=== PATIENT | female | born 1960 | race Caucasian/White ===

== ENCOUNTER 2020-03-25 08:28 | Outpatient (CLI) | payer BC, SELFPAY ==
--- NOTE | ~2020-03-25 | MM_ITS ---
EXAMINATION: MM screening nancy BI w dominique HISTORY: Screening mammogram TECHNIQUE: Craniocaudal and mediolateral oblique 3-D tomosynthesis images were obtained and synthetic 2-D images were generated. CAD analysis was submitted and interpreted. COMPARISON: 03/12/2019, 09/07/2017, 05/23/2015 bilateral digital screening mammogram examinations BREAST PARENCHYMAL COMPOSITION: There are scattered areas of fibroglandular density. FINDINGS: There is a biopsy marker or suture on the left; history of prior benign left breast biopsy. Scattered bilateral benign calcifications are noted. There is no evidence of suspicious mass, calcifi cation, or architectural distortion to suggest malignancy in either breast. There has been no suspici ous interval change. IMPRESSION: 1. No mammographic evidence of malignancy. 2. Recommend routine screening mammography in one year. BI-RADS Category 2: Benign finding(s). Reviewed, dictated and finalized at location A.
== END 2020-03-25 08:29 | disposition home or self-care (01) ==
PROVIDERS: PCP Family Medicine; Visit Provider Student in an Organized Health Care Education/Training Program
DX: Z12.31 Encounter for screening mammogram for malignant neoplasm of breast (principal)
CPT/HCPCS: 77063; 77067

== ENCOUNTER 2020-06-13 10:30 | Outpatient (NON) | payer BC, SELFPAY ==
[2020-06-13 23:29] LABS: SARS-CoV-2 RNA PCR Positive
== END 2020-06-13 10:31 ==
PROVIDERS: PCP Family Medicine; Visit Provider Nurse Practitioner Family
DX: U07.1 COVID-19 (principal)
CPT/HCPCS: C9803; U0003

== ENCOUNTER → 2020-10-24 07:29 | Outpatient (CLI) | payer BC, SELFPAY ==
--- NOTE | ~2020-10-24 | XR_ITS ---
XR chest 2V DATE: 10/24/2020 07:40 INDICATION: Cough. History of Covid in June 2020 TECHNIQUE: 2 views COMPARISON: 02/11/2016 2 view chest FINDINGS: Normal heart size. No hilar or mediastinal enlargement. No pulmonary infiltrate or consolid ation, pleural effusion or pulmonary vascular congestion or pneumothorax. Surgical clips overlie the upper abdomen on the right, likely due to cholecystectomy. IMPRESSION: No active cardiopulmonary disease Reviewed, dictated and finalized at location B.
== END ==
PROVIDERS: PCP Family Medicine; Visit Provider Family Medicine
DX: R05 Cough (principal); R06.00 Dyspnea, unspecified; R53.83 Other fatigue
CPT/HCPCS: 71046

== ENCOUNTER 2020-11-04 10:30 | Outpatient (RCR) | payer BC, SELFPAY ==
--- NOTE | 2020-10-09 08:58 | PTOPEVAL ---
Thank you for referring Tere Carr to [facility].? The patient is scheduled to be seen for therapy? 2 x/week for 5 weeks. Please review, sign, date and return this plan of care HORACIO. I agree with and certify that the following plan of care is medically necessary. Referring Physician Date Attending Provider: Segundo Bradley MD Physical Therapy Evaluation Diagnosis calcific tendonitis left shoulder Onset 3-4 months ago Additional Evaluation Detail She received treatment for the right shoulder 3-4 yrs ago. She received an injection on . Subjective Information She has been having issues Query Text:As Reported By Patient/ with her left shoulder for 3-4 Family months. She has the same problem on the right shoulder. 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 She has trouble sleeping on her sides. She also c/o numbness and tingling into left UE. 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 She does yoga 1x/wk, but has increased pain. Diagnostic Tests X-Rays For This Problem Yes: Multiple calcific deposits in the subacromial space Pain Assessment Pain Scale Used Numeric (1 - 10) Self Report Pain Assessment Left Shoulder(s) Reported Pain Level 3 Pain Description Numbness,Radiating,Tingling, With Movement Pain Frequency Chronic,Continuous Lowest Pain Intensity 2 Greatest Pain Intensity 7 Pain Aggravating Factors ADL's,Exercise/Activity, Lifting,Prolonged Position Cervical and Lumbar ROM Cervical ROM Cervical Lateral Flexion Right (0-50) 20 Cervical Lateral Flexion Left (0-50) 20 Cervical Rotation Right (0-90) 40 Cervical Rotation Left (0-90) 40 Cervical ROM Comments pain with motion Upper Extremity Range of Motion Scapular/ Shoulder Range of Motion Right Shoulder Flexion - Active 160 Shoulder Extension - Active 60 Shoulder Abduction - Active 120 Shoulder Medial Rotation - Active 65 Shoulder Medial Rotation - Active T10 Query Text:Reach Behind the Back Shoulder Lateral Rotation - Active 60 Shoulder Lateral Rotation - Active C6 Query Text:Reach Behind the Head
--- NOTE | 2020-10-13 08:09 | PCPTNOTE ---
Patient called & cancelled scheduled appointment this date no reason provided.
--- NOTE | 2020-10-30 08:26 | PCPTNOTE ---
Patient called & cancelled scheduled appointment this date due to not feeling well.
--- NOTE | 2020-11-04 15:05 | PTOPEVAL ---
Thank you for referring Tere Carr to [facility].? Tere has received 7 therapy visits to address her shoulder limitations. As a result of skilled therapy services she demonstrates improved shoulder motion, improved shoulder and scapular strength, improved UE pain and function. She has achieved most of her therapy goals a this time. Will DC skilled therapy service with recommendations for Tere to continue with her home program. Please review, sign, date and return this discharge noted HORACIO. I agree with and certify that the following plan of care is medically necessary. Referring Physician Date Attending Provider: Segundo Bradley MD Physical Therapy Discharge Note Diagnosis calcific tendonitis left shoulder Onset 3-4 months ago Additional Evaluation Detail She received treatment for the right shoulder 3-4 yrs ago. She received an injection on . Subjective Information She is able to move the Query Text:As Reported By Patient/ shoulder better without the Family intensity pain. she is able to carrying objects, reaching activities in all directions and daily activities. She is able to tolerate yoga class better. 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 She continues to have trouble sleeping on her sides. She denies any c/o numbness and tingling into left UE. Pain Assessment Self Report Pain Assessment Left Shoulder(s) Reported Pain Level 3 Pain Description Soreness,Tender on Palpation Pain Frequency Chronic Lowest Pain Intensity 2 Greatest Pain Intensity 6 Pain Aggravating Factors Other Pain Aggravating Factors Other Pain Aggravating Factors rolling onto shoulder or weight bearing Pain Score Pain Score 3: Self Report Interventions Used Interventions Used By Clinicians Education Cervical and Lumbar ROM Cervical ROM Cervical Lateral Flexion Right (0-50) 30 Cervical Lateral Flexion Left (0-50) 30 Cervical Rotation Right (0-90) 60 Cervical Rotation Left (0-90) 52 Upper Extremity Range of Motion Scapular/ Shoulder Range of Motion Left Shoulder Flexion - Active 170 Shoulder Extension - Active 52 Shoulder Abduction - Active 175 Shoulder Medial Rotation - Active 85 Shoulder Medial Rotation - Active T9 Query Text:Reach Behind the Back Shoulder Lateral Rotation - Active 85 Shoulder Lateral Rotation - Active T2
== END 2020-11-05 11:42 | disposition home or self-care (01) ==
LOC: ANHPT 10:30
PROVIDERS: PCP Family Medicine; Visit Provider Orthopaedic Surgery
DX: M75.32 Calcific tendinitis of left shoulder (principal)
CPT/HCPCS: 97035; 97110; 97140; 97162

== ENCOUNTER 2020-11-06 12:31 | Outpatient (CLI) | payer BC, SELFPAY ==
--- NOTE | 2020-11-06 | ECHO_ITS ---
Patient Info Name: Tere Carr Age: 60 years : 1960 Gender: Female Ht: 62 in Wt: 208 lbs BSA: 2.08 m2 HR: 78 bpm BP: 109 / 88 mmHg Heart Rhythm: Sinus Rhythm Technical Quality: Good Exam Date: 11/06/2020 1:07 PM Exam Location: [facility] Patient Status: Outpatient Admit Date: 11/06/2020 Staff Ordering Physician: Jacob, Rhea Cabrera MD Sliver Lap Machine Tender: MC Attending Provider: Jacob, Rhea Cabrera MD Referring Physician: Jacob CLEMONS; Exam Type: CA echo doppler color flow Study Info Indications - COUGH FUNG FATIGUE Complete two-dimensional, color flow and Doppler transthoracic echocardiogram is performed. Summary 1. Complete two-dimensional, color flow and Doppler transthoracic echocardiogram is performed. 2. Left ventricular chamber dimension is normal. 3. Left ventricular systolic function is normal, estimated at 55-60%. 4. There is no increased left ventricular wall thickness. 5. The left ventricular diastolic function is grade I diastolic dysfunction. 6. There is mild mitral valve regurgitation. Left Ventricle Left ventricular chamber dimension is normal. Left ventricular systolic function is normal, estimated at 55-60%. There is no increased left ventricular wall thickness. The left ventricular diastolic function is grade I diastolic dysfunction. Right Ventricle Right ventricular chamber dimension is normal. Right ventricular systolic function is normal. Left Atria Left atrial chamber dimension is normal. Right Atria Right atrial chamber dimension is normal. Atrial Septum Intact interatrial septum visualized by color flow imaging. Aortic Valve The aortic valve is trileaflet. There is mild aortic valve sclerosis. There is no aortic valve stenosis. There is trace aortic valve regurgitation. Pulmonic Valve The pulmonic valve is normal. There is no pulmonic valve stenosis. There is trace pulmonic regurgitation. Mitral Valve The mitral valve has normal leaflets. There is no mitral valve stenosis. There is mild mitral valve regurgitation. Tricuspid Valve The tricuspid valve leaflets are normal. There is no significant tricuspid valve stenosis. There is trace tricuspid valve regurgitation. Pericardium/Pleural The pericardium appears normal. There is no pericardial effusion. Inferior Vena Cava Normal inferior vena cava with >50% collapse upon inspiration consistent with normal right atrial pressure, 5 mmHg. Aorta The aortic root size at the sinus of Valsalva is normal. The prox ascending aorta size is normal. Left Ventricular Outflow Tract Name Value Normal LVOT 2D LVOT Diameter 2.2 cm LVOT Doppler LVOT Peak Gradient 4 mmHg LVOT Mean Gradient 2 mmHg LVOT VTI 20 cm LVOT VTI/AV VTI Ratio 0.9 LVOT Stroke Volume 77 ml LVOT CO 16.6 l/min LVOT CI 8.0 l/min/m2 Pulmonic Valve
== END 2020-11-06 12:32 | disposition home or self-care (01) ==
LOC: ANHCARD 12:33
PROVIDERS: PCP Family Medicine; Visit Provider Family Medicine
DX: R05 Cough (principal); R53.83 Other fatigue
CPT/HCPCS: 93306

== ENCOUNTER 2021-05-01 08:00 | Outpatient (CLI) | payer BC, SELFPAY ==
--- NOTE | ~2021-05-01 | MM_ITS ---
EXAMINATION: MM screening nancy BI w dominique HISTORY: Screening mammogram TECHNIQUE: Craniocaudal and mediolateral oblique 3-D tomosynthesis images were obtained and synthetic 2-D images were generated. CAD analysis was submitted and interpreted. COMPARISON: No prior mammogram is available for comparison at this institution. BREAST PARENCHYMAL COMPOSITION: There are scattered areas of fibroglandular density.. FINDINGS: Status post anterior upper outer quadrant left breast biopsy; history of prior benign left breast biopsy. Scattered bilateral benign calcifications. There is no evidence of suspicious mass, ca lcification, or architectural distortion to suggest malignancy in either breast. There has been no dudley spicious interval change. IMPRESSION: 1. No mammographic evidence of malignancy. 2. Recommend routine screening mammography in one year. BI-RADS Category 2: Benign finding(s). Reviewed, dictated and finalized at location A. RUNNER
== END 2021-05-01 08:01 | disposition home or self-care (01) ==
LOC: ANHIMG 08:01
PROVIDERS: PCP Family Medicine; Visit Provider Student in an Organized Health Care Education/Training Program
DX: Z12.31 Encounter for screening mammogram for malignant neoplasm of breast (principal)
CPT/HCPCS: 77063; 77067

== ENCOUNTER 2021-05-05 00:51 | Day surgery (SDC) | payer BC, SELFPAY ==
[2021-04-16 14:45] VITALS: BMI 37.2
[2021-05-05 10:24] VITALS: BP 146/93; PULSE 86; RESP 18; TEMP 36.2; O2SAT 98
[2021-05-05] MEDS: LACTATED RINGERS 1,000 ML 150 ML IV CONT (10:25)
--- NOTE | 2021-05-05 10:49 | WPDANESEPPF ---
Anes - Initial Pre Proc Eval Procedure: Operation Date: 05/05/21 11:15 Proposed Procedures p Colonoscopy - Marcos Schaffer MD Date/Time: 05/05/21 10:49 Surgeon: Marcos Schaffer MD Pre Op Diagnosis: change in bowel habits Patient Data Age: 61 Gender: F Height: 1.57 m Weight: 92.1 kg Last Vital Signs Temp 97.1 F L 05/05/21 10:24 Pulse 86 05/05/21 10:24 Resp 18 05/05/21 10:24 BP 146/93 H 05/05/21 10:24 Pulse Ox 98 05/05/21 10:24 Allergies Allergy/AdvReac Type Severity Reaction Status Date / Time No Known Allergies Allergy Verified 05/05/21 10:23 Home Medications Medication Instructions Recorded Confirmed Type fluticasone propionate 50 1 spray INTRANASAL DAILY 03/21/20 05/05/21 History mcg/actuation nasal spray,suspension lisinopril 10 mg tablet 10 mg PO DAILY 03/21/20 05/05/21 History timolol maleate 0.5 % once daily 1 drp OPHTHALMIC (EYE) DAILY 03/21/20 05/05/21 History eye drops paroxetine HCl 50 mg PO DAILY 04/16/21 05/05/21 History Patient hx anesthesia problems: none Family hx anesthesia problems: none Results Review: All pre-operative results and documents have been reviewed as part of the pre-operative evaluation. [facility] Past Medical History Medical History Calcific tendinitis of left shoulder Complete miscarriage GERD (gastroesophageal reflux disease) History of COVID-19 06/2020 Hypercholesterolemia Hypertension IBS (irritable bowel syndrome) Open angle primary glaucoma Surgical History Surgical History Cancer malignant melanoma excised right shoulder area Cholecystectomy planned H/O foot surgery H/O: hysterectomy [place] teeth removed Family History Family History Father Liver disease Mother Lung cancer Brain cancer Sibling Heart disease Social History Social History Smoking packs per day: 1 Smoking cigarettes per day: 20.0 Years smoked: 22 Smoking pack-years: 22.00 Smoking status: Former smoker Tobacco type: cigarettes Second hand tobacco smoke exposure: No Smoking end date: 06/06/99 Alcohol intake: current Drinks per week: 1 Alcohol use details: rarely Substance use: current Substance use type: marijuana Other substance usage details: weekends Living arrangements: with family Gender identity (if verbalized by the patient): Female Spiritual care concerns: No Anes - Eval Final PreProcedure Day of Procedure 05/05/21 10:49 Patient weight: obese Heart: regular rate and rhythm Lungs: clear to auscultation Airway: Mallampati scale class II Neurological: alert and oriented Last oral intake: >/= 8 hours ASA classification: III Emergent: no Anesthetic plan: proceed Anesthesia type and monitoring: general GIVS and standard monitoring Results Review: All pre-operative results and documents have been reviewed as part of the pre-operative evaluation. Informed Consent: The patient's anesthetic plan and its attendant risks and benefits were discussed with the patient/family/POA. Questions were solicited and answers provided to the satisfaction of the patient/family/POA.
--- NOTE | 2021-05-05 10:58 | WPDGICN ---
Assessment and Plan Assessment and plan (1) Change in bowel habit: Code(s): R19.4 - Change in bowel habit Status: Acute Assessment and Plan: Patient has had recent change in bowel habits with more regular stools. She feels a rectal fullness. Plan is for colonoscopy to evaluate more thoroughly. Further recommendations will be given after endoscopy. GI Consult Note Consult date/time: 05/05/21 10:58 HPI: Tere Carr is a 61 year old female Presents for colonoscopy. Patient reports that over the last 1 year his felt a fullness in her rectal area. Initially she was unsure where this emanated from. She recently saw gynecology was told that exam was unremarkable. Patient denies any bleeding. She denies any fever. She denies any pain. She has noticed that her stools have become narrowed over the last several months. Her bowel habits she reports as being irregular . She takes no medications for this. Family history is noncontributory. She does report a prior colonoscopy by Dr. Amador that was unremarkable. She does not remember when this was obtained. She presents today for colonoscopy to evaluate this fullness. Review of Systems Review of Systems: All systems reviewed & are unremarkable except as noted in HPI and below PMFSH Past Medical History Medical History Calcific tendinitis of left shoulder Complete miscarriage GERD (gastroesophageal reflux disease) History of COVID-19 06/2020 Hypercholesterolemia Hypertension IBS (irritable bowel syndrome) Open angle primary glaucoma Surgical History Surgical History Cancer malignant melanoma excised right shoulder area Cholecystectomy planned H/O foot surgery H/O: hysterectomy [place] teeth removed Family History Family History Father Liver disease Mother Lung cancer Brain cancer Sibling Heart disease Social History Social History Smoking packs per day: 1 Smoking cigarettes per day: 20.0 Years smoked: 22 Smoking pack-years: 22.00 Smoking status: Former smoker Tobacco type: cigarettes Second hand tobacco smoke exposure: No Smoking end date: 06/06/99 Alcohol intake: current Drinks per week: 1 Alcohol use details: rarely Substance use: current Substance use type: marijuana Other substance usage details: weekends Living arrangements: with family Gender identity (if verbalized by the patient): Female Spiritual care concerns: No Meds Home Medications and Allergies Home Medications Medication Instructions Recorded Confirmed Type fluticasone propionate 50 1 spray INTRANASAL DAILY 03/21/20 05/05/21 History mcg/actuation nasal spray,suspension lisinopril 10 mg tablet 10 mg PO DAILY 03/21/20 05/05/21 History timolol maleate 0.5 % once daily 1 drp OPHTHALMIC (EYE) DAILY 03/21/20 05/05/21 History eye drops paroxetine HCl 50 mg PO DAILY 04/16/21 05/05/21 History Allergies Allergy/AdvReac Type Severity Reaction Status Date / Time No Known Allergies Allergy Verified 05/05/21 10:23 Vital Signs Vital Signs - 24 hr 05/05/21 10:24 Temperature 97.1 F L Pulse Rate 86 Respiratory Rate 18 Blood Pressure 146/93 H Pulse Oximetry 98 Exam Narrative: Physical exam reveals patient to be alert. Vital signs stable. HEENT exam is unremarkable. Patient is anicteric. Lungs are clear to auscultation and to percussion. Heart is without murmur or extra sounds. Abdominal exam bowel sounds are present soft nontender with no organomegaly. Digital external rectal exam is normal.
[2021-05-05 11:19] VITALS: BP 120/75; PULSE 86; RESP 19; O2SAT 95
[2021-05-05 11:29] VITALS: BP 123/79; PULSE 80; RESP 27; O2SAT 99
[2021-05-05 11:39] VITALS: BP 125/77; PULSE 71; RESP 22; O2SAT 99
== END 2021-05-05 11:52 | disposition home or self-care (01) ==
PROVIDERS: PCP Family Medicine; Visit Provider Internal Medicine Gastroenterology
PROC: 0DJD8ZZ Inspection of Lower Intestinal Tract, Via Natural or Artificial Opening Endoscopic (ICD-10-PCS; CPT 45378; principal; 2021-05-05 11:15)
DX: R19.4 Change in bowel habit (principal); K64.8 Other hemorrhoids; K21.9 Gastro-esophageal reflux disease without esophagitis; I10 Essential (primary) hypertension; E78.00 Pure hypercholesterolemia, unspecified; K58.9 Irritable bowel syndrome, unspecified; Z86.16 Personal history of COVID-19; H40.1190 Primary open-angle glaucoma, unspecified eye, stage unspecified; Z87.891 Personal history of nicotine dependence; E66.9 Obesity, unspecified; Z68.37 Body mass index [BMI] 37.0-37.9, adult
CPT/HCPCS: 45378; J2704; J7120

== ENCOUNTER → 2021-05-16 08:34 | Outpatient (CLI) | payer BC, SELFPAY ==
[2021-05-16 20:10] LABS: SARS-CoV-2 RNA PCR Negative
== END ==
PROVIDERS: PCP Family Medicine; Visit Provider Nurse Practitioner Family
DX: R10.9 Unspecified abdominal pain (principal); Z20.822 Contact with and (suspected) exposure to COVID-19
CPT/HCPCS: C9803; U0003; U0005

== ENCOUNTER 2021-12-19 07:33 | Outpatient (CLI) | payer BC, SELFPAY ==
--- NOTE | ~2021-12-19 | MR_ITS ---
EXAMINATION: MR shoulder RT wo con DATE: 12/19/2021 08:11 INDICATION: Right shoulder pain. No trauma. History of melanoma. TECHNIQUE: Magnetic resonance imaging (MRI) of the right shoulder was performed without intravenous c ontrast. Sequences included axial PD-weighted FS FSE, coronal oblique PD-weighted FS FSE and T2-weigh hernandez FS FSE, and sagittal oblique T2-weighted FS FSE and T1-weighted FSE. COMPARISON: X-ray shoulder 02/16/2021. FINDINGS: Coracoacromial arch: Lateral downsloping of the type I acromion, with inferiorly directed AC joint osteophytes and acromia l tip enthesopathy. Subcoracoid narrowing. Rotator cuff: Signal abnormality within the superior cuff, without focal tear. Low signal foci may represent calcif ication. Biceps tendon and glenoid labrum: The long and short heads of the biceps are intact. No labral tear. Fluid: No significant glenohumeral fluid. Small volume subacromial subdeltoid fluid. Bones/cartilage: No suspicious focal or diffuse marrow signal. Glenohumeral narrowing and cartilage thinning. IMPRESSION: 1. Supraspinatus and infraspinatus tendinopathy, with evidence of calcific tendinitis. 2. Osseous outlet compromise and subcoracoid narrowing. 3. Severe AC joint hypertrophy. 4. Mild glenohumeral osteoarthritis. Reviewed, dictated and finalized at location K. IMPRESSION: 1. Supraspinatus and infraspinatus tendinopathy, with evidence of calcific tend initis. 2. Osseous outlet compromise and subcoracoid narrowing. 3. Severe AC joint hypertrophy. 4. Mild glenohumeral osteoarthritis.
== END 2021-12-19 07:34 ==
PROVIDERS: PCP Family Medicine; Visit Provider Orthopaedic Surgery
DX: M25.511 Pain in right shoulder (principal); M75.31 Calcific tendinitis of right shoulder; M19.011 Primary osteoarthritis, right shoulder
CPT/HCPCS: 73221

== ENCOUNTER 2022-01-21 08:25 | Outpatient (CLI) | payer BC, SELFPAY ==
--- NOTE | 2022-01-21 08:30 | ECG_ITS ---
Rate 80 IL 170 QRSd 78 QT 351 QTc 405 --Hope-- P 52 QRS -8 T 29 SINUS RHYTHM MINIMAL VOLTAGE CRITERIA FOR LVH, CONSIDER NORMAL VARIANT [MEETS CRITERIA IN ONE OF: R(aVL), S(V1), R(V5), R(V5/V6)+S(V1)] ABNORMAL ECG NO PREVIOUS ECG AVAILABLE FOR COMPARISON Electronically Signed On 01-21-2022 14:46:00 CDT by Theodore SURESH
== END 2022-01-21 08:26 | disposition home or self-care (01) ==
PROVIDERS: PCP Family Medicine; Visit Provider Orthopaedic Surgery
DX: I10 Essential (primary) hypertension (principal); Z01.818 Encounter for other preprocedural examination
CPT/HCPCS: 93005

== ENCOUNTER 2022-01-25 01:42 | Day surgery (SDC) | payer BC, SELFPAY ==
[2022-01-19 13:48] VITALS: BMI 35.4
--- NOTE | 2022-01-19 13:54 | PC.NURSE ---
Addendum entered by Claudia Kumar RN 01/20/22 11:04: MAY TAKE PAROXETINE MORNING OF SURGERY WITH SMALL SIP OF WATER. Original Note: Report to the Outpatient Waiting Room, entrance under the [facility] pavilion located off [facility], at time __0600 on date _01/25/22_. OR Time: _0730_. - You and your visitor will be asked to self-screen and do not enter if you have any COVID symptoms. - Only one visitor and NO children visitors are allowed at this time. - The patient visitor is requested to leave or wait in car when not with patient due to restrictions. - A mask is required within the hospital. Patients may have clear liquids (water, carbonated beverages, clear teas, apple juice) until 3 hours prior to surgery with a maximum of 20 ounces. - No food from midnight until time of surgery - Infants may have breast milk until 4 hours before surgery, infant formula 6 hours prior to surgery. - Children will be allowed to drink immediately following surgery. If applicable, please bring a bottle or sippy cup to assist with drinking. Juice, water, soda, and popsicles are readily available. For infants on formula, please bring formula the day of surgery. Pacifiers are allowed. Take the following medications with a SIP of water the morning of surgery: ____NONE Medications to discontinue per physician NONE Date to take last dose Please no make-up, nail tajik, hairspray, perfume, deodorant, or body powder the day of surgery. No jewelry (including any body piercings) or valuables the day of surgery, leave them at home. Please take a shower or bath the night before, or the morning of, surgery with an HIBICLENS OR antibacterial soap. Wear comfortable, loose fitting clothing. Children are encouraged to wear pajamas. - Jewelry must be removed prior to entering the operating room. Rings and piercings that are not removed may be cut off. - The hospital will not accept responsibility for valuables. - Please leave all valuables, including medications, at home the day of surgery. If you are going home after surgery, a licensed electric screw driver operator must drive you home. - NO public transportation without another adult. - We recommend that an adult stay with you for 24 hours following discharge. - We also recommend that you do not drive, make important decision, drink alcoholic beverages, or take any drugs that were not prescribed by your health care provider for at least 24 hours after your discharge time. For Pediatric surgeries, we recommend two adults accompany the child home (only one inside the building at this time). Follow any additional instructions given to you from your surgeon. If you or anyone in your household have experienced Covid symptoms in the past week, please notify your surgeon or the nurse liaison at the phone number below for possible testing. Telephone instructions given to __PATIENT__and asked if any additional questions and then verbalized understanding. Patient advised to call surgeon office or pre surgery nurse liaison [phone] if any additional questions.
[2022-01-25] VITALS (11 sets, daily range): BP systolic 117–167; BP diastolic 58–92; PULSE 69–109; RESP 12–20; TEMP 36–36.6; O2SAT 94–100
--- NOTE | 2022-01-25 06:45 | WPDANESEPPF ---
Anes - Initial Pre Proc Eval Procedure: Operation Date: 01/25/22 07:30 Proposed Procedures p Right Rotator Cuff Repair, Distal Clavicle Excision - Segundo Bradley MD Date/Time: 01/25/22 06:45 Surgeon: Segundo Bradley MD Pre Op Diagnosis: right AC arthritis calcification tendonitis Patient Data Age: 61 Gender: F Height: 1.57 m Weight: 88 kg Allergies Allergy/AdvReac Type Severity Reaction Status Date / Time No Known Allergies Allergy Verified 01/25/22 06:52 Home Medications Medication Instructions Recorded Confirmed Type fluticasone propionate 50 1 spray intranasal DAILY 03/21/20 01/25/22 History mcg/actuation nasal spray,suspension lisinopril 10 mg tablet 10 mg PO DAILY 03/21/20 01/25/22 History timolol maleate 0.5 % once daily 1 drp ophthalmic (eye) DAILY 03/21/20 01/25/22 History eye drops paroxetine HCl 10 mg tablet 50 mg PO DAILY 04/16/21 01/25/22 History oxybutynin chloride 5 mg tablet 10 mg PO DAILY 11/12/21 01/25/22 History Patient hx anesthesia problems: none Family hx anesthesia problems: none Results Review: All pre-operative results and documents have been reviewed as part of the pre-operative evaluation. [facility] Past Medical History Medical History (Updated 01/25/22 @ 06:48 by Jose Martinez DO) Arthritis of right acromioclavicular joint Asthma Calcific tendinitis of left shoulder Calcific tendinitis of right shoulder Complete miscarriage GERD (gastroesophageal reflux disease) Glaucoma History of COVID-19 06/2020 Hypercholesterolemia Hypertension IBS (irritable bowel syndrome) Open angle primary glaucoma RAINER (obstructive sleep apnea) PONV (postoperative nausea and vomiting) Surgical History Surgical History Cancer malignant melanoma excised right shoulder area Cholecystectomy planned H/O foot surgery H/O: hysterectomy [place] teeth removed Family History Family History Father Liver disease Mother Lung cancer Brain cancer Sibling Heart disease Social History Social History Smoking packs per day: 1 Smoking cigarettes per day: 20.0 Years smoked: 20 Smoking pack-years: 20.00 Smoking status: Former smoker Tobacco type: cigarettes Second hand tobacco smoke exposure: No Smoking end date: 06/06/99 Alcohol intake: current Drinks per week: 1 Alcohol use details: 2 PER MONTH Substance use: current Substance use type: marijuana Other substance usage details: EDIBLES, USES WEEKLY Living arrangements: with family Gender identity (if verbalized by the patient): Female Spiritual care concerns: No Anes - Eval Final PreProcedure Day of Procedure 01/25/22 06:45 Patient weight: obese Heart: regular rate and rhythm Lungs: clear to auscultation Airway: Mallampati scale class 1 Neurological: alert and oriented Last oral intake: >/= 8 hours ASA classification: III Emergent: no Anesthetic plan: proceed Anesthesia type and monitoring: general ETT and standard monitoring Results Review: All pre-operative results and documents have been reviewed as part of the pre-operative evaluation. Informed Consent: The patient's anesthetic plan and its attendant risks and benefits were discussed with the patient/family/POA. Questions were solicited and answers provided to the satisfaction of the patient/family/POA.
--- NOTE | 2022-01-25 06:48 | WPDANESPNB ---
Anes - Peripheral Nerve Block Date/Time: 01/25/22 06:48 I have discussed with the patient/family/POA the placement of a peripheral nerve block for post-operative pain management, including associated risks, benefits, complications, and side effects. Alternative methods of post-operative analgesia were detailed. Questions were solicited and answers provided to the satisfaction of the patient/family/POA. Time-Out: A pre-procedural Time-Out was completed immediately before starting the procedure and confirmed: Patient Identification, Site, Procedure, Patient Position and the Availability of Requisite Equipment. Clinical Indications: Acute post-operative pain management requested by the operative surgeon. Nerve Block Insertion Note Anes-nerve block: interscalene right Patient position: supine Skin prep: chlorhexidine Needle: 22 gauge, stimulating, insulated echogenic needle. Needle length: 50 mm Technique: ultrasound Injectate: bupivacaine 0.5% with epi 5 mcg/ml (30cc- no epi) Observations: tolerated well Complications: none Procedure start time:: 716 Procedure end time:: 720
[2022-01-25] MEDS: LACTATED RINGERS 1,000 ML 30 ML IV CONT ×2 (07:00→10:50)
--- NOTE | 2022-01-25 07:08 | WPDHPUPDATE1 ---
History and Physical Update Update Date/Time: 01/25/22 07:08 History and Physical has been reviewed, including an updated exam of the patient. There are NO changes in the patient's condition. Risks, benefits, and alternatives have been discussed and questions answered. Patient agrees to proceed with procedure.
[2022-01-25] MEDS: ACETAMINOPHEN 500 MG TABLET 1000 MG PO (07:10)
[2022-01-25] MEDS: KETOROLAC 15 MG/ML VIAL (*BKC) IV PUSH (07:12)
[2022-01-25] MEDS: ceFAZolin 2 GM/D5W 50 ML 2 GM/50 ML BAG IVPB (07:25)
[2022-01-25] MEDS: BUPIVACAINE/EPINEPHRINE 0.25% 50 ML VIAL INFILTRATE (08:02)
--- NOTE | 2022-01-25 08:43 | P.OP_ITS ---
Procedure Note - Detailed Date of Procedure 01/25/22 Pre-op Diagnosis right AC arthritis; calcific tendinitis right rotator cuff Post-op Diagnosis Same Procedure Performed Right shoulder distal clavicle excision with debridement of calcific tendinitis rotator cuff Surgeon Segundo Bradley MD Packing Tractor Machine Operator Valerie Mulligan Anesthesia General and Regional Description of Procedure Patient was identified and proper site identified. In the preop holding area the anesthesia team performed a right upper extremity block. She was then taken to the operating room and transferred to the or table taking care to pad the torso and extremities. After general anesthetic induction and intubation, she was put in a semi beach chair position in the usual manner for a right shoulder procedure. Her head was secured taking care to neither rotate nor extend the head and neck. The right upper extremity was prepped and draped free in usual sterile fashion. The subcutaneous tissue in the area of the incision was injected with 10 cc of 0.25% Marcaine and epinephrine solution. An oblique anterior incision was made extending from the AC joint distally in line with the fibers of the deltoid. Subcutaneous tissue was sharply dissected down to the deltoid fascia. The deltoid was dissected off the anterior portion of the acromion in the distal end of the clavicle. A 2 cm split was made at the junction between the anterior and middle thirds of the deltoid. Using the microsagittal saw the last 8 mm of clavicle removed. The saw was also used to perform the acromioplasty and then the undersurface of the acromion was rasped smooth. There was an abundance of thickened bursa overlying the entire rotator cuff with an erosive area corresponding to where the spurs were. This was sharply debrided allowing for complete inspection of the cuff. Along the mid to posterior portion of the greater tuberosity there was calcific stippling of the rotator cuff insertion which was debrided with a rongeur. Cuff was inspected and noted to be overall in good condition otherwise. The wound was irrigated wi th sterile NaCl solution. The deltoid was repaired back to the acromion with 2. Ethibond suture passed through bone and the remainder of the deltoid repair carried out with 2. Vicryl. Subcutaneous tissue was reapproximated with 2. Strata fix both in the deeper layers and in the subcuticular layer, then tissue adhesive used for the skin. Sterile dressing was applied. There were no known intraoperative complications, and perioperative antibiotics were administered. Estimated Blood Loss 20 Drains No Packing No Pathology None sent Complications No immediate complications Condition Stable Disposition PACU
[2022-01-25] MEDS: ONDANSETRON INJ 4 MG/2 ML VIAL IV PUSH (10:46)
== END 2022-01-25 12:05 | disposition home or self-care (01) ==
PROVIDERS: PCP Family Medicine; Visit Provider Orthopaedic Surgery
PROC: (CPT 23420; principal; 2022-01-25 07:30)
DX: M19.011 Primary osteoarthritis, right shoulder (principal); M75.51 Bursitis of right shoulder; G89.18 Other acute postprocedural pain; K21.9 Gastro-esophageal reflux disease without esophagitis; Z86.16 Personal history of COVID-19; K58.9 Irritable bowel syndrome, unspecified; I10 Essential (primary) hypertension; E78.00 Pure hypercholesterolemia, unspecified; Z87.891 Personal history of nicotine dependence; F12.90 Cannabis use, unspecified, uncomplicated; M75.31 Calcific tendinitis of right shoulder; E66.9 Obesity, unspecified; Z68.34 Body mass index [BMI] 34.0-34.9, adult
CPT/HCPCS: 23120; 64415; A4565; A9270; J0330; J0690; J1100; J1885; J2250; J2405; J2704; J3010; J7120

== ENCOUNTER 2022-02-22 09:00 | Outpatient (RCR) | payer BC, SELFPAY ==
[2022-01-27 10:05] VITALS: BP_SYST 90
--- NOTE | 2022-01-27 10:55 | PTOPEVAL ---
Thank you for referring Tere Carr to [facility].? She is scheduled to be seen for therapy? 2 x/week for 4 weeks. Please review, sign, date and return this plan of care HORACIO. I agree with and certify that the following plan of care is medically necessary. Referring Physician Date Attending Provider: Segundo Bradley MD Past Medical History Source of Past Medical History Recalled from Previous Visit, Confirmed with Patient/Family Neurological History Hx Neurological Disorders No Significant History Cardiovascular History Hx Hypertension Yes: meds Respiratory History Hx Asthma Yes: allergy-induced Hx COVID-19 Yes: 06/26 Hx Sleep Apnea Yes: wears CPAP Gastrointestinal History Hx Cholecystectomy Yes Genitourinary History Hx Urinary Tract Infection Yes Hx Other Genitourinary Disorders Yes: bladder sling surgery 2019, STRESS INCONTINENCE Musculoskeletal History Hx Orthopedic Surgery Yes: R foot surgery Hx Other Musculoskeletal Disorders Yes: B shoulder pain Hematological History Hx Hematological Disorders No Significant History Endocrine History Hx Other Endocrine Disorders Yes: gestational diabetes HEENT History Hx Glaucoma Yes: taking eye drops Hx Sinus Problems Yes: ALLERGIES Integumentary History Hx Skin Disorders No Significant History Psychosocial History Hx Psychiatric Disorders No Significant History Pain History History of Any Previous or Ongoing No Significant History Instance of Pain Other History Hx Cancer Yes: melanoma Evaluation Information Diagnosis s/p R rotator cuff surgery Onset Subjective Information chronic pain over R shoulder; Query Text:As Reported By Patient/ sling intact over R shoulder [facility]; did not have full motion of shoulder prior to surgery Prior Level of Function Activity Level (Last 3 Months) Occupation not working outside of home Hand Dominance Right Activity of Daily Living Ability Independent Indoor/Home Mobility Independent Community Mobility Independent Stairs Ability Independent Functional Cognition (Planning, Shopping Independent , Taking Medications) Cooking Yes Cleaning Yes Laundry Yes Shopping Yes Driving Yes Comments Additional Prior Level of Function prior to increase in shoulder Comments pain about one month ago, was indep with all home tasks; Pain Assessment Pain Scale
--- NOTE | 2022-02-01 08:06 | PCPTNOTE ---
Patient called & cancelled scheduled appointment this date due to no transportation.
--- NOTE | 2022-02-10 10:40 | PCPTNOTE ---
Patient called & cancelled scheduled appointment this date due to her ride to the clinic cancelling last minute.
--- NOTE | 2022-02-22 09:44 | PTOPDC ---
Assessment and note entered by Kisha Saavedra, PT Evaluation Information Assessment Status Discharge Subjective Information Tere reports: shoulder is doing better--not hurt as much, use arm all the time, doing laundry and home tasks; have not been lifting weight with it though; with sleeping, awaken 2x/night due to pain in shoulder; have not taken any pain meds in the past week; doing exercises OK; feel like ready to be done with therapy; Reported Pain Level Pain Score Self Report pain range 1-3/10 Additional Pain Score Comments use ice PRN; have not taken any pain meds in the past week; kinesiotape strips over shoulder: anterior GH>lat GH joint to scapula strip over upper traps; education to pt on monitor skin and how to apply tape; continues to have some clicking at anterior shoulder, which decreased with holding correct posture with shoulder motions /avoid rounding shoulder; Assessment PT Clinical Summary Tere has received 7 PT sessions. Compared to the initial evaluation: pain has decreased, sleeping tolerance improved; active R shoulder ROM and strength have improved; she is independent with her home exercise program. The goals were achieved. She continues to have some clicking in anterior shoulder, which is decreased with posture correction and pain when lying on her R side with sleeping. Discharge PT services. She is to continue with her HEP, progression with activity as tolerated and ice/rest as needed. Plan of Care PT Services Indicated No
== END 2022-02-22 10:58 | disposition home or self-care (01) ==
LOC: ANHPT 09:00
PROVIDERS: PCP Family Medicine; Visit Provider Orthopaedic Surgery
DX: Z48.89 Encounter for other specified surgical aftercare (principal); Z98.890 Other specified postprocedural states
CPT/HCPCS: 97110; 97161; 97530

== ENCOUNTER 2022-03-24 14:18 | Outpatient (CLI) | payer BC, SELFPAY ==
--- NOTE | ~2022-03-24 | US_ITS ---
EXAMINATION: US soft tissue head and neck DATE: 03/24/2022 14:37 INDICATION: Mass of neck. TECHNIQUE: Multiple ultrasound images of the thyroid were obtained. COMPARISON: None. FINDINGS: The right thyroid lobe measures 4.6 x 1.2 x 1.6 cm. The left thyroid lobe measures 4.6 x 1.5 x 1.4 c m. There is normal echotexture and echogenicity throughout the thyroid gland. No discrete nodules id entified. Normal vascular flow is present. There is no abnormal mass or lymphadenopathy. IMPRESSION: 1. Normal thyroid. Reviewed, dictated and finalized at location A. IMPRESSION: 1. Normal thyroid.
== END 2022-03-24 14:19 ==
LOC: MICIMG 14:20
PROVIDERS: PCP Family Medicine; Visit Provider Family Medicine
DX: R22.1 Localized swelling, mass and lump, neck (principal)
CPT/HCPCS: 76536

== ENCOUNTER 2022-06-09 07:45 | Outpatient (CLI) | payer BC, SELFPAY ==
--- NOTE | ~2022-06-09 | DEXA_ITS ---
Bone Density Report Name: KRISTAL GARCIA Age: 62 Sex: Female Ethnicity: White Date of : 1960 Indication: postmenopausal; screening for osteoporosis; hysterectomy; Referring Provider: LIDIA MORGAN Study: Bone densitometry was performed. Exam Date: June 09, 2022 Accession number: [id number] Bone Density: Region BMD T-score Z-score Classification AP Spine(L1-L4) 1.141 0.9 2.6 Normal Femoral Neck (Left) 0.854 0.0 1.5 Normal Total Hip (Left) 0.954 0.1 1.3 Normal Femoral Neck (Right) 0.797 -0.5 1.0 Normal Total Hip (Right) 0.991 0.4 1.6 Normal Total Hip Mean 0.972 0.3 1.5 Normal World Health Organization criteria for BMD impression classify patients as: Normal (T-score at or above -1.0), Osteopenia (T-score between -1.0 and -2.5), or Osteoporosis (T-score at or below -2.5). 10-year Fracture Risk: FRAX not reported because: All T-scores for Spine Total, Hip Total, Femoral Neck at or above -1.0 Clinical Information Provided by Patient: Has used the following medications: HRT (i.e. estrogen/hormone therapy), Vitamin D Has the following medical conditions: Hysterectomy Patient maximum height was 62.5 Menopause Age: 48 No regular weight bearing exercise Drinks caffeinated beverages Onset of menses at age 12 Number of children 3 Impression: The patient has normal bone mass. Discussion: BONE DENSITY IS ABOVE THE MINIMUM DESIRABLE LEVEL AT ALL SKELETAL SITES TESTED. This patient?s bone mineral density is above the minimum desirable level (T-score -1.0 or better) at all sites measured. The patient should follow a healthful lifestyle (good nutrition with adequate calcium and vitamin D, and appropriate weight-bearing exercise). Follow-Up: Consider repeating this study in 5 years or sooner if there is some new clinical indication. Reported by: [facility] on 06/09/2022 8:15:00 AM. Reviewed, dictated and finalized at location AAmara SURESH
== END 2022-06-09 07:46 | disposition home or self-care (01) ==
LOC: ANHIMG 07:46
PROVIDERS: PCP Family Medicine; Visit Provider Student in an Organized Health Care Education/Training Program
DX: Z78.0 Asymptomatic menopausal state (principal)
CPT/HCPCS: 77080

== ENCOUNTER 2022-06-14 09:38 | Outpatient (CLI) | payer BC, SELFPAY ==
--- NOTE | ~2022-06-14 | MM_ITS ---
EXAMINATION: MM screening nancy BI w dominique HISTORY: Screening mammogram TECHNIQUE: Craniocaudal and mediolateral oblique 3-D tomosynthesis images were obtained and synthetic 2-D images were generated. CAD analysis was submitted and interpreted. COMPARISON: 05/01/2021, 03/25/2020, 03/12/2019 bilateral screening mammogram examinations BREAST PARENCHYMAL COMPOSITION: There are scattered areas of fibroglandular density. FINDINGS: Biopsy marker on the left is again noted; history of prior benign left breast biopsy. Scattered bilateral benign calcifications are again present. There is no evidence of suspicious mass, calcification, or architectural distortion to suggest malignancy in either breast. There has been no suspicious interval change. IMPRESSION: 1. No mammographic evidence of malignancy. 2. Recommend routine screening mammography in one year. BI-RADS Category 2: Benign finding(s). Reviewed, dictated and finalized at location A. TH AND SAFETY ADVISOR
== END 2022-06-14 09:39 | disposition home or self-care (01) ==
LOC: ANHIMG 09:39
PROVIDERS: PCP Family Medicine; Visit Provider Student in an Organized Health Care Education/Training Program
DX: Z12.31 Encounter for screening mammogram for malignant neoplasm of breast (principal)
CPT/HCPCS: 77063; 77067

== ENCOUNTER 2022-11-27 08:12 | Outpatient (CLI) | payer BC, SELFPAY ==
--- NOTE | ~2022-11-27 | MR_ITS ---
MRI of the left shoulder Technique: Axial proton-density fat-sat images, coronal proton density fat-sat and T2 fat-sat images, and sagittal T1-weighted and T2 fat-sat images were acquired. Clinical History: Chronic pain Findings: There is advanced AC joint degenerative change with subacromial spur and bony productive ch jing at the distal clavicle. Coracoclavicular, coracoacromial, and coracohumeral ligaments appear int act. There is low-grade bursal surface partial thickness tearing involving the posterior portion of the dudley praspinatus tendon, with interstitial extension towards the myotendinous junction region.. There is m oderate to advanced supraspinatus and infraspinatus tendinosis. Subscapularis tendon is intact, with severe tendinosis. Tendon of the long head of the biceps is inta ct. No definite labral tear identified. Inferior glenohumeral ligament is intact. No degenerative change of the glenohumeral joint. Minimal j oint effusion present. There is minimal fluid within the subacromial/subdeltoid bursa. No muscle atro phy or edema. Impression: Low-grade bursal surface partial-thickness tear at the posterior portion of the supraspinatus tendon, with interstitial extension towards the myotendinous junction. Moderate to advanced supraspinatus and infraspinatus tendinosis. Severe subscapularis tendinosis. Severe AC joint degenerative change. Reviewed, dictated and finalized at [facility]. Impression: Low-grade bursal surface partial-thickness tear at the posterior portion of the supraspinatus tendon, with interstitial extension towards the myotendinous aj ction. Moderate to advanced supraspinatus and infraspinatus tendinosis. Severe subscap ularis tendinosis. Severe AC joint degenerative change.
== END 2022-11-27 08:13 ==
PROVIDERS: PCP Family Medicine; Visit Provider Orthopaedic Surgery
DX: M19.012 Primary osteoarthritis, left shoulder (principal)
CPT/HCPCS: 73221

== ENCOUNTER 2023-03-15 10:23 | Outpatient (CLI) | payer BC, SELFPAY ==
--- NOTE | 2023-03-15 10:49 | ECG_ITS ---
Measurements Intervals [place] Rate: 65 P: 64 [place]: 174 QRS: -9 QRSD: 84 T: 24 QT: 402 QTc: 420 Interpretive Statements SINUS RHYTHM WITH OCCASIONAL SUPRAVENTRICULAR PREMATURE COMPLEXES MINIMAL VOLTAGE CRITERIA FOR LVH, CONSIDER NORMAL VARIANT [MEETS CRITERIA IN ONE OF: R(aVL), S(V1), R(V5), R(V5/V6)+S(V1)] COMPARED TO ECG 01/21/2022 08:52:23 NO SIGNIFICANT CHANGES Electronically Signed On 03-15-2023 16:27:51 CDT by Lizabeth Rabago M.D.
[2023-03-15 11:19] LABS: Anion Gap 8 mmol/L (8-16); Blood Urea Nitrogen 12 mg/dL (7-17); Calcium 8.9 mg/dL (8.4-10.2); Carbon Dioxide 28 mmol/L (22-30); Chloride 102 mmol/L (98-107); Estimated Glomerular Filt Rate > 60; Glucose 128 mg/dL (65-110); Potassium 3.1 mmol/L (3.4-5.0); Sodium 138 mmol/L (137-145)
== END 2023-03-15 10:24 | disposition home or self-care (01) ==
LOC: ANHSURGERY 10:26
PROVIDERS: Anesthesiology; PCP Family Medicine; Visit Provider Orthopaedic Surgery
DX: I10 Essential (primary) hypertension (principal); Z79.899 Other long term (current) drug therapy; Z01.818 Encounter for other preprocedural examination
CPT/HCPCS: 36415; 80048; 93005

== ENCOUNTER 2023-03-21 03:01 | Day surgery (SDC) | payer BC, SELFPAY ==
[2023-03-08 13:42] VITALS: BMI 36.1
--- NOTE | 2023-03-08 13:43 | PC.NURSE ---
Report to the Outpatient Waiting Room, entrance under the green pavilion located off [facility], at time _0830_ on date _[id number]_. Planned Procedure Time: _1030_. Time changes happen often and if your time is changed the preop area will call you the afternoon before. - You and your visitor will be asked to self-screen and do not enter if you have any COVID symptoms. - A mask is optional within the hospital at this time. Patients may have clear liquids (water, carbonated beverages, clear teas, apple juice) until 3 hours prior to surgery with a maximum of 20 ounces. - No food from midnight until time of surgery Take the following medications with a SIP of water the morning of surgery: ___Escitalopram and Flonase DO NOT STOP ANY OF YOUR OTHER PRESCRIPTION MEDICATIONS PRIOR TO SURGERY ?EXCEPT THE FOLLOWING Medications to discontinue per physician ____None Date to take last dose Please no make-up, nail lao, hairspray, perfume, deodorant, or body powder the day of surgery. No jewelry (including any body piercings) or valuables the day of surgery, leave them at home. Please take a shower or bath the night before, or the morning of, surgery with an antibacterial soap. Wear comfortable, loose fitting clothing. - Jewelry must be removed prior to entering the operating room. Rings and piercings that are not removed may be cut off. - The hospital will not accept responsibility for valuables. - Please leave all valuables, including medications, at home the day of surgery. If you are going home after surgery, a licensed bulk delivery driver must drive you home. - NO public transportation without another adult if you receive anesthesia. - We recommend that an adult stay with you for 24 hours following discharge. - We also recommend that you do not drive, make important decision, drink alcoholic beverages, or take any drugs that were not prescribed by your health care provider for at least 24 hours after your discharge time. Follow any additional instructions given to you from your surgeon. If you or anyone in your household have experienced Covid symptoms in the past week, please notify your surgeon or the nurse liaison at the phone number below for possible testing. Telephone instructions given to __Patient_and asked if any additional questions and then verbalized understanding. Patient advised to call surgeon office or pre surgery nurse liaison [phone] if any additional questions.
[2023-03-21] VITALS (11 sets, daily range): BP systolic 136–163; BP diastolic 52–89; PULSE 75–99; RESP 14–20; TEMP 36.2–36.7; O2SAT 92–99
--- NOTE | 2023-03-21 09:13 | WPDANESEPPF ---
Anes - Initial Pre Proc Eval Procedure: Operation Date: 03/21/23 10:30 Proposed Procedures p Left Rotator Cuff Repair, Distal Clavicle Excision - Segnudo Bradley MD Date/Time: 03/21/23 09:13 Surgeon: Segundo Bradley MD Pre Op Diagnosis: left rotator cuff tear, AC arthritis Patient Data Age: 63 Gender: F Height: 1.59 m Weight: 90.9 kg Allergies Allergy/AdvReac Type Severity Reaction Status Date / Time No Known Allergies Allergy Verified 03/16/23 08:29 Home Medications Medication Instructions Recorded Confirmed Type fluticasone propionate 50 1 spray intranasal DAILY 03/21/20 03/16/23 History mcg/actuation nasal spray,suspension timolol maleate 0.5 % once daily 1 drp ophthalmic (eye) DAILY 03/21/20 03/16/23 History eye drops losartan 100 1 tablet PO DAILY 08/05/22 03/16/23 History mg-hydrochlorothiazide 25 mg tablet escitalopram oxalate 20 mg tablet 20 mg PO DAILY 03/08/23 03/16/23 History Patient hx anesthesia problems: none Family hx anesthesia problems: none Results Review: All pre-operative results and documents have been reviewed as part of the pre-operative evaluation. [facility] Past Medical History Medical History Arthritis of left acromioclavicular joint Asthma Calcific tendinitis of left shoulder Complete miscarriage GERD (gastroesophageal reflux disease) Glaucoma History of COVID-19 06/2020 Hypercholesterolemia Hypertension IBS (irritable bowel syndrome) Left rotator cuff tear Open angle primary glaucoma RAINER (obstructive sleep apnea) Osteoarthritis of hips, bilateral PONV (postoperative nausea and vomiting) Surgical History Surgical History Arthritis of right acromioclavicular joint Distal clavicle excision January 25, 2022 Calcific tendinitis of right shoulder Debridement rotator cuff January 25, 2022 Cancer malignant melanoma excised right shoulder area Cholecystectomy planned H/O foot surgery H/O: hysterectomy [place] teeth removed Family History Family History Father Liver disease Mother Lung cancer Brain cancer Sibling Heart disease Social History Social History Smoking packs per day: 1 Smoking cigarettes per day: 20.0 Years smoked: 20 Smoking pack-years: 20.00 Smoking status: Former smoker Tobacco type: cigarettes Second hand tobacco smoke exposure: No Smoking end date: 03/08/95 Alcohol intake: current Drinks per week: 1 Alcohol use details: 2 PER MONTH Substance use: current Substance use type: marijuana Other substance usage details: daily Lack of Transportation: No Lack of Food: Never True Current Housing: I Have Housing Concerned About Future Housing: No Difficulty Paying Gas/Electric Bills: No Difficulty Paying for Meds: No Currently Unemployed: No Education: Decline to Answer Difficulty w/ Childcare or Family Care: No Living arrangements: with family Gender identity (if verbalized by the patient): Female Spiritual care concerns: No Anes - Eval Final PreProcedure Day of Procedure 03/21/23 09:13 Patient weight: obese Heart: regular rate and rhythm Lungs: clear to auscultation Airway: Mallampati scale class 1 Neurological: alert and oriented Last oral intake: >/= 8 hours ASA classification: III Emergent: no Anesthetic plan: proceed Anesthesia type and monitoring: general ETT and standard monitoring Results Review: All pre-operative results and documents have been reviewed as part of the pre-operative evaluation. Informed Consent: The patient's anesthetic plan and its attendant risks and benefits were discussed with the patient/family/POA. Questions were solicited and answers provided to the satisfaction of the patient/family/POA.
[2023-03-21] MEDS: LACTATED RINGERS 1,000 ML 30 ML IV CONT ×3 (09:15→13:16)
[2023-03-21] MEDS: ACETAMINOPHEN 500 MG TABLET 1000 MG PO (09:15)
[2023-03-21] MEDS: KETOROLAC 15 MG/ML VIAL (*BKC) IV PUSH (09:15)
--- NOTE | 2023-03-21 09:42 | WPDHPUPDATE1 ---
History and Physical Update Update Date/Time: 03/21/23 09:42 History and Physical has been reviewed, including an updated exam of the patient. There are NO changes in the patient's condition. Risks, benefits, and alternatives have been discussed and questions answered. Patient agrees to proceed with procedure.
--- NOTE | 2023-03-21 09:54 | WPDANESPNB ---
Anes - Peripheral Nerve Block Date/Time: 03/21/23 09:54 I have discussed with the patient/family/POA the placement of a peripheral nerve block for post-operative pain management, including associated risks, benefits, complications, and side effects. Alternative methods of post-operative analgesia were detailed. Questions were solicited and answers provided to the satisfaction of the patient/family/POA. Time-Out: A pre-procedural Time-Out was completed immediately before starting the procedure and confirmed: Patient Identification, Site, Procedure, Patient Position and the Availability of Requisite Equipment. Clinical Indications: Acute post-operative pain management requested by the operative surgeon. Nerve Block Insertion Note Anes-nerve block: interscalene left Patient position: supine Skin prep: chlorhexidine Needle: 22 gauge, stimulating, insulated echogenic needle. Needle length: 50 mm Technique: ultrasound Injectate: bupivacaine 0.5% with epi 5 mcg/ml (30cc no epi) and dexamethasone (mg) (8) Observations: tolerated well Complications: none Procedure start time:: 1050 Procedure end time:: 105
[2023-03-21] MEDS: ceFAZolin 2 GM/D5W 50 ML 2 GM/50 ML BAG IVPB (10:37)
[2023-03-21] MEDS: BUPIVACAINE/EPINEPHRINE 0.5% 50 ML VIAL 10 ML INFILTRATE (11:15)
--- NOTE | 2023-03-21 12:00 | P.OP_ITS ---
Procedure Note - Detailed Date of Procedure 03/21/23 Pre-op Diagnosis left rotator cuff tear, AC arthritis Post-op Diagnosis Same Procedure Performed Repair left rotator cuff with distal clavicle excision Surgeon Segundo Bradley MD [employer] Supervisor [facility] Anesthesia General and Regional Description of Procedure Patient was identified and proper site identified. In the preop holding area the anesthesia team performed a leftupper extremity block. She was then taken to the operating room and transferred to the or table taking care to pad the torso and extremities. After general anesthetic induction and intubation, she was put in a semi beach chair position in the usual manner for a left shoulder procedure. Her head was secured taking care to neither rotate nor extend the head and neck. The left upper extremity was prepped and draped free in usual sterile fashion. The subcutaneous tissue in the area of the incision was injected with 10 cc of 0.25% Marcaine and epinephrine solution. An oblique anterior incision was made extending from the AC joint distally in line with the fibers of the deltoid. Subcutaneous tissue was sharply dissected down to the deltoid fascia. The deltoid was dissected off the anterior portion of the acromion in the distal end of the clavicle. A 2 cm split was made at the junction between the anterior and middle thirds of the deltoid. Using the microsagittal saw the last 8 mm of clavicle removed. The saw was also used to perform the acromioplasty and then the undersurface of the acromion was rasped smooth. There was an excessive amount of thickened inflamed bursa which was sharply debrided to allow for visualization of the rotator cuff. There is quite a bit of hyperemia within the cuff. There was some superficial areas of calcification with for joint debrided. There was a small tear the midportion supraspinatus. This was repaired by cleaning up the tendon edge and the tuberosity for the repair and then repaired with an Ethibond suture passed through a bony bridge. This gave a harrington repair which was stable as the shoulder was taken through range of motion. The wound was irrigated with sterile NaCl solution. The deltoid was repaired back to the acromion with 2. Ethibond suture passed through bone and the remainder of the deltoid repair carried out with 2. Vicryl. Subcutaneous tissue was reapproximated with 2. Strata fix and then tissue adhesive used for the skin. Sterile dressing was applied. There were no known intraoperative complications, and perioperative antibiotics were administered. Estimated Blood Loss 30 Drains No Packing No Pathology None sent Complications No immediate complications Condition Stable Disposition PACU [facility] Billing Surgery - Charge Forward: Surgery Billing ([id number]; [id number])
[2023-03-21] MEDS: ONDANSETRON INJ 4 MG/2 ML VIAL IV PUSH (12:24)
[2023-03-21] MEDS: diphenhydrAMINE HCl INJ 50 MG/ML VIAL 25 MG IV PUSH (12:51)
[2023-03-21] MEDS: fentaNYL CITRATE INJ (*CRX) 100 MCG/2 ML VIAL 25 MCG IV PUSH (13:17)
[2023-03-21] MEDS: oxyCODONE HCL (*CRX) 5 MG TAB IR PO (14:02)
== END 2023-03-21 14:41 | disposition home or self-care (01) ==
PROVIDERS: PCP Family Medicine; Visit Provider Orthopaedic Surgery
PROC: (CPT 23420; principal; 2023-03-21 10:30)
DX: M75.102 Unspecified rotator cuff tear or rupture of left shoulder, not specified as traumatic (principal); M75.32 Calcific tendinitis of left shoulder; M19.012 Primary osteoarthritis, left shoulder; G89.18 Other acute postprocedural pain; I10 Essential (primary) hypertension; G47.33 Obstructive sleep apnea (adult) (pediatric); H40.9 Unspecified glaucoma; Z87.891 Personal history of nicotine dependence; F12.90 Cannabis use, unspecified, uncomplicated; E66.9 Obesity, unspecified; Z68.36 Body mass index [BMI] 36.0-36.9, adult
CPT/HCPCS: 23412; 23120; 64415; A4565; A9270; J0330; J0690; J1100; J1170; J1200; J1885; J2250; J2405; J2704; J3010; J7120

== ENCOUNTER 2023-05-04 08:00 | Outpatient (RCR) | payer BC, SELFPAY ==
[2023-03-23 09:00] VITALS: BP_SYST 90
--- NOTE | 2023-03-23 09:51 | OPREHPOC ---
Outpatient Therapy Plan of Care This is a Multidisciplinary Plan of Care that may contain components documented by all disciplines (PT, OT, and ST.) PT Problem 1 PT Problem #1 Knowledge Deficit PT Goal 1 Goal 1* indep with HEP PT Problem 2 PT Problem #2 Pain PT Goal 1 Goal 1* pt report pain of L shoulder, 4/10 at worst 2* self assessment with Quick DASH score of 30% limitation in activity 3* pt report with sleeping, awaken 1x/night due to shoulder pain PT Problem 3 PT Problem #3 Impaired Range of Motion PT Goal 1 Goal active L shoulder ROM in standing, to increase ability to perform home tasks and self care: 1* flexion 140' 2* abduction 140' 3* IR - reach behind back, palm to above waist 4* ER- reach behind head, palm to back of head PT Problem 4 PT Problem #4 Impaired Strength PT Goal 1 Goal increase strength of L shoulder, to improve ability to use L arm for home and self care tasks. pt perform in standing L shoulder motions, 5 reps, with hand weight, through available ROM: 1* flexion with 2# 2* abduction with 2# 3* ER with elbow at side 2# 4* elbow flexion/extension with 4# hand wt
--- NOTE | 2023-03-23 09:51 | PTOPEVAL1 ---
Assessment and note entered by Kisha Saavedra, PT Evaluation Information Assessment Status Evaluation Diagnosis s/p L shoulder arthroscopy with rot cuff repair & distal clavicle excision Onset 03-21-23 Subjective Information since surgery, using ice and sling; nerve block is wearing off, so having more pain and troubles sleeping; ACTIVITY: prior to surgery, indep with all activities; retired; R handed. have had R shoulder surgery few years ago- doing OK with it; Reported Pain Level Pain Score Self Report Additional Pain Score Comments pain range in past few days 3-01/13; L shoulder taking pain meds every 4 hours, per dr instructions; issues with sleeping, awaken 5x/night due to pain- was in the bed; discussed in the recliner with pillow support; Assessment PT Clinical Summary Tere is s/p L shoulder surgery. Prior to surgery she was active and indep. And is R handed. Orders are to start shoulder rehab at phase 1; Quick DASH self rating score of 91% limitation in activity level. With the evaluation: using sling for UE support, dressing intact over shoulder; PROM to L shoulder and active elbow, wrist and hand motions; education to pt on post op protocol. Skilled PT services are indicated for shoulder rehab post op to increase strength and ROM of L shoulder, to increase her activity level to return to indep with all home and self care tasks. Modalities PRN for pain control and education to progress HEP. Plan of Care Interventions Electrical Stimulation,Hot Pack/Cold Pack,Manual Therapy,Patient Education,Therapeutic Activities,Therapeutic Exercise,Ultrasound,Other Other Interventions taping PT Services Indicated Yes Treatment Frequency and 2x/wk for 6 weeks Duration These treatments will address the objective and functional deficits as defined above. The patient will be advanced safely and appropriately in order for the patient to progress towards his/her prior level of function. Additional exercises will be introduced and as well as a comprehensive home exercise program upon discharg
--- NOTE | 2023-05-04 08:57 | PTOPDC ---
Assessment and note entered by Kisha Saavedra, PT Discharge Information Assessment Status Discharge Diagnosis s/p L shoulder arthroscopy with rot cuff repair & distal clavicle excision Onset 03-21-23 Subjective Information shoulder is doing good, doing the exercises at home, want to do yoga again Reported Pain Level Pain Score Self Report Additional Pain Score Comments pain range of 2-6/10; pinching at top of shoulder increase pain: use of arm decrease pain: no meds, not using ice has been rubbing scar; is not able to sleep OK-- no awakening from pain; cannot lie on her L shoulder yet; Assessment PT Clinical Summary Tere has received 13 PT sessions. Compared to the initial evaluation: she has improved in all areas: pain decreased, sleeping without awakening due to shoulder pain, Self assessment Quick DASH from 91 to 11% limitation; increase strength and ROM of L shoulder; L shoulder active ROM in standing: flexion 135', abduction 135'; IR- reach behind back, palm to L SIJ and with stretch, to sacrum. L shoulder functional strength: in standing using 3# hand weight for shoulder exercises. She is indep with HEP and motivated. Reinforced with pt to progress activity as tolerated--she wants to return to yoga. Discussed modify of shoulder positions if needed, when cannot move to end range of motion. Reinforced stretching 2x/day and strengthening 2x/wk. Tere has partially achieved the PT goals. Discharge PT and she is to continue with her HEP. Plan of Care PT Services Indicated No
== END 2023-05-04 11:40 | disposition home or self-care (01) ==
LOC: ANHPT 08:00
PROVIDERS: PCP Family Medicine; Visit Provider Orthopaedic Surgery
DX: Z48.89 Encounter for other specified surgical aftercare (principal); Z98.890 Other specified postprocedural states
CPT/HCPCS: 97014; 97110; 97140; 97161; G0283

== ENCOUNTER 2023-08-04 13:59 | Outpatient (CLI) | payer BC, SELFPAY ==
--- NOTE | ~2023-08-04 | MM_ITS ---
EXAMINATION: MM screening nancy BI w dominique HISTORY: Screening TECHNIQUE: Craniocaudal and mediolateral oblique 3-D tomosynthesis images were obtained and synthetic 2-D images were generated. CAD analysis was submitted and interpreted. COMPARISON: Comparison to multiple prior studies sequentially, with oldest reviewed study dated 05/06. BREAST PARENCHYMAL COMPOSITION: Not dense: There are scattered areas of fibroglandular density. FINDINGS: There are nodular densities scattered throughout the left breast which are slightly more pr ominent than on prior examination. The right breast is stable without evidence for malignancy. IMPRESSION: 1. Developing nodular asymmetries of the left breast. 2. . Additional spot compression and mediolateral views with possible follow-up breast ultrasound rec ommended. BI-RADS Category 0: Incomplete: Needs additional imaging evaluation. Reviewed, dictated and finalized at location A. ARCH SUPPORT SPECIALIST IMPRESSION: 1. Developing nodular asymmetries of the left breast. 2. . Additional spot compression and mediolateral views with possible follow-up breast ultrasound recommended. BI-RADS Category 0: Incomplete: Needs additional imaging evaluation.
== END 2023-08-04 14:00 | disposition home or self-care (01) ==
PROVIDERS: PCP Family Medicine; Visit Provider Registered Nurse
DX: Z12.31 Encounter for screening mammogram for malignant neoplasm of breast (principal); R92.8 Other abnormal and inconclusive findings on diagnostic imaging of breast
CPT/HCPCS: 77063; 77067

== ENCOUNTER 2023-08-26 07:32 | Outpatient (CLI) | payer BC, SELFPAY ==
--- NOTE | ~2023-08-26 | XR_ITS ---
XR knee RT min 4V DATE: 08/26/2023 07:59 INDICATION: Bilateral knee pain TECHNIQUE: [place] and standing AP, PA and lateral views COMPARISON: None FINDINGS: There is prominent periarticular spurring and loss of height at the patellofemoral compartm ent. There is moderate to moderately severe loss of height at the medial compartment and mild peridis anahi spurring at the medial and lateral compartments. No fracture or dislocation or joint effusion, periosteal reaction or bone destruction, radiopaque int ra-articular loose body or chondral calcinosis is evident. IMPRESSION: Tricompartment osteoarthritis, most severe at the patellofemoral compartment Reviewed, dictated and finalized at location B. IMPRESSION: Tricompartment osteoarthritis, most severe at the patellofemoral co mpartment
--- NOTE | ~2023-08-26 | XR_ITS ---
XR knee LT min 4V DATE: 08/26/2023 07:58 INDICATION: Bilateral knee pain TECHNIQUE: [place] and standing AP, PA and lateral views COMPARISON: None FINDINGS: There is lateral subluxation at the patellofemoral joint and severe patellofemoral joint sp anthony narrowing, prominent periarticular spurring as well. There is moderate to moderately severe loss of medial compartment joint space height. There is periar ticular spurring at the medial and lateral compartments. No fracture, dislocation, periosteal reaction or bone destruction, radiopaque intra-articular loose b amanda or chondrocalcinosis or significant joint effusion is evident. IMPRESSION: Tricompartment osteoarthritis, most prominent at the patellofemoral compartment Reviewed, dictated and finalized at location B.
== END 2023-08-26 07:33 ==
PROVIDERS: PCP Orthopaedic Surgery; Visit Provider Family Medicine
DX: M17.0 Bilateral primary osteoarthritis of knee (principal)
CPT/HCPCS: 73564

== ENCOUNTER 2023-09-05 11:47 | Outpatient (CLI) | payer BC, SELFPAY ==
--- NOTE | ~2023-09-05 | MMUS_ITS ---
EXAMINATION: MM diagnostic nancy LT w dominique, US breast LT complete HISTORY: Follow-up left breast asymmetry TECHNIQUE: Additional 3-D tomosynthesis images of the left breast were performed and synthetic 2-D im ages were generated. CAD analysis was submitted and interpreted. High resolution complete left breast ultrasound was performed. COMPARISON: Comparison to multiple prior studies sequentially, with oldest reviewed study dated 09/2017. BREAST PARENCHYMAL COMPOSITION: Not dense: There are scattered areas of fibroglandular density. FINDINGS: MAMMOGRAPHIC FINDINGS: There are no suspicious masses, calcifications or architectural distortion in the left breast to sugg est malignancy. ULTRASOUND: Complete US of all 4 quadrants of the left breast and retroareolar region was reviewed. At 12:00, 3 c m from the nipple, there is a 5 mm septated cyst. At 12:00, 3 cm from the nipple there is an oval hyp oechoic cystic mass measuring 6 mm, likely a cluster of microcysts. At 7:00 there is a 5 mm cyst. At 9:00, 6 cm from the nipple, there is a cluster of microcysts. IMPRESSION: 1. Probable benign findings of the left breast at 12:00, 3 cm from the nipple by ultrasound. 2. Recommend 6 month follow-up Limited left breast ultrasound BI-RADS category 3, probably benign findings. Reviewed, dictated and finalized at location A. IMPRESSION: 1. Probable benign findings of the left breast at 12:00, 3 cm from the nipple b y ultrasound. 2. Recommend 6 month follow-up Limited left breast ultrasound BI-RADS category 3, probably benign findings.
== END 2023-09-05 11:48 | disposition home or self-care (01) ==
LOC: ANHIMG 11:49
PROVIDERS: PCP Family Medicine; Visit Provider Obstetrics & Gynecology
DX: R92.8 Other abnormal and inconclusive findings on diagnostic imaging of breast (principal)
CPT/HCPCS: 76641; 77061; 77065; G0279

== ENCOUNTER 2023-11-04 10:30 | Outpatient (RCR) | payer BC, SELFPAY ==
--- NOTE | 2023-10-05 15:57 | OPREHPOC ---
Outpatient Therapy Plan of Care This is a Multidisciplinary Plan of Care that may contain components documented by all disciplines (PT, OT, and ST.) PT Problem 1 PT Problem #1 Knowledge Deficit PT Goal 1 Goal Pt will demonstrate HEPs indep Target Visit 8 PT Problem 2 PT Problem #2 Pain PT Goal 1 Goal Pt will report L hip and knee pain level to 1/10 at worst to allow patient to perform ADLs and standing tasks without discomfort Target Visit 12 PT Goal 2 Goal Pt will report R knee pain to 0/10 Target Visit 12 PT Problem 3 PT Problem #3 Impaired Strength PT Goal 1 Goal Pt will demonstrate 5/5 BLE strength Target Visit 12 PT Problem 4 PT Problem #4 Impaired Gait PT Goal 1 Goal Pt will demonstrate normalized gait pattern without compensatory movements/limping Target Visit 12
--- NOTE | 2023-10-05 16:00 | PTOPEVAL1 ---
Assessment and note entered by Tere Siegel, PT Evaluation Information Assessment Status Evaluation Diagnosis B knee pain L > R Onset approx 3 months ago Reported Pain Level Pain Score 4,3,3: Self Report Assessment PT Clinical Summary Pt presents to therapy with increased pain, limited joint play to B hip and knee L > R, weakness and gait impairments. Skilled PT necessary to address deficits and allow patient to perform IADLs without pain and discomfort. Plan of Care Interventions Gait Training,Manual Therapy,Neuro Re-education, Therapeutic Activities,Therapeutic Exercise PT Services Indicated Yes Treatment Frequency and 2x/week x 12 visits Duration These treatments will address the objective and functional deficits as defined above. The patient will be advanced safely and appropriately in order for the patient to progress towards his/her prior level of function. Additional exercises will be introduced and as well as a comprehensive home exercise program upon discharge, if needed, ?to ensure carryover of functional gains achieved in the clinic. This treatment plan has been reviewed and agreement upon by the patient.
--- NOTE | 2023-10-05 16:03 | PTOPEVAL1 ---
Assessment and note entered by Tere Siegel, PT Evaluation Information Assessment Status Evaluation Diagnosis B knee pain L > R Onset approx 3 months ago Subjective Information Pt reports feeling intense pain to B knees which started approx 3 months ago, states was unable to get up/down stairs at home; felt pain ambulating. Reports received cortisone shots recently and that has helped with the pain levels. Reports L knee feels worse than the R, has a jackson's cyst on the L. states L hip has chronic pain and she thinks it has aggravated the knee pain. Reported Pain Level Pain Score 4,3,3: Self Report Assessment PT Clinical Summary Pt presents to therapy with increased pain, limited joint play to B hip and knee L > R, weakness and gait impairments. Skilled PT necessary to address deficits and allow patient to perform IADLs without pain and discomfort. Plan of Care Interventions Gait Training,Manual Therapy,Neuro Re-education, Therapeutic Activities,Therapeutic Exercise, Education, E-stim, Modalities prn PT Services Indicated Yes Treatment Frequency and 2x/week x 12 visits Duration These treatments will address the objective and functional deficits as defined above. The patient will be advanced safely and appropriately in order for the patient to progress towards his/her prior level of function. Additional exercises will be introduced and as well as a comprehensive home exercise program upon discharge, if needed, ?to ensure carryover of functional gains achieved in the clinic. This treatment plan has been reviewed and agreement upon by the patient.
--- NOTE | 2023-10-12 10:10 | PCPTNOTE ---
Patient called & cancelled scheduled appointment this date due to being unable to make it.
--- NOTE | 2023-11-01 12:56 | PCPTNOTE ---
Pt no showed due to forgetting appt. Pt was reminded of her next visit day and time this week.
--- NOTE | 2024-01-26 10:01 | PCPTNOTE ---
Mrs. Carr attended a total of 5 treatment sessions. According to documentation during her last visit on 11/04/23 she stated that insurance was limiting her and she would be unable to return to the clinic. Refer to the last daily note for discharge status. She will be discharged from our care at this time. Thank you for the referral of this patient. Zane Mandujano, MPT
== END 2023-12-19 10:54 | disposition home or self-care (01) ==
LOC: ANHPT 10:30
PROVIDERS: PCP Family Medicine; Visit Provider Physician Assistant Surgical
DX: M17.0 Bilateral primary osteoarthritis of knee (principal)
CPT/HCPCS: 97110; 97161; 97530; 99199

== ENCOUNTER 2024-03-06 10:19 | Outpatient (CLI) | payer MEDICARE, OTHER, SELFPAY ==
--- NOTE | ~2024-03-06 | US_ITS ---
US breast LT limited 03/06/2024 11:09 Indication: Follow-up probable benign left breast masses Procedure: High-resolution Limited ultrasound of the left breast Comparison: 09/05/2023 Findings: At 12:00, 3 cm from the nipple, there is a small cluster of microcysts measuring 4-5 mm unc hanged. At 1:00, 2 cm from the nipple, there are 2 adjacent cysts, largest measuring 4 mm. At 7:00 th ere is a complicated septated 6 mm cyst. Unchanged. At 9:00, 6 cm from the nipple, there is an intram ammary lymph node. No suspicious masses to suggest malignancy. Impression: 1: Stable likely benign left breast masses. BI-RADS CATEGORY 3-PROBABLY BENIGN FINDING RECOMMENDATION: 6 month follow-up diagnostic bilateral mammogram and Limited left breast ultrasound r ecommended. Reviewed, dictated and finalized at location B. Impression: 1: Stable likely benign left breast masses. BI-RADS CATEGORY 3-PROBABLY BENIGN FINDING RECOMMENDATION: 6 month follow-up diagnostic bilateral mammogram and Limited le ft breast ultrasound recommended.
== END 2024-03-06 10:20 | disposition home or self-care (01) ==
PROVIDERS: PCP Family Medicine; Visit Provider Obstetrics & Gynecology
DX: R92.8 Other abnormal and inconclusive findings on diagnostic imaging of breast (principal)
CPT/HCPCS: 76642; 77061; 77065; G0279

== ENCOUNTER 2024-03-23 06:59 | Outpatient (CLI) | payer MEDICARE, OTHER, SELFPAY ==
--- NOTE | ~2024-03-23 | XR_ITS ---
Left Knee Technique: AP, lateral, and sunrise views were obtained. Clinical History: Osteoarthritis Findings: No fracture or dislocation is seen. Osseous alignment is anatomic. Moderate to advanced tri compartmental osteoarthritis present. Soft tissues are unremarkable. No joint effusion is seen. Impression: Moderate to advanced tricompartmental osteoarthritis. Reviewed, dictated and finalized at location . Impression: Moderate to advanced tricompartmental osteoarthritis.
--- NOTE | ~2024-03-23 | XR_ITS ---
Right Knee Technique: AP, lateral, and sunrise views were obtained. Clinical History: Osteoarthritis Findings: No fracture or dislocation is seen. Osseous alignment is anatomic. There is moderate to adv anced tricompartmental degenerative change, with extensive osteophyte formation. Probable narrowing o f the patellofemoral compartment. Soft tissues are unremarkable. No joint effusion is seen. Impression: Moderate to advanced tricompartmental degenerative change, as above. Reviewed, dictated and finalized at location M. Impression: Moderate to advanced tricompartmental degenerative change, as above.
== END 2024-03-23 07:00 | disposition home or self-care (01) ==
LOC: MICIMG 07:00
PROVIDERS: PCP Orthopaedic Surgery; Visit Provider Orthopaedic Surgery
DX: M17.0 Bilateral primary osteoarthritis of knee (principal)
CPT/HCPCS: 73564

== ENCOUNTER 2024-04-12 10:59 | Outpatient (CLI) | payer MEDICARE, OTHER, SELFPAY ==
--- NOTE | ~2024-04-12 | XR_ITS ---
AP view of the pelvis and AP and lateral views of the left hip Clinical history: Pain Findings: No acute fracture or dislocation is seen. Osseous alignment is anatomic. There is mild dege nerative change of both hip joints. Soft tissues are unremarkable. Impression: Mild degenerative change of both hip joints. Reviewed, dictated and finalized at location . H MEASURER Impression: Mild degenerative change of both hip joints.
== END 2024-04-12 11:00 | disposition home or self-care (01) ==
LOC: MICIMG 11:01
PROVIDERS: PCP Physician Assistant Surgical; Visit Provider Physician Assistant Surgical
DX: M16.0 Bilateral primary osteoarthritis of hip (principal)
CPT/HCPCS: 73502

== ENCOUNTER 2024-04-17 07:30 | Outpatient (CLI) | payer MEDICARE, OTHER, SELFPAY ==
--- NOTE | ~2024-04-17 | XR_ITS ---
EXAMINATION: XR chest 2V DATE: 04/17/2024 07:50 INDICATION: Acute upper respiratory infection. Cough. Fever. Shortness of breath. TECHNIQUE: Frontal and lateral views of the chest were obtained. COMPARISON: Chest single view 10/24/2020 FINDINGS: There is no pneumonia, pleural effusion, or pneumothorax. The heart size is normal. IMPRESSION: 1. No acute cardiopulmonary disease. Reviewed, dictated and finalized at location A. L ALLOY SCIENTIST
== END 2024-04-17 07:31 | disposition home or self-care (01) ==
PROVIDERS: PCP Nurse Practitioner Family; Visit Provider Nurse Practitioner Family
DX: J06.9 Acute upper respiratory infection, unspecified (principal)
CPT/HCPCS: 71046

== ENCOUNTER 2024-08-03 07:09 | Outpatient (CLI) | payer MEDICARE, OTHER, SELFPAY ==
[2024-08-03 08:09] LABS: Anion Gap 9 mmol/L (4-12); Blood Urea Nitrogen 14 mg/dL (7-17); Calcium 9.2 mg/dL (8.4-10.2); Carbon Dioxide 29 mmol/L (22-30); Chloride 102 mmol/L (98-107); Estimated Glomerular Filt Rate > 60; Glucose 118 mg/dL (65-110); Potassium 3.5 mmol/L (3.4-5.0); Sodium 140 mmol/L (137-145)
== END 2024-08-03 07:10 | disposition home or self-care (01) ==
PROVIDERS: PCP Nurse Practitioner Family; Visit Provider Nurse Anesthetist, Certified Registered
DX: Z01.818 Encounter for other preprocedural examination (principal); I10 Essential (primary) hypertension
CPT/HCPCS: 36415; 80048; 93005

== ENCOUNTER 2024-09-04 10:44 | Outpatient (CLI) | payer MEDICARE, OTHER, SELFPAY ==
--- NOTE | ~2024-09-04 | MMUS_ITS ---
EXAMINATION: MM diagnostic nancy BI w dominique, US breast LT limited HISTORY: Six-month follow-up exam of the left breast TECHNIQUE: 3-D tomosynthesis images of the breasts were performed and synthetic 2-D images were gener ated. CAD analysis was submitted and interpreted. High resolution limited left breast ultrasound was performed. COMPARISON: 08/04/2023, 06/14/2022, 05/01/2021, 03/06/2024 BREAST PARENCHYMAL COMPOSITION:Not Dense. There are scattered areas of fibroglandular density. FINDINGS: MAMMOGRAPHIC FINDINGS: Stable parenchymal pattern of the breast. Stable small low-density circumscribed masses in the left b reast. Stable bilateral benign calcifications. No suspicious adenopathy seen mammographically. ULTRASOUND: At the 12:00 position left breast, 3 cm nipple, there is a stable 5 mm hypoechoic structure, possibly complex cyst or cluster of microcysts. At the 1:00 position left breast, 6 cm from the nipple, there is a stable 6 mm probable cyst. At the 7:00 position left breast, 2 cm from the nipple, there is a s table 6 mm ovoid simple cyst. Dilated ducts also noted to 7:00 position left breast near the nipple, without evidence for intraductal mass. IMPRESSION: No evidence for malignancy. Stable mammographic examination. Stable benign subcentimeter lesions seen in the left breast sonographically. BI-RADS Category 2: Benign finding(s). Reviewed, dictated and finalized at [facility]. IMPRESSION: No evidence for malignancy. Stable mammographic examination. Stable benign subcentimeter lesions seen in the left breast sonographically. BI-RADS Category 2: Benign finding(s).
--- OUTSIDE RECORDS SUMMARY | 2024-09-04 11:59 | XMS_ITS ---
Author Organization [facility] Address [address] [place] [address] Care Team Providers Care Soft Sugar Supervisor Name Role Phone Jacob [employer], Rhea Primary Care Provider Valerie Joe Unavailable [phone] Zahra Brice Unavailable [phone] REASON FOR VISIT Depressed Mood, Depression screening positive Medications Medication SIG (Take, Route, Frequency, Duration) Notes Start Date End Date Status Escitalopram Oxalate 20 MG 1 tablet Oral Once a day for 90 days Active DULoxetine HCl 60 MG 1 capsule Oral Once a day for 90 days Active ALPRAZolam 0.5 MG Oral 10/24/2023 A ctive Losartan Potassium-HCTZ 100-12.5 MG Oral 10/24/2023 Active Escitalopram Oxalate 10 MG Oral 10/24/2023 Not-Taking HYDROcodone-Acetaminophen 5-325 MG Oral 10/24/2023 Not-Taking Ondansetron 4 MG Oral 10/24/2023 Ac tive Latanoprost 0.005 % Ophthalmic 10/24/2023 Active Social History Tobacco Use: Social History Observation Description Date Details (start date - stop date) Former Smoker NA - NA Sex Assigned At : Social History Observation Description Sex Assigned At Female Household Question Answer Notes Marital status: Number of adults in household: 2 Number of children in household: 1 son in home age 24 2 daughters grown Level of education: not finished college Sexual History Question Answer Notes Had sex in the past 12 months (vaginal, oral, or anal)? Yes with Men only Tobacco Control (Standard) Question Answer Notes Tobacco use: Former smoker Additional Findings: Tobacco non-user Current no nsmoker AUDIT-C (Standard) Question Answer Notes Did you have a drink contain ing alcohol in the past year? Yes How often did you have six o r more drinks on one occasion in the past year? Never (0 point) How many drinks did you have on a typical day when you were drinking in the past year? 1 or 2 drinks (0 point) How often did you have a dri nk containing alcohol in the past year? Monthly or less (1 point) Points 2 Interpretation Negative Encounters Encounter Location Date Provider Diagnosis [facility] [address] [facility] [address] [place] [address] 08/02/2024 Zahra Brice Generalized anxiety disorder F41.1 and Major depressive disorder, recurrent, mild F33.0 Assessments Encounter Date Diagnosis (ICD Code) Assessment Notes Treatment Notes Treatment Clinical Notes Section Notes 08/02/2024 Generalized anxiety disorder (ICD-10 - F41.1) 08/02/2024 Major depressive disorder, recurrent, mild (ICD-10 - F33.0) Plan Of Treatment Next Appt Details Follow Up: 2 Weeks, Reason: Progress Notes * KRISTAL GARCIA LISAOB: 1960 (64 yo F)Acc No.[id number]:08/02/2024 Patient: KRISTAL TAM ALIE Provider: Ty BRICE LCSW :1960 A ge:64 Y S ex:Female Date:08/02/2024 Address:[address] [place], [place] [id number] Pcp:Rhea James MD Data: * Time Tracker: * Date Start Time End Time Duration User Type Captured By Mode Notes 08/02/2024 01:07 PM 02:07 PM 00:59:39 Therapist Zahra Brice * Chief Complaints: * 1 . Depressed Mood. 2. Depression screening positive. * HPI: D epression Screening: BJ-7 (2018 Edition) F eeling nervous, anxious, or on edge S everal days N ot being able to stop or control worrying?Several days W orrying too much about different things S everal days T rouble relaxing S everal days B eing so restless that it is hard to sit still S everal days B ecoming easily annoyed or irritable N early every day F eeling afraid as if something awful might happen S ever T otal BJ-7 Score 9 I f you checked any problems, how difficult have they made it for you to do your work, take care of things at home, or get along with other people? S omewhat difficult I nterpretation of Total ( 5 to 9) Mild [place]-Suicide Severity Rating Scale: Suicide Risk (CSRS-screener) i n the past one month Have you wished you were or wished you could go to sleep and not wake up? N o i n the past one month Have you actually had any thoughts of killing yourself? N o D epression screening: PHQ-9 L ittle interest or pleasure in doing things?Several days F eeling down, depressed, or hopeless S T rouble falling or staying asleep, or sleeping too much N ot at all F eeling tired or having little energy S P oor appetite or overeating S F eeling bad about yourself or that you are a failure, or have let yourself or your family down S T rouble concentrating on things, such as reading the newspaper or watching television S M oving or speaking so slowly that other people could have noticed; or the opposite, being so fidgety or restless that you have been moving around a lot more than usual N ot at all T houghts that you would be better off or of hurting yourself in some way N ot at all T otal Score 6 I nterpretation M ild Depression Intervention D epression Screening Findings P ositve F ollow-Up for Depression M ental health treatment assessment, Patient follow-up to return when and if necessary S uicide Risk Assessment Performed 0 08/02/2024 A dditional Evaluation for Depression P sychiatric interview and evaluation N urvashi of the standardized tool used for adult depression screening: P atient Health Questionnaire (PHQ-9) P ast Psychiatric Hospitalizations: Previous psychiatric hospitalizations P revious Psychiatric Hospitalization N o Past History of Suicidal attempt H ave you ever attempted suicide in the past?No P sychotherapy Information: 02 August 2024: Family Medical stressors: is getting ready to undergo treatment for prostate cancer. Medical stressors: Cl. recently dx pre-diabetes. Having sinus surgery next week. IBS-D (possibly stress related)- which limits enjoyment of going places. Will be seeing Ortho to address hip/knee pain. It appears that some of these medical stressors may be causing or at least exacerbating symptoms of depression Family system stressors: Cl.'s daughter recently moved back home- filing for divorce. Ex BERNADETTE turned out to be mean after the one year and moved to [place]. Roro hartman had recently lost her job- lives in [place]. Son (25) lives at home- autism spectrum. Occupational: Retired- used to work at [employer]- retired 25 years. Anxiety: Family history of anxiety Depressed mood: so depressed - just don't care tired Present for awhile. Depression starting around the time and trey griffiths had to move to [place] for 's job. Had made some friends but all but two have moved away. is a home-body - we don't go anywhere so nothing to talk about. Prescribed duloxetine- not working yet. Cl. 's friends live in the [place] area and Cl. would rather move back to [place]- feeling isolated in [place] and not much to do, which has precipitated depression Has not tried therapy yet. Started walking again since the weather has improved which had been helpful in the past. Rosendo healy depressive disorder: Depression started y ears ago, and presented as, feeling sad and blue, loss of interest and pleasure in most activities, Severity: moderate to severe. Associated physical symptoms include a nxiety and restlessness, low energy level. Additional symptoms include n egativistic thinking. G eneralized anxiety disorder: Excessive worrying w hich causes distress, which interferes with daily functioning, which is out of proportion to realistic concerns. Somatic symptoms of a bdominal pain. Concomitant symptoms of d epressed mood. * Medical History: Anotny amador: Cannabis dependence, Chronic pain, Generalized anxiety disorder, Major depressive disorder, Mild recurrent major depression, Sleep apnea, ,, Past Psychiatric History: Anxiety Disorder, abdominal aortic aneurysm: No, atrial fibrillation: No, chronic fatigue syndrome: No, essential tremor: No, hypertension: No, Parkinson's disease: No, restless leg syndrome: No, stroke: No, subdural hematoma: No, type 1 diabetes mellitus: No, type 2 diabetes mellitus: No, vitamin B12 deficiency: No, vitamin D deficiency: No. * Surgical History: R emoval of gallbladder (33184) , Hysterectomy (31681) , rt foot x3 , bilateral shoulder . * Family History: F ather: None. M aternal Aunt: None. M aternal Uncle: None. P aternal Aunt: None.?Mother: Anxiety Disorder. P aternal Grandfather: None. P aternal Grandmother: None. Maternal Grandfather: None. M aternal Grandmother: None. B rother: None, diagnosed with Heart disease. S ister: Anxiety Disorder. S on: Major Depressive Episode. D aughter: Anxiety Disorder. 4 brother(s) , 2 sister(s) . 1 son(s) , 2 daughter(s) - healthy. . 3 brothers - heart conditions mother - cancer lung, smoker dad- ETOH- cirrohosis. * Social History: T obacco Use: T obacco Control (Standard) T obacco use: F ormer smoker A dditional Findings: Tobacco non-user C urrent nonsmoker M igrated Social History: M igrated Social History: Alcohol Intake: Occasional 10/24/2023,Tobacco Years: Former smoker 09/27/2023. S exual History: S exual History H ad sex in the past 12 months (vaginal, oral, or anal)? Y es w ith M en only D rug/Alcohol: D rugs H ave you used drugs other than those for medical reasons in the past 12 months? Y es Caffeine I ntake: 3 -4 cups per day AUDIT-C (Standard) D id you have a drink containing alcohol in the past year? Y es H ow often did you have six or more drinks on one occasion in the past year? N ever (0 point) H ow many drinks did you have on a typical day when you were drinking in the past year? 1 or 2 drinks (0 point) H ow often did you have a drink containing alcohol in the past year? M onthly or less (1 point) P oints 2 I nterpretation N egative H ousehold: H ousehold M arital status: m arried N umber of adults in household: 2 N umber of children in household: 1 son in home age 242 daughters grown N umber of siblings: 5 2 siblings alive L evel of education: n ot finished college A ny household tobacco use? N o A il household pets? Y es dog M iscellaneous: S afety issues A re there any firearms in the house? N o Advance Care Planning A re you your own decision-maker Y es D o you have Power of Residential Program Director for Health or Medical? Y es D o you have a power of workers compensation attorney for health??Yes D o you have power of workers compensation attorney for Medical ??Yes S ocial History: H torojasen Robbins arital Status: M arried N umber of Adults in household: 4 L evel of Education: N ot Finished College * Medications: T aking DULoxetine HCl 60 MG Capsule Delayed Release Particles 1 capsule Oral Once a day , Taking Escitalopram Oxalate 20 MG Tablet 1 tablet Oral Once a day , Taking Losartan Potassium-HCTZ 100-12.5 MG Tablet Oral , Taking ALPRAZolam 0.5 MG Tablet Oral , Taking Latanoprost 0.005 % Solution Ophthalmic , Taking Ondansetron 4 MG Tablet Disintegrating Oral , Not-Taking HYDROcodone-Acetaminophen 5-325 MG Tablet Oral , Not-Taking Escitalopram Oxalate 10 MG Tablet Oral , Medication List reviewed and reconciled with the patient * Vitals: * Examination: P sychiatry: Appearance: w ell-groomed. Affect / mood: a ppropriate. Attention: n ormal in conversation. Attitude: c ooperative. Homicidal ideation: n one. Suicidal ideation: n one. Insight: g ood. Intellectual functioning: a karlos average. Orientation: a wake, alert and oriented x 3. Speech / language: a ppropriate pitch/modulation, clear and coherent, normal rate, volume, and articulation (RVR), proper grammar used. Thought content: a ppropriate. Thought process: i ntact. Assessment: * Assessment: 1. G eneralized anxiety disorder - F41.1 (Primary) 2 . M ajor depressive disorder, recurrent, mild - F33.0 Plan: * Treatment: * Procedure Codes: 9 0791 PSYCHIATRIC DIAGNOSTIC EVALUATION, G8431 CLIN DEPRESSION SCREEN DOC, 1036F TOBACCO NON-USER * Follow Up: 2 Weeks * Billing Information: * Visit Code: * Procedure Codes: 12853 PSYCHIATRIC DIAGNOSTIC EVALUATION. G8431 CLIN DEPRESSION SCREEN DOC. 1036F TOBACCO NON-USER. * GUIDER Sign off status: Completed Signatures: No Ad Hoc Signature Added true * Provider: Ty BRICE LCSW Date: 0 08/02/2024 Generated for Lissette winston/Kaushik/Shweta on: 0 09/04/2024 11:58 AM CDT History and Physical Notes * HPI (History of Present Illness) Category Sub-Category Detail Notes Category Not es Major depressive disorder Associated physical symptoms include anxiety and restlessness, low energy level Additional symptoms include negativistic thinking Depression started years ago, and prese nted as, feeling sad and blue, loss of interest and pleasure in most activities, Severity: moderate to severe Generalized anxiety disorder Somatic symptoms of abdom inal pain Excessive worrying which causes distres s, which interferes with daily functioning, which is out of proportion to realistic concerns Concomitant symptoms of depressed mood Past Psychiatric Hospitalizations Previous psychiatric hospitalizations Previous Psychiatric Hospitalization: No Past History of Suicidal attempt Have yo u ever attempted suicide in the past: No Depression screening PHQ-9 Little inte rest or pleasure in doing things: Several days Feeling down, depressed, or hopeless: Se veral days Trouble falling or staying asleep, or sl eeping too much: Not at all Feeling tired or having little energy: S everal days Poor appetite or overeating: Several day s Feeling bad about yourself o r that you are a failure, or have let yourself or your family down: Several days Trouble concentrating on thi ngs, such as reading the newspaper or watching television: Several days Moving or speaking so slowly that other people could have noticed; or the opposite, being so fidgety or restless that you have been moving around a lot more than usual: Not at all Thoughts that you would be b shaila off or of hurting yourself in some way: Not at all Total Score: 6 Interpretation: Mild Depression Intervention Depression Screening Findings: P ositve Follow-Up for Depression: [facility] treatment assessment, Patient follow-up to return when and if necessary Suicide Risk Assessment Performed: 08/02 Additional Evaluation for Depression: Ps ychiatric interview and evaluation Name of the standardized too l used for adult depression screening:: Patient Health Questionnaire (PHQ-9) Depression Screening BJ-7 (2018 Edition) Feelin g nervous, anxious, or on edge: Several days Not being able to stop or control worryi ng: Several days Worrying too much about different things : Several days Trouble relaxing: Several days Being so restless that it is hard to sit still: Several days Becoming easily annoyed or irritable: Ne angelica every day Feeling afraid as if something awful jamil ht happen: Several days Total BJ-7 Score: 9 If you checked any problems, how difficult have they made it for you to do your work, take care of things at home, or get along with other people?: Somewhat difficult Interpretation of Total: (5 to 9) Mild Psychotherapy Information 02 August 2024: Family Medical stressors: is getting ready to undergo treatment for prostate cancer. Medical stressors: Cl. recently dx pre-diabetes. Having sinus surgery next week. IBS-D (possibly stress related)- which limits enjoyment of going places. Will be seeing Ortho to address hip/knee pain. It appears that some of these medical stressors may be causing or at least exacerbating symptoms of depression Family system stressors: Cesar.'s daughter recently moved back home- filing for divorce. Ex BERNADETTE turned out to be mean after the one year and moved to [place]. Daughter had recently lost her job- lives in [place]. Son (25) lives at home- autism spectrum. Occupational: Retired- used to work at [employer]- retired 25 years. Anxiety: Family history of anxiety Depressed mood: so depressed - just don't care tired Present for awhile. Depression starting around the time Cl. and trey griffiths had to move to [place] for 's job. Had made some friends but all but two have moved away. is a home-body - we don't go anywhere so nothing to talk about. Prescribed duloxetine- not working yet. Cl. 's friends live in the [place] area and Cl. would rather move back to [place]- feeling isolated in [place] and not much to do, which has precipitated depression Has not tried therapy yet. Started walking again since the weather has improved which had been helpful in the past [place]-Suicide Severity Rating Scale Suicide Risk (CSRS-screener) in the past one month Have you wished you were or wished you could go to sleep and not wake up?: No in the past one month Have y ou actually had any thoughts of killing yourself?: No Examination Category Sub-Category Detail Notes Category Not es Psychiatry Appearance: well-groomed Attitude: cooperative Attention: normal in conversati on Orientation: awake, alert and mayo ented x 3 Affect / mood: appropriate Speech / language: appropriate pitch/mo dulation, clear and coherent, normal rate, volume, and articulation (RVR), proper grammar used Insight: good Thought process: intact Thought content: appropriate Suicidal ideation: none Homicidal ideation: none Intellectual functioning: above average
--- OUTSIDE RECORDS SUMMARY | 2024-09-04 11:59 | XMS_ITS | Clinical Summary ---
Author Organization [facility] Address [address] [place] [address] Care Team Providers Care Special Education Inclusion Teacher Name Role Phone Kimberly Stiles Ty [employer] Primary Care Provider + Source Comments [facility],non-owned Affiliates and Associated Physician Practices is amultiple site organization consisting of ambulatory clinics and hospital sitesin [place], [place], [place] and [place]. This disclosure is being madepursuant to the Care Everywhere program and may not contain all information available regarding this patient. Last updated 18.[facility] Allergies Active Allergy Reactions Criticality Noted Date Comments Naproxen Other Low 12/19/2017 CANT TAKE NSAIDS DUE TO IBSD Medications * Be aware that medications may not be up to date on this document. Alwaysverify current medications with the patient. Medication Sig Dispensed Refills Start Date End Date Status escitalopram (Lexapro) 20 MG tablet Take 1 (one) tablet by mouth once daily 10/24/2023 Active DULoxetine (Cymbalta) 60 MG capsule Take 1 (one) capsule by mouth once daily Active latanoprost (Xalatan) 0.005 % ophthalmic solution INSTILL 1 DROP INTO EACH EYE IN THE EVENING Active losartan-hydroCHLOROt hiazide (Hyzaar) 100-25 MG tablet Take 1 (one) tablet by mouth once daily Active Xigduo XR 10-1000 MG tablet Take 1 (one) tablet by mouth daily with food Do not crush or chew. KEV-1 90 tablet 1 05/22/2024 Active Encounters Date Type Department Care Team Description 07/26/2024 Telephone [facility] - Endocrinology [address] [place] [address] Niya Dominguez CPhT Patient Assistance Program 06/26/2024 Telephone [facility] - Endocrinology [address] [facility] [address] [place] [phone] Niya Dominguez CPhT Medication Prior Auth Request from Last 3 Months Social History Tobacco Use Types Packs/Day Years Used Date Smoking Tobacco: Never Assessed Sex and Gender Information Value Date Recorded Sex Assigned at Not on file Gender Identity Not on file Sexual Orientation Not on file Last Filed Vital Signs Vital Sign Reading Time Taken Comments Blood Pressure 126/76 05/04/2024 9:21 AM [employer] Pulse 96 05/04/2024 9:21 AM [employer] Temperature - - Respiratory Rate - - Oxygen Saturation 96% 05/04/2024 9:21 AM [employer] Inhaled Oxygen Concentration - - Weight 83.3 kg (183 lb 11.2 oz) 11:00 AM [employer] Standing Height 158.8 cm (5' 2.5 ) 05/22/2024 11 :00 AM [employer]ENS[employer] Body Mass Index 33.06 05/22/2024 11:00 AM [employer] Plan of Treatment Upcoming Encounters Date Type Department Care Team (Late st Contact Info) Description 11/02/2024 9:30 AM CDT Office Visit [facility] - Endocrinology [address] [place] [phone] Jose Ovalles MD [address] [place] [address] Health Maintenance Due Date Last Done Comments BONE DENSITY TESTING 1960 COLOGUARD (AGES 45-75) - COLON CA SCREENING 1960 COLON MONITORING 1960 COLONOSCOPY - COLON CA SCREENING 1960 CT COLONOGRAPHY - COLON CA SCREENING 1960 Colorectal Cancer Screening 1960 FIT - COLON CA SCREENING 1960 FLEX SIG - COLON CA SCREENING 1960 LIPID TESTING 1960 MAMMOGRAM 1960 MEDICARE AWV 12 MONTHS 1960 HEPATITIS C SCREENING 03/09/1976 DTAP/TDAP/TD VACCINES (1 - Tdap) 1977 PNEUMOCOCCAL VACCINE 50+ (1 of 2 - PCV) 1977 ZOSTER VACCINE (1 of 2) 2008 COVID-19 VACCINE (1 - 2023- season) 2024 INFLUENZA VACCINE (#1) 2024 4, 03/03/2022, 02/12/2021, Additional history exists DEPRESSION SCREENING 06/06/2024 SCREENING FOR DIABETES 05/04/2027 , 05/04/2024, 05/04/2024 Respiratory Syncytial Virus (RSV) Vaccine Pt: or over 60 yrs (1 - 1-dose 75+ series) 2033 HEPATITIS B VACCINE Aged Out No longe r eligible based on patient's age to complete this topic HIB VACCINE Aged Out No longer eligi ble based on patient's age to complete this topic HPV VACCINE Aged Out No longer eligi ble based on patient's age to complete this topic MENINGOCOCCAL (Group B) VACCINE SHARED DECISION-MAKING Aged Out No longer eligible based on patient's age to complete this topic MENINGOCOCCAL GROUPS A/C/Y/W VACCINE Aged Out No longer eligible based on patient's age to complete this topic Procedures Procedure Name Priority Date/Time Associated Diagnosis Comments HEMOGLOBIN A1C - POINT OF CARE (AMB) Routine 05/04/2024 9:48 AM [employer] Type 2 diabetes mellitus without complication, without long-term current use of insulin from Last 3 Months or Most Recently Relevant to Health Maintenance Results * HEMOGLOBIN A1C - POINT OF CARE (AMB) (05/04/2024 9:48 AM [employer]) Hemoglobin A1c POCT 5.9 % Expiration Date 01/25 Lot # [id number] QC Verified Yes Yes Blood BLOOD SPECIMEN / Unknown 05/04/2024 9:48 AM [employer] Jose Ovalles MD LAB - POINT OF CARE ORDERABLES from Last 3 Months or Most Recently Relevant to Health Maintenance Care Teams Special Education Inclusion Teacher Relationship Specialty Start Date End Date Kimberly Stiles, FITNESS AND WELLNESS MANAGER-[employer] [address] [place] [phone] PCP - General Family Medicine 05/04/24
--- OUTSIDE RECORDS SUMMARY | 2024-09-04 11:59 | XMS_ITS | Clinical Summary ---
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 Active citalopram (CELEXA) 20 mg Oral tabletIndicatio ns:Abnormal mammogram Take 20 mg by mouth daily at bedtime. Active ALPRAZolam (XANAX) 0.25 mg Oral tabletIndicatio ns:Abnormal mammogram Take 0.25 mg by mouth nightly as needed. Active Active Problems Patient Care Coordination No te Formatting of this note migh t be different from the original. Primary Care: Zane Soriano MD Referring Provider: Esme White MD [address] [address] [address] [place] [address] Other: Problem Noted Date Diagnosed Date Abnormal mammogram 05/01/2012 HTN (hypertension) Family History Medical History Relation Name Comments Lung Cancer Mother Relation Name Status Comments Mother Social History Tobacco Use Types Packs/Day Years Used Date Smoking Tobacco: Former Smokeless Tobacco: Never Alcohol Use Standard Drinks/Week Comments Yes 0 (1 standard drink = 0.6 oz pur e alcohol) moderate Comments No Sex and Gender Information Value Date Recorded Sex Assigned at Not on file Legal Sex Female 4:40 AM HIGH WIRE [employer]IST Gender Identity Not on file Sexual Orientation Not on file Last Filed Vital Signs Vital Sign Reading Time Taken Comments Blood Pressure 139/82 05/01/2012 1:55 PM H[employer]IST Pulse - - Temperature - - Respiratory Rate - - Oxygen Saturation - - Inhaled Oxygen Concentration - - Weight 83.5 kg (184 lb) 05/01/2012 1:55 PM H[employer] W[employer] ARTIST Height 158.8 cm (5' 2.5 ) 05/01/2012 1:55 PM CS T Body Mass Index 33.12 05/01/2012 1:55 PM H[employer] W[employer] ARTIST Plan of Treatment Health Maintenance Due Date Last Done Comments DTAP/TDAP/TD VACCINES (1 - Tdap) 1977 COLORECTAL SCREENING 2003 Colorectal Cancer Screening 2003 FIT-DNA Q 3 years 2003 FIT/FOBT Q 1 year 2003 Flex Sig/CT Colonography Q 5 years 2003 PNEUMOCOCCAL VACCINE 50+ YEA RS (1 of 1 - PCV) 2008 ZOSTER VACCINE (1 of 2) 2008 BREAST CANCER SCREENING 05/01/2013 05/01/20 12, 04/19/2012, 04/12/2012, Additional history exists OSTEOPOROSIS SCREENING 2023 INFLUENZA VACCINE (#1) 2024 RSV VACCINE (60+ or ) (1 - 1-dose 75+ series) 2033 Procedures Procedure Name Priority Date/Time Associated Diagnosis Comments MAMMO DIAGNOSTIC UNI LEFT W OR WO CAD Routine 05/01/2012 3:58 PM H[employer]IST Abnormal mammogram from Last 3 Months or Most Recently Relevant to Health Maintenance Results * MAMMO DIGITAL DIAG UNI LEFT (05/01/2012 3:58 PM HIGH W[employer] ARTIST) Anatomical Region Laterality Modality Breast Left Mammography 05/01/2012 3:58 PM H[employer] W[employer] ARTIST Impressions 05/02/2012 8:41 AM HIGH WIRE ARTIST IMPRESSION: Technically successful ultrasound-guided core biopsy with tissue marker placement. Narrative 05/02/2012 8:41 AM HIGH WIRE ARTIST LEFT BREAST ULTRASOUND. 05/01/12 HISTORY: Patient has a left breast mass at the 10:00 position of the left breast as well as at the 1:00 position of the left breast. An ultrasound-guided core biopsy of the mass at the 1:00 position has been requested. Technique: Ultrasound of the left breast was performed. This demonstrates a 9 x 4 mm cluster of cysts in the upper-outer quadrant of the left breast. This is at the 1:00 position. An ultrasound-guided core biopsy of this has been suggested at the outside institution. This will be performed today. Scanning over the upper-inner quadrant of the left breast was performed. This demonstrates no suspicious solid masses. In retrospect, it is realized that no images were obtained, but I personally scanned this patient. OVERALL ASSESSMENT: BI-RADS category 4a: suspicious findings, low suspicion. Recommendation: It is recommended patient have an ultrasound-guided core biopsy of the mass at the 1:00 position of the left breast. This was recommended by an outside institution and will be performed today. ULTRASOUND-GUIDED CORE BIOPSY OF THE LEFT BREAST, TISSUE MARKER CLIP PLACEMENT, UNILATERAL DIGITAL MAMMOGRAM DATE: 05/01/12 HISTORY: Mass at the 1:00 position of the left breast. An ultrasound-guided core biopsy has been recommended PROCEDURE AND FINDINGS: The risks and potential benefits of the procedure were discussed with the patient and written informed was obtained. After sterile preparation of the skin, 1% lidocaine was utilized for local anesthesia. A 10 gauge vacuum-assisted core biopsy needle was advanced through the lesion of interest using sonographic guidance. A total of 1 tissue core was obtained throughout the lesion. A tissue marker clip was then placed at the biopsy site under ultrasound guidance. Hemostasis was achieved. A sterile bandage and an ice pack were applied. A two-view left unilateral digital mammogram was obtained post procedure and this demonstrates that the tissue marker clip is in the expected position. The patient tolerated the procedure well and there was no evidence of immediate complication. The patient was given verbal as well as written postprocedure instructions prior to the release from the department. The tissue cores were submitted to surgical pathology in formalin for histological analysis. Procedure Note Chanda Richter - 05/02/2012 LEFT BREAST ULTRASOUND. 05/01/12 HISTORY: Patient has a left breast mass at the 10:00 position of the left breast as well as at the 1:00 position of the left breast. An ultrasound-guided core biopsy of the mass at the 1:00 position has been requested. Technique: Ultrasound of the left breast was performed. This demonstrates a 9 x 4 mm cluster of cysts in the upper-outer quadrant of the left breast. This is at the 1:00 position. An ultrasound-guided core biopsy of this has been suggested at the outside institution. This will be performed today. Scanning over the upper-inner quadrant of the left breast was performed. This demonstrates no suspicious solid masses. In retrospect, it is realized that no images were obtained, but I personally scanned this patient. OVERALL ASSESSMENT: BI-RADS category 4a: suspicious findings, low suspicion. Recommendation: It is recommended patient have an ultrasound-guided core biopsy of the mass at the 1:00 position of the left breast. This was recommended by an outside institution and will be performed today. ULTRASOUND-GUIDED CORE BIOPSY OF THE LEFT BREAST, TISSUE MARKER CLIP PLACEMENT, UNILATERAL DIGITAL MAMMOGRAM DATE: 05/01/12 HISTORY: Mass at the 1:00 position of the left breast. An ultrasound-guided core biopsy has been recommended PROCEDURE AND FINDINGS: The risks and potential benefits of the procedure were discussed with the patient and written informed was obtained. After sterile preparation of the skin, 1% lidocaine was utilized for local anesthesia. A 10 gauge vacuum-assisted core biopsy needle was advanced through the lesion of interest using sonographic guidance. A total of 1 tissue core was obtained throughout the lesion. A tissue marker clip was then placed at the biopsy site under ultrasound guidance. Hemostasis was achieved. A sterile bandage and an ice pack were applied. A two-view left unilateral digital mammogram was obtained post procedure and this demonstrates that the tissue marker clip is in the expected position. The patient tolerated the procedure well and there was no evidence of immediate complication. The patient was given verbal as well as written postprocedure instructions prior to the release from the department. The tissue cores were submitted to surgical pathology in formalin for histological analysis. IMPRESSION IMPRESSION: Technically successful ultrasound-guided core biopsy with tissue marker placement. 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
--- OUTSIDE RECORDS SUMMARY | 2024-09-04 11:59 | XMS_ITS | Patient Health Record ---
Author Organization 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 Name Role Phone Jacob [employer], Rhea Primary Care Provider Valerie Joe Unavailable [phone] HemZahra talley Unavailable [phone] Migration, Provider Unavailable Unavailable Allergies No Known Allergies Results Component Value Reference Range Notes DRUG SCREEN, 14 DRUGS (DETEC TIMED), URINE Reviewed date:10/24/2023 12:00:00 AM Interpretation: Performing Lab: Notes/Report: Amphetamine negative Barbiturates negative Benzodiazipine negative Buprenorphine negative Cocaine negative MDMA/Ectasy negative Methadone negative Methamphetamine negative Morphine negative Oxycodone negative Phenocyclidine negative THC positive UDT Reviewed date:11/28/2023 08:53:38 AM Interpretation: Performing Lab: Notes/Report: THC P 0 - 50 ng/ml Cocaine N Amphetamine N Buprenorphine (BUP) N Secobarbital (Bar) N Oxazepam (BZO) P 4-tylthyuddq-2,5-jtfkzwpn-4, 3-diphenylpyrrolidine (EDDP) N Methamphetamine (MET) N Methylenedioxymethamphetamine (MDMA) N Morphine (MOP 300/AEH0746) N Methadone (MTD) N Phencyclidine (PCP) N Nortriptyline (TCA) N x N Reason For Referral No Information Medications Medication SIG (Take, Route, Frequency, Duration) Notes Start Date End Date Status HYDROcodone-Acetaminophen 5-325 MG Oral 10/24/2023 Not-Taking Ondansetron 4 MG Oral 10/24/2023 Ac tive Latanoprost 0.005 % Ophthalmic 10/24/2023 Active Escitalopram Oxalate 20 MG 1 tablet Oral Once a day for 90 days Active DULoxetine HCl 60 MG 1 capsule Oral Once a day for 90 days Active ALPRAZolam 0.5 MG Oral 10/24/2023 A ctive Losartan Potassium-HCTZ 100-12.5 MG Oral 10/24/2023 Active Escitalopram Oxalate 10 MG Oral 10/24/2023 Not-Taking Immunizations Vaccine Route Administration Date Status Comme nts Influenza, unspecified formulation Unknown 07/07/2023 A dministered Pneumococcal conjugate PCV 13 Unknown 02/24/2022 Admini stered Pneumococcal polysaccharide PPV23 Unknown 07/13/2023 Ad ministered Social History Tobacco Use: Social History Observation [...] less (1 point) Points 2 Interpretation Negative Problems Problem Type SNOMED Code ICD Code Onset Dates Problem Status W/U Status Risk Notes Problem Cannabis dependence (00693690) Cannabis dependence, uncomplicated (F12.20) 4 Active confirmed Problem Mild recurrent major depression (32001067) Major depressive disorder, recurrent, mild (F33.0) 4 Active confirmed Problem Generalized anxiety disorder (88141236) Generalized anxiety disorder (F41.1) 4 Active confirmed Problem Sleep apnea (25143924) Sleep apnea, unspecified (G47.30) 4 Active confirmed Problem [id number] On supervisor long goods jazlyn g therapy (Z79.899) Active confirmed Vital Signs Heart Rate 83 /min 07/26/2024 Respiratory Rate 18 /min 11/28/2023 Height-cm 157.48 cm 07/26/2024 Blood pressure diastolic 85 mm Hg 07/26/2024 Weight-kg 82.55 kg 07/26/2024 Height 62.00 in 07/26/2024 Blood pressure systolic 125 mm Hg 07/26/2024 Weight 182 lbs 07/26/2024 BMI 33.28 kg/m2 07/26/2024 Encounters Encounter Location Date Provider Diagnosis [facility] [id number] [facility] [address] [facility] [address] [place] [address] 10/24/2023 Valerie Theradalberto Major depressive disorder, recurrent, mild F33.0 ; Sleep apnea, unspecified G47.30 ; Cannabis dependence, uncomplicated F12.20 and Generalized anxiety disorder F41.1 [facility] [place] [id number] [address] 11/28/2023 Valerie Theradalberto Major depressive disorder, recurrent, mild F33.0 ; Generalized anxiety disorder F41.1 ; Sleep apnea, unspecified G47.30 ; Cannabis dependence, uncomplicated F12.20 and Other supervisor long goods (current) drug therapy V58.69 [facility] [id number] [facility] [address] [address] 03/16/2024 Valerie Theradalberto Major depressive disorder, recurrent, mild F33.0 ; Generalized anxiety disorder F41.1 ; Sleep apnea, unspecified G47.30 ; Cannabis dependence, uncomplicated F12.20 and On alf drug therapy Z79.899 [facility] [address] [address] 05/15/2024 Valerie Thery Major depressive disorder, recurrent, mild F33.0 ; Generalized anxiety disorder F41.1 ; Sleep apnea, unspecified G47.30 ; Cannabis dependence, uncomplicated F12.20 and On supervisor long goods drug therapy Z79.899 [facility] [address] [address] 07/26/2024 Valerie Thery Major depressive disorder, recurrent, mild F33.0 ; Generalized anxiety disorder F41.1 ; Sleep apnea, unspecified G47.30 ; Cannabis dependence, uncomplicated F12.20 and On alf drug therapy Z79.899 [facility] [address] [place] [address] 08/02/2024 Zahra Hemann Generalized anxiety disorder F41.1 and Major depressive disorder, recurrent, mild F33.0 [facility] [address] [place] [address] 09/28/2023 Provider Migration [facility], [facility] [address] [place] [address] 10/22/2023 Provider Migration [facility], [facility] [address] [place] [address] 10/23/2023 Provider Migration [facility], [facility] [address] [place] [address] 12/30/2023 Valerie Thery Major depressive disorder, recurrent, mild F33.0 [facility] [address] [place] [address] 02/10/2024 Valerie Thery Major depressive disorder, recurrent, mild F33.0 [facility] [address] [place] [address] 02/27/2024 Valerie Thery [facility], [facility] [address] [place] [address] 05/14/2024 Valerie Thery Major depressive disorder, recurrent, mild F33.0 [facility] [address] [place] [address] 07/06/2024 Valerie Thery [facility], [facility] [address] [place] [address] 07/06/2024 Valerie Thery Major depressive disorder, recurrent, mild F33.0 [facility] [address] [place] [address] 12/06/2023 Valerie Thery Major depressive disorder, recurrent, mild F33.0 [facility], [facility] [address] [place] [address] 01/30/2024 Valerie Thery Assessments Encounter Date Diagnosis (ICD Code) Assessment Notes Treatment Notes Treatment Clinical Notes Section Notes 12/06/2023 Major depressive disorder, recurrent, mild (ICD-10 - F33.0) 12/30/2023 Major depressive disorder, recurrent, mild (ICD-10 - F33.0) 02/10/2024 Major depressive disorder, recurrent, mild (ICD-10 - F33.0) 03/16/2024 Major depressive disorder, recurrent, mild (ICD-10 - F33.0) 1. Mild recurrent major depression- Lexapro 20 mg daily discuss and educated on Cymbalta help with depression and anxiety and also help with chronic pain, will increase Cymbalta 60 mg daily in am- will monitor for fatigue http_s://www.ni mh.nih.gov/heal th/topics/menta i-vvqzsx-lfohfj tions http_s://www.na mi.org/About-Me ntal-Illness/Tr eatments/Mental -Health-Medicat ions educated on all medications, benefits, side effects and risk, and educated on depression, anxiety, and mood d/o and educated on compliance of medications, metabolic and movement d/o education appointment is, continue therapy discussion with patient about course of treatment and patient instructions. education on serotonin syndrome SSRI/SNRI side effects discussed including but not limited to, gastric upset, nausea, vomiting, diarrhea and/or constipation, weight changes, sexual side effects including loss of libido, increased suicidal thoughts/behavi ors in children and young adults, and serotonin syndrome Xanax perscribed by PCP 2. Generalized anxiety disorder -Lexapro 20 mg daily Cymbalta 60 mg daily in am Medication Management and Follow-Up - Plan: - Schedule follow-up appointments every 2-3 months to monitor the patient's response to the medication regimen. - Reinforce the importance of avoiding recreational drug use due to potential neurotoxicity and interactions with prescribed medications. Xanax prescribed by PCP 3. Cannabis dependence-no control substance prescribed by JENNIFER Recommend decrease/stop cannabis use as it may be negatively impacting mood, motivation, anxiety, sleep, focus; can also contribute to development of psychosis 4. Sleep apnea-CPAP- sleep provider and PCP PCP seen for CPAP PCP sheduled and labs Discussion Notes 03/16/2024 Generalized anxiety disorder (ICD-10 - F41.1) 1. Mild recurrent major depression- Lexapro 20 mg daily discuss and educated on Cymbalta help with depression and anxiety and also help with chronic pain, will increase Cymbalta 60 mg daily in am- will monitor for fatigue http_s://www.ni .nih.gov/heal th/topics/menta h-hhrqpl-wongzx tions http_s://www.na mi.org/About-Me ntal-Illness/Tr eatments/Mental -Health-Medicat ions educated on all medications, benefits, side effects and risk, and educated on depression, anxiety, and mood d/o and educated on compliance of medications, metabolic and movement d/o education appointment is, continue therapy discussion with patient about course of treatment and patient instructions. education on serotonin syndrome SSRI/SNRI side effects discussed including but not limited to, gastric upset, nausea, vomiting, diarrhea and/or constipation, weight changes, sexual side effects including loss of libido, increased suicidal thoughts/behavi ors in children and young adults, and serotonin syndrome Xanax perscribed by PCP 2. Generalized anxiety disorder -Lexapro 20 mg daily Cymbalta 60 mg daily in am Medication Management and Follow-Up - Plan: - Schedule follow-up appointments every 2-3 months to monitor the patient's response to the medication regimen. - Reinforce the importance of avoiding recreational drug use due to potential neurotoxicity and interactions with prescribed medications. Xanax prescribed by PCP 3. Cannabis dependence-no control substance prescribed by JENNIFER Recommend decrease/stop cannabis use as it may be negatively impacting mood, motivation, anxiety, sleep, focus; can also contribute to development of psychosis 4. Sleep apnea-CPAP- sleep provider and PCP PCP seen for CPAP PCP sheduled and labs Discussion Notes 10/24/2023 Cannabis dependence, uncomplicated (ICD-10 - F12.20) 10/24/2023 Major depressive disorder, recurrent, mild (ICD-10 - F33.0) 10/24/2023 Generalized anxiety disorder (ICD-10 - F41.1) 10/24/2023 Sleep apnea, unspecified (ICD-10 - G47.30) 11/28/2023 Major depressive disorder, recurrent, mild (ICD-10 - F33.0) 1. Mild recurrent major depression- Lexapro 20 mg daily discuss and educated on Cymbalta help with depression and anxiety and also help with chronic pain, Cymbalta 60 mg daily in am- will monitor for fatigue http_s://www.ni mh.nih.gov/heal th/topics/menta i-pmbmid-zjyyrd tions http_s://www.na mi.org/About-Me ntal-Illness/Tr eatments/Mental -Health-Medicat ions educated on all medications, benefits, side effects and risk, and educated on depression, anxiety, and mood d/o and educated on compliance of medications, metabolic and movement d/o education appointment is, continue therapy discussion with patient about course of treatment and patient instructions. education on serotonin syndrome SSRI/SNRI side effects discussed including but not limited to, gastric upset, nausea, vomiting, diarrhea and/or constipation, weight changes, sexual side effects including loss of libido, increased suicidal thoughts/behavi ors in children and young adults, and serotonin syndrome Reviewed records and labs PCP from refer note 09/27/23 F33.0: Major depressive disorder, recurrent, mild Xanax perscribed by PCP duloxetine 60 mg capsule,delayed release - Take 1 capsule(s) every day by oral route in the morning for 30 days. Qty: (30) capsule Refills: 0 Pharmacy: [facility] escitalopram 20 mg tablet - Take 1 tablet(s) every day by oral route in the morning for 90 days. Qty: (90) tablet Refills: 0 Pharmacy: [facility] 2. Generalized anxiety disorder -Lexapro 20 mg daily Cymbalta Medication Management and Follow-Up - Plan: - Schedule follow-up appointments every 2-3 months to monitor the patient's response to the medication regimen. - Reinforce the importance of avoiding recreational drug use due to potential neurotoxicity and interactions with prescribed medications. F41.1: Generalized anxiety disorder Xanax prescribed by PCP 3. Cannabis dependence-no control substance prescribed by JENNIFER Recommend decrease/stop cannabis use as it may be negatively impacting mood, motivation, anxiety, sleep, focus; can also contribute to development of psychosis F12.20: Cannabis dependence, uncomplicated DRUG SCREEN, 14 DRUGS (DETECTIMED), URINE today Positive THC and benzo 4. Sleep apnea-CPAP- sleep provider and PCP G47.30: Sleep apnea, unspecified PCP seen for CPAP PCP labs completed DRUG SCREEN, 14 DRUGS (DETECTIMED), URINEResults: - THC: positive- Result Note: + THC Discussion Notes Reviewed records and labs PCP from refer note 09/27/23 11/28/2023 Generalized anxiety disorder (ICD-10 - F41.1) 1. Mild recurrent major depression- Lexapro 20 mg daily discuss and educated on Cymbalta help with depression and anxiety and also help with chronic pain, Cymbalta 60 mg daily in am- will monitor for fatigue http_s://www.ni .nih.gov/heal th/topics/menta m-jcdfbp-aplclc tions http_s://www.na mi.org/About-Me ntal-Illness/Tr eatments/Mental -Health-Medicat ions educated on all medications, benefits, side effects and risk, and educated on depression, anxiety, and mood d/o and educated on compliance of medications, metabolic and movement d/o education appointment is, continue therapy discussion with patient about course of treatment and patient instructions. education on serotonin syndrome SSRI/SNRI side effects discussed including but not limited to, gastric upset, nausea, vomiting, diarrhea and/or constipation, weight changes, sexual side effects including loss of libido, increased suicidal thoughts/behavi ors in children and young adults, and serotonin syndrome Reviewed records and labs PCP from refer note 09/27/23 F33.0: Major depressive disorder, recurrent, mild Xanax perscribed by PCP duloxetine 60 mg capsule,delayed release - Take 1 capsule(s) every day by oral route in the morning for 30 days. Qty: (30) capsule Refills: 0 Pharmacy: [facility] escitalopram 20 mg tablet - Take 1 tablet(s) every day by oral route in the morning for 90 days. Qty: (90) tablet Refills: 0 Pharmacy: [facility] 2. Generalized anxiety disorder -Lexapro 20 mg daily Cymbalta Medication Management and Follow-Up - Plan: - Schedule follow-up appointments every 2-3 months to monitor the patient's response to the medication regimen. - Reinforce the importance of avoiding recreational drug use due to potential neurotoxicity and interactions with prescribed medications. F41.1: Generalized anxiety disorder Xanax prescribed by PCP 3. Cannabis dependence-no control substance prescribed by JENNIFER Recommend decrease/stop cannabis use as it may be negatively impacting mood, motivation, anxiety, sleep, focus; can also contribute to development of psychosis F12.20: Cannabis dependence, uncomplicated DRUG SCREEN, 14 DRUGS (DETECTIMED), URINE today Positive THC and benzo 4. Sleep apnea-CPAP- sleep provider and PCP G47.30: Sleep apnea, unspecified PCP seen for CPAP PCP labs completed DRUG SCREEN, 14 DRUGS (DETECTIMED), URINEResults: - THC: positive- Result Note: + THC Discussion Notes Reviewed records and labs PCP from refer note 09/27/23 05/15/2024 Major depressive disorder, recurrent, mild (ICD-10 - F33.0) 1. major depression- Lexapro 20 mg daily discuss and educated on Cymbalta help with depression and anxiety and also help with chronic pain, Cymbalta 60 mg daily in am- will monitor for fatigue refer to therapy http_s://www.ni .nih.gov/heal th/topics/menta j-xytwmm-tiofte tions http_s://www.na mi.org/About-Me ntal-Illness/Tr eatments/Mental -Health-Medicat ions educated on all medications, benefits, side effects and risk, and educated on depression, anxiety, and mood d/o and educated on compliance of medications, metabolic and movement d/o education appointment is, continue therapy discussion with patient about course of treatment and patient instructions. education on serotonin syndrome SSRI/SNRI side effects discussed including but not limited to, gastric upset, nausea, vomiting, diarrhea and/or constipation, weight changes, sexual side effects including loss of libido, increased suicidal thoughts/behavi ors in children and young adults, and serotonin syndrome Xanax perscribed by PCP 2. Generalized anxiety disorder -Lexapro 20 mg daily Cymbalta 60 mg daily in am Medication Management and Follow-Up - Plan: - Schedule follow-up appointments every 2-3 months to monitor the patient's response to the medication regimen. - Reinforce the importance of avoiding recreational drug use due to potential neurotoxicity and interactions with prescribed medications. Xanax prescribed by PCP 3. Cannabis dependence-no control substance prescribed by JENNIFER Recommend decrease/stop cannabis use as it may be negatively impacting mood, motivation, anxiety, sleep, focus; can also contribute to development of psychosis 4. Sleep apnea-CPAP- sleep provider and PCP PCP seen for CPAP PCP sheduled and labs Discussion Notes 05/14/2024 Major depressive disorder, recurrent, mild (ICD-10 - F33.0) 07/06/2024 Major depressive disorder, recurrent, mild (ICD-10 - F33.0) 07/26/2024 Major depressive disorder, recurrent, mild (ICD-10 - F33.0) 1. major depression- Lexapro 20 mg daily discuss and educated on Cymbalta help with depression and anxiety and also help with chronic pain, Cymbalta 60 mg daily in am- Therapy scheduled JENNIFER refer to therapy http_s://www.[facility].nih.gov/heal th/topics/menta f-ezarra-rblugv tions http_s://www.na mi.org/About-Me ntal-Illness/Tr eatments/Mental -Health-Medicat ions educated on all medications, benefits, side effects and risk, and educated on depression, anxiety, and mood d/o and educated on compliance of medications, metabolic and movement d/o education appointment is, continue therapy discussion with patient about course of treatment and patient instructions. education on serotonin syndrome SSRI/SNRI side effects discussed including but not limited to, gastric upset, nausea, vomiting, diarrhea and/or constipation, weight changes, sexual side effects including loss of libido, increased suicidal thoughts/behavi ors in children and young adults, and serotonin syndrome Xanax perscribed by PCP 2. Generalized anxiety disorder -Lexapro 20 mg daily Cymbalta 60 mg daily in am Medication Management and Follow-Up - Plan: - Schedule follow-up appointments every 2-3 months to monitor the patient's response to the medication regimen. - Reinforce the importance of avoiding recreational drug use due to potential neurotoxicity and interactions with prescribed medications. NO CONTROL SUBSTANCE PRESCRIBED BY JENNIFER R/T CANNABIS USE Xanax prescribed by PCP 3. Cannabis dependence-no control substance prescribed by JENNIFER Recommend decrease/stop cannabis use as it may be negatively impacting mood, motivation, anxiety, sleep, focus; can also contribute to development of psychosis Recommend decrease/stop cannabis use as it can negatively impact mood, motivation, anxiety, sleep, focus/concentra tion/memory (vigilance, elasticity, processing and attention); can also contribute to development of psychosis. Cannabis/mariju carolee information: http_s://[place].n ih.gov/publicat ions/drugfacts/ cannabis-mariju carolee http_s://www.[employer].Picturelife/c xhqhjrw-clx-ekx order-marijuana -adhd/ 4. Sleep apnea-CPAP- sleep provider and PCP PCP seen for CPAP PCP sheduled and labs Discussion Notes therapy scheduled JENNIFER- 08/02/2024 Generalized anxiety disorder (ICD-10 - F41.1) 08/02/2024 Major depressive disorder, recurrent, mild (ICD-10 - F33.0) 07/26/2024 Generalized anxiety disorder (ICD-10 - F41.1) 1. major depression- Lexapro 20 mg daily discuss and educated on Cymbalta help with depression and anxiety and also help with chronic pain, Cymbalta 60 mg daily in am- Therapy scheduled JENNIFER refer to therapy http_s://www.ni .nih.gov/heal th/topics/menta b-dfohum-ofuofs tions http_s://www.na mi.org/About-Me ntal-Illness/Tr eatments/Mental -Health-Medicat ions educated on all medications, benefits, side effects and risk, and educated on depression, anxiety, and mood d/o and educated on compliance of medications, metabolic and movement d/o education appointment is, continue therapy discussion with patient about course of treatment and patient instructions. education on serotonin syndrome SSRI/SNRI side effects discussed including but not limited to, gastric upset, nausea, vomiting, diarrhea and/or constipation, weight changes, sexual side effects including loss of libido, increased suicidal thoughts/behavi ors in children and young adults, and serotonin syndrome Xanax perscribed by PCP 2. Generalized anxiety disorder -Lexapro 20 mg daily Cymbalta 60 mg daily in am Medication Management and Follow-Up - Plan: - Schedule follow-up appointments every 2-3 months to monitor the patient's response to the medication regimen. - Reinforce the importance of avoiding recreational drug use due to potential neurotoxicity and interactions with prescribed medications. NO CONTROL SUBSTANCE PRESCRIBED BY JENNIFER R/T CANNABIS USE Xanax prescribed by PCP 3. Cannabis dependence-no control substance prescribed by JENNIFER Recommend decrease/stop cannabis use as it may be negatively impacting mood, motivation, anxiety, sleep, focus; can also contribute to development of psychosis Recommend decrease/stop cannabis use as it can negatively impact mood, motivation, anxiety, sleep, focus/concentra tion/memory (vigilance, elasticity, processing and attention); can also contribute to development of psychosis. Cannabis/mariju carolee information: http_s://chap[place].n ih.gov/publicat ions/drugfacts/ cannabis-jarrodju carolee http_s://www.[employer].Picturelife/c wqtiznv-ypq-wwy order-marijuana -adhd/ 4. Sleep apnea-CPAP- sleep provider and PCP PCP seen for CPAP PCP sheduled and labs Discussion Notes therapy scheduled JENNIFER- 05/15/2024 Generalized anxiety disorder (ICD-10 - F41.1) 1. major depression- Lexapro 20 mg daily discuss and educated on Cymbalta help with depression and anxiety and also help with chronic pain, Cymbalta 60 mg daily in am- will monitor for fatigue refer to therapy http_s://www.ni .nih.gov/heal th/topics/menta e-joqtuy-ijudfu tions http_s://www.na mi.org/About-Me ntal-Illness/Tr eatments/Mental -Health-Medicat ions educated on all medications, benefits, side effects and risk, and educated on depression, anxiety, and mood d/o and educated on compliance of medications, metabolic and movement d/o education appointment is, continue therapy discussion with patient about course of treatment and patient instructions. education on serotonin syndrome SSRI/SNRI side effects discussed including but not limited to, gastric upset, nausea, vomiting, diarrhea and/or constipation, weight changes, sexual side effects including loss of libido, increased suicidal thoughts/behavi ors in children and young adults, and serotonin syndrome Xanax perscribed by PCP 2. Generalized anxiety disorder -Lexapro 20 mg daily Cymbalta 60 mg daily in am Medication Management and Follow-Up - Plan: - Schedule follow-up appointments every 2-3 months to monitor the patient's response to the medication regimen. - Reinforce the importance of avoiding recreational drug use due to potential neurotoxicity and interactions with prescribed medications. Xanax prescribed by PCP 3. Cannabis dependence-no control substance prescribed by JENNIFER Recommend decrease/stop cannabis use as it may be negatively impacting mood, motivation, anxiety, sleep, focus; can also contribute to development of psychosis 4. Sleep apnea-CPAP- sleep provider and PCP PCP seen for CPAP PCP sheduled and labs Discussion Notes 11/28/2023 Sleep apnea, unspecified (ICD-10 - G47.30) 1. Mild recurrent major depression- Lexapro 20 mg daily discuss and educated on Cymbalta help with depression and anxiety and also help with chronic pain, Cymbalta 60 mg daily in am- will monitor for fatigue http_s://www.ni .nih.gov/heal th/topics/menta a-nzuhaq-izttui tions http_s://www.na mi.org/About-Me ntal-Illness/Tr eatments/Mental -Health-Medicat ions educated on all medications, benefits, side effects and risk, and educated on depression, anxiety, and mood d/o and educated on compliance of medications, metabolic and movement d/o education appointment is, continue therapy discussion with patient about course of treatment and patient instructions. education on serotonin syndrome SSRI/SNRI side effects discussed including but not limited to, gastric upset, nausea, vomiting, diarrhea and/or constipation, weight changes, sexual side effects including loss of libido, increased suicidal thoughts/behavi ors in children and young adults, and serotonin syndrome Reviewed records and labs PCP from refer note 09/27/23 F33.0: Major depressive disorder, recurrent, mild Xanax perscribed by PCP duloxetine 60 mg capsule,delayed release - Take 1 capsule(s) every day by oral route in the morning for 30 days. Qty: (30) capsule Refills: 0 Pharmacy: [facility] 256 escitalopram 20 mg tablet - Take 1 tablet(s) every day by oral route in the morning for 90 days. Qty: (90) tablet Refills: 0 Pharmacy: [facility] 256 2. Generalized anxiety disorder -Lexapro 20 mg daily Cymbalta Medication Management and Follow-Up - Plan: - Schedule follow-up appointments every 2-3 months to monitor the patient's response to the medication regimen. - Reinforce the importance of avoiding recreational drug use due to potential neurotoxicity and interactions with prescribed medications. F41.1: Generalized anxiety disorder Xanax prescribed by PCP 3. Cannabis dependence-no control substance prescribed by JENNIFER Recommend decrease/stop cannabis use as it may be negatively impacting mood, motivation, anxiety, sleep, focus; can also contribute to development of psychosis F12.20: Cannabis dependence, uncomplicated DRUG SCREEN, 14 DRUGS (DETECTIMED), URINE today Positive THC and benzo 4. Sleep apnea-CPAP- sleep provider and PCP G47.30: Sleep apnea, unspecified PCP seen for CPAP PCP labs completed DRUG SCREEN, 14 DRUGS (DETECTIMED), URINEResults: - THC: positive- Result Note: + THC Discussion Notes Reviewed records and labs PCP from refer note 09/27/23 03/16/2024 Sleep apnea, unspecified (ICD-10 - G47.30) 1. Mild recurrent major depression- Lexapro 20 mg daily discuss and educated on Cymbalta help with depression and anxiety and also help with chronic pain, will increase Cymbalta 60 mg daily in am- will monitor for fatigue http_s://www.ni .nih.gov/heal th/topics/menta f-xcmlxs-qwllol tions http_s://www.na mi.org/About-Me ntal-Illness/Tr eatments/Mental -Health-Medicat ions educated on all medications, benefits, side effects and risk, and educated on depression, anxiety, and mood d/o and educated on compliance of medications, metabolic and movement d/o education appointment is, continue therapy discussion with patient about course of treatment and patient instructions. education on serotonin syndrome SSRI/SNRI side effects discussed including but not limited to, gastric upset, nausea, vomiting, diarrhea and/or constipation, weight changes, sexual side effects including loss of libido, increased suicidal thoughts/behavi ors in children and young adults, and serotonin syndrome Xanax perscribed by PCP 2. Generalized anxiety disorder -Lexapro 20 mg daily Cymbalta 60 mg daily in am Medication Management and Follow-Up - Plan: - Schedule follow-up appointments every 2-3 months to monitor the patient's response to the medication regimen. - Reinforce the importance of avoiding recreational drug use due to potential neurotoxicity and interactions with prescribed medications. Xanax prescribed by PCP 3. Cannabis dependence-no control substance prescribed by JENNIFER Recommend decrease/stop cannabis use as it may be negatively impacting mood, motivation, anxiety, sleep, focus; can also contribute to development of psychosis 4. Sleep apnea-CPAP- sleep provider and PCP PCP seen for CPAP PCP sheduled and labs Discussion Notes 03/16/2024 Cannabis dependence, uncomplicated (ICD-10 - F12.20) 1. Mild recurrent major depression- Lexapro 20 mg daily discuss and educated on Cymbalta help with depression and anxiety and also help with chronic pain, will increase Cymbalta 60 mg daily in am- will monitor for fatigue http_s://www.ni .nih.gov/heal th/topics/menta f-niadhf-gixxlz tions http_s://www.na mi.org/About-Me ntal-Illness/Tr eatments/Mental -Health-Medicat ions educated on all medications, benefits, side effects and risk, and educated on depression, anxiety, and mood d/o and educated on compliance of medications, metabolic and movement d/o education appointment is, continue therapy discussion with patient about course of treatment and patient instructions. education on serotonin syndrome SSRI/SNRI side effects discussed including but not limited to, gastric upset, nausea, vomiting, diarrhea and/or constipation, weight changes, sexual side effects including loss of libido, increased suicidal thoughts/behavi ors in children and young adults, and serotonin syndrome Xanax perscribed by PCP 2. Generalized anxiety disorder -Lexapro 20 mg daily Cymbalta 60 mg daily in am Medication Management and Follow-Up - Plan: - Schedule follow-up appointments every 2-3 months to monitor the patient's response to the medication regimen. - Reinforce the importance of avoiding recreational drug use due to potential neurotoxicity and interactions with prescribed medications. Xanax prescribed by PCP 3. Cannabis dependence-no control substance prescribed by JENNIFER Recommend decrease/stop cannabis use as it may be negatively impacting mood, motivation, anxiety, sleep, focus; can also contribute to development of psychosis 4. Sleep apnea-CPAP- sleep provider and PCP PCP seen for CPAP PCP sheduled and labs Discussion Notes 11/28/2023 Cannabis dependence, uncomplicated (ICD-10 - F12.20) 1. Mild recurrent major depression- Lexapro 20 mg daily discuss and educated on Cymbalta help with depression and anxiety and also help with chronic pain, Cymbalta 60 mg daily in am- will monitor for fatigue http_s://www.[facility].nih.gov/heal th/topics/menta w-ynluat-tytzei tions http_s://www.na mi.org/About-Me ntal-Illness/Tr eatments/Mental -Health-Medicat ions educated on all medications, benefits, side effects and risk, and educated on depression, anxiety, and mood d/o and educated on compliance of medications, metabolic and movement d/o education appointment is, continue therapy discussion with patient about course of treatment and patient instructions. education on serotonin syndrome SSRI/SNRI side effects discussed including but not limited to, gastric upset, nausea, vomiting, diarrhea and/or constipation, weight changes, sexual side effects including loss of libido, increased suicidal thoughts/behavi ors in children and young adults, and serotonin syndrome Reviewed records and labs PCP from refer note 09/27/23 F33.0: Major depressive disorder, recurrent, mild Xanax perscribed by PCP duloxetine 60 mg capsule,delayed release - Take 1 capsule(s) every day by oral route in the morning for 30 days. Qty: (30) capsule Refills: 0 Pharmacy: [facility] 256 escitalopram 20 mg tablet - Take 1 tablet(s) every day by oral route in the morning for 90 days. Qty: (90) tablet Refills: 0 Pharmacy: [facility] 256 2. Generalized anxiety disorder -Lexapro 20 mg daily Cymbalta Medication Management and Follow-Up - Plan: - Schedule follow-up appointments every 2-3 months to monitor the patient's response to the medication regimen. - Reinforce the importance of avoiding recreational drug use due to potential neurotoxicity and interactions with prescribed medications. F41.1: Generalized anxiety disorder Xanax prescribed by PCP 3. Cannabis dependence-no control substance prescribed by JENNIFER Recommend decrease/stop cannabis use as it may be negatively impacting mood, motivation, anxiety, sleep, focus; can also contribute to development of psychosis F12.20: Cannabis dependence, uncomplicated DRUG SCREEN, 14 DRUGS (DETECTIMED), URINE today Positive THC and benzo 4. Sleep apnea-CPAP- sleep provider and PCP G47.30: Sleep apnea, unspecified PCP seen for CPAP PCP labs completed DRUG SCREEN, 14 DRUGS (DETECTIMED), URINEResults: - THC: positive- Result Note: + THC Discussion Notes Reviewed records and labs PCP from refer note 09/27/23 05/15/2024 Sleep apnea, unspecified (ICD-10 - G47.30) 1. major depression- Lexapro 20 mg daily discuss and educated on Cymbalta help with depression and anxiety and also help with chronic pain, Cymbalta 60 mg daily in am- will monitor for fatigue refer to therapy http_s://www.ni mh.nih.gov/heal th/topics/menta y-ijsajk-ngnbdp tions http_s://www.na mi.org/About-Me ntal-Illness/Tr eatments/Mental -Health-Medicat ions educated on all medications, benefits, side effects and risk, and educated on depression, anxiety, and mood d/o and educated on compliance of medications, metabolic and movement d/o education appointment is, continue therapy discussion with patient about course of treatment and patient instructions. education on serotonin syndrome SSRI/SNRI side effects discussed including but not limited to, gastric upset, nausea, vomiting, diarrhea and/or constipation, weight changes, sexual side effects including loss of libido, increased suicidal thoughts/behavi ors in children and young adults, and serotonin syndrome Xanax perscribed by PCP 2. Generalized anxiety disorder -Lexapro 20 mg daily Cymbalta 60 mg daily in am Medication Management and Follow-Up - Plan: - Schedule follow-up appointments every 2-3 months to monitor the patient's response to the medication regimen. - Reinforce the importance of avoiding recreational drug use due to potential neurotoxicity and interactions with prescribed medications. Xanax prescribed by PCP 3. Cannabis dependence-no control substance prescribed by JENNIFER Recommend decrease/stop cannabis use as it may be negatively impacting mood, motivation, anxiety, sleep, focus; can also contribute to development of psychosis 4. Sleep apnea-CPAP- sleep provider and PCP PCP seen for CPAP PCP sheduled and labs Discussion Notes 07/26/2024 Sleep apnea, unspecified (ICD-10 - G47.30) 1. major depression- Lexapro 20 mg daily discuss and educated on Cymbalta help with depression and anxiety and also help with chronic pain, Cymbalta 60 mg daily in am- Therapy scheduled JENNIFER refer to therapy http_s://www.ni .nih.gov/heal th/topics/menta t-wexdsm-qbxjmf tions http_s://www.na mi.org/About-Me ntal-Illness/Tr eatments/Mental -Health-Medicat ions educated on all medications, benefits, side effects and risk, and educated on depression, anxiety, and mood d/o and educated on compliance of medications, metabolic and movement d/o education appointment is, continue therapy discussion with patient about course of treatment and patient instructions. education on serotonin syndrome SSRI/SNRI side effects discussed including but not limited to, gastric upset, nausea, vomiting, diarrhea and/or constipation, weight changes, sexual side effects including loss of libido, increased suicidal thoughts/behavi ors in children and young adults, and serotonin syndrome Xanax perscribed by PCP 2. Generalized anxiety disorder -Lexapro 20 mg daily Cymbalta 60 mg daily in am Medication Management and Follow-Up - Plan: - Schedule follow-up appointments every 2-3 months to monitor the patient's response to the medication regimen. - Reinforce the importance of avoiding recreational drug use due to potential neurotoxicity and interactions with prescribed medications. NO CONTROL SUBSTANCE PRESCRIBED BY JENNIFER R/T CANNABIS USE Xanax prescribed by PCP 3. Cannabis dependence-no control substance prescribed by JENNIFER Recommend decrease/stop cannabis use as it may be negatively impacting mood, motivation, anxiety, sleep, focus; can also contribute to development of psychosis Recommend decrease/stop cannabis use as it can negatively impact mood, motivation, anxiety, sleep, focus/concentra tion/memory (vigilance, elasticity, processing and attention); can also contribute to development of psychosis. Cannabis/mariju carolee information: http_s://[place].gov/publicat ions/drugfacts/ cannabis-mariju carolee http_s://[employer]/c rsebbkp-emn-cpx order-marijuana -adhd/ 4. Sleep apnea-CPAP- sleep provider and PCP PCP seen for CPAP PCP sheduled and labs Discussion Notes therapy scheduled JENNIFER- 07/26/2024 Cannabis dependence, uncomplicated (ICD-10 - F12.20) 1. major depression- Lexapro 20 mg daily discuss and educated on Cymbalta help with depression and anxiety and also help with chronic pain, Cymbalta 60 mg daily in am- Therapy scheduled JENNIFER refer to therapy http_s://www.ni mh.nih.gov/heal th/topics/menta z-ugiymm-veajaq tions http_s://www.na mi.org/About-Me ntal-Illness/Tr eatments/Mental -Health-Medicat ions educated on all medications, benefits, side effects and risk, and educated on depression, anxiety, and mood d/o and educated on compliance of medications, metabolic and movement d/o education appointment is, continue therapy discussion with patient about course of treatment and patient instructions. education on serotonin syndrome SSRI/SNRI side effects discussed including but not limited to, gastric upset, nausea, vomiting, diarrhea and/or constipation, weight changes, sexual side effects including loss of libido, increased suicidal thoughts/behavi ors in children and young adults, and serotonin syndrome Xanax perscribed by PCP 2. Generalized anxiety disorder -Lexapro 20 mg daily Cymbalta 60 mg daily in am Medication Management and Follow-Up - Plan: - Schedule follow-up appointments every 2-3 months to monitor the patient's response to the medication regimen. - Reinforce the importance of avoiding recreational drug use due to potential neurotoxicity and interactions with prescribed medications. NO CONTROL SUBSTANCE PRESCRIBED BY JENNIFER R/T CANNABIS USE Xanax prescribed by PCP 3. Cannabis dependence-no control substance prescribed by JENNIFER Recommend decrease/stop cannabis use as it may be negatively impacting mood, motivation, anxiety, sleep, focus; can also contribute to development of psychosis Recommend decrease/stop cannabis use as it can negatively impact mood, motivation, anxiety, sleep, focus/concentra tion/memory (vigilance, elasticity, processing and attention); can also contribute to development of psychosis. Cannabis/mariju carolee information: http_s://[place].n ih.gov/publicat ions/drugfacts/ cannabis-mariju carolee http_s://www.[employer]/c wvxsjvc-zqt-biu order-marijuana -adhd/ 4. Sleep apnea-CPAP- sleep provider and PCP PCP seen for CPAP PCP sheduled and labs Discussion Notes therapy scheduled JENNIFER- 05/15/2024 Cannabis dependence, uncomplicated (ICD-10 - F12.20) 1. major depression- Lexapro 20 mg daily discuss and educated on Cymbalta help with depression and anxiety and also help with chronic pain, Cymbalta 60 mg daily in am- will monitor for fatigue refer to therapy http_s://www.ni mh.nih.gov/heal th/topics/menta g-dnqcut-zswblw tions http_s://www.na mi.org/About-Me ntal-Illness/Tr eatments/Mental -Health-Medicat ions educated on all medications, benefits, side effects and risk, and educated on depression, anxiety, and mood d/o and educated on compliance of medications, metabolic and movement d/o education appointment is, continue therapy discussion with patient about course of treatment and patient instructions. education on serotonin syndrome SSRI/SNRI side effects discussed including but not limited to, gastric upset, nausea, vomiting, diarrhea and/or constipation, weight changes, sexual side effects including loss of libido, increased suicidal thoughts/behavi ors in children and young adults, and serotonin syndrome Xanax perscribed by PCP 2. Generalized anxiety disorder -Lexapro 20 mg daily Cymbalta 60 mg daily in am Medication Management and Follow-Up - Plan: - Schedule follow-up appointments every 2-3 months to monitor the patient's response to the medication regimen. - Reinforce the importance of avoiding recreational drug use due to potential neurotoxicity and interactions with prescribed medications. Xanax prescribed by PCP 3. Cannabis dependence-no control substance prescribed by JENNIFER Recommend decrease/stop cannabis use as it may be negatively impacting mood, motivation, anxiety, sleep, focus; can also contribute to development of psychosis 4. 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 Mild recurrent major depression- Lexapro 20 mg daily discuss and educated on Cymbalta help with depression and anxiety and also help with chronic pain, will increase Cymbalta 60 mg daily in am- will monitor for fatigue http_s://www.ni mh.nih.gov/heal th/topics/menta m-uhuxhf-qzzjos tions http_s://www.na mi.org/About-Me ntal-Illness/Tr eatments/Mental -Health-Medicat ions educated on all medications, benefits, side effects and risk, and educated on depression, anxiety, and mood d/o and educated on compliance of medications, metabolic and movement d/o education appointment is, continue therapy discussion with patient about course of treatment and patient instructions. education on serotonin syndrome SSRI/SNRI side effects discussed including but not limited to, gastric upset, nausea, vomiting, diarrhea and/or constipation, weight changes, sexual side effects including loss of libido, increased suicidal thoughts/behavi ors in children and young adults, and serotonin syndrome Xanax perscribed by PCP 2. Generalized anxiety disorder -Lexapro 20 mg daily Cymbalta 60 mg daily in am Medication Management and Follow-Up - Plan: - Schedule follow-up appointments every 2-3 months to monitor the patient's response to the medication regimen. - Reinforce the importance of avoiding recreational drug use due to potential neurotoxicity and interactions with prescribed medications. Xanax prescribed by PCP 3. Cannabis dependence-no control substance prescribed by JENNIFER Recommend decrease/stop cannabis use as it may be negatively impacting mood, motivation, anxiety, sleep, focus; can also contribute to development of psychosis 4. Sleep apnea-CPAP- sleep provider and PCP PCP seen for CPAP PCP sheduled and labs Discussion Notes 11/28/2023 Other alf (current) drug therapy (ICD9-CM - V58.69) 1. Mild recurrent major depression- Lexapro 20 mg daily discuss and educated on Cymbalta help with depression and anxiety and also help with chronic pain, Cymbalta 60 mg daily in am- will monitor for fatigue http_s://www.ni mh.nih.gov/heal th/topics/menta g-hdwjcu-uvjerd tions http_s://www.na mi.org/About-Me ntal-Illness/Tr eatments/Mental -Health-Medicat ions educated on all medications, benefits, side effects and risk, and educated on depression, anxiety, and mood d/o and educated on compliance of medications, metabolic and movement d/o education appointment is, continue therapy discussion with patient about course of treatment and patient instructions. education on serotonin syndrome SSRI/SNRI side effects discussed including but not limited to, gastric upset, nausea, vomiting, diarrhea and/or constipation, weight changes, sexual side effects including loss of libido, increased suicidal thoughts/behavi ors in children and young adults, and serotonin syndrome Reviewed records and labs PCP from refer note 09/27/23 F33.0: Major depressive disorder, recurrent, mild Xanax perscribed by PCP duloxetine 60 mg capsule,delayed release - Take 1 capsule(s) every day by oral route in the morning for 30 days. Qty: (30) capsule Refills: 0 Pharmacy: [facility] 256 escitalopram 20 mg tablet - Take 1 tablet(s) every day by oral route in the morning for 90 days. Qty: (90) tablet Refills: 0 Pharmacy: [facility] 256 2. Generalized anxiety disorder -Lexapro 20 mg daily Cymbalta Medication Management and Follow-Up - Plan: - Schedule follow-up appointments every 2-3 months to monitor the patient's response to the medication regimen. - Reinforce the importance of avoiding recreational drug use due to potential neurotoxicity and interactions with prescribed medications. F41.1: Generalized anxiety disorder Xanax prescribed by PCP 3. Cannabis dependence-no control substance prescribed by JENNIFER Recommend decrease/stop cannabis use as it may be negatively impacting mood, motivation, anxiety, sleep, focus; can also contribute to development of psychosis F12.20: Cannabis dependence, uncomplicated DRUG SCREEN, 14 DRUGS (DETECTIMED), URINE today Positive THC and benzo 4. Sleep apnea-CPAP- sleep provider and PCP G47.30: Sleep apnea, unspecified PCP seen for CPAP PCP labs completed DRUG SCREEN, 14 DRUGS (DETECTIMED), URINEResults: - THC: positive- Result Note: + THC Discussion Notes Reviewed records and labs PCP from refer note 09/27/23 05/15/2024 On alf drug therapy (ICD-10 - Z79.899) 1. major depression- Lexapro 20 mg daily discuss and educated on Cymbalta help with depression and anxiety and also help with chronic pain, Cymbalta 60 mg daily in am- will monitor for fatigue refer to therapy http_s://www.ni .nih.gov/heal th/topics/menta h-unbqon-klcnbc tions http_s://www.na mi.org/About-Me ntal-Illness/Tr eatments/Mental -Health-Medicat ions educated on all medications, benefits, side effects and risk, and educated on depression, anxiety, and mood d/o and educated on compliance of medications, metabolic and movement d/o education appointment is, continue therapy discussion with patient about course of treatment and patient instructions. education on serotonin syndrome SSRI/SNRI side effects discussed including but not limited to, gastric upset, nausea, vomiting, diarrhea and/or constipation, weight changes, sexual side effects including loss of libido, increased suicidal thoughts/behavi ors in children and young adults, and serotonin syndrome Xanax perscribed by PCP 2. Generalized anxiety disorder -Lexapro 20 mg daily Cymbalta 60 mg daily in am Medication Management and Follow-Up - Plan: - Schedule follow-up appointments every 2-3 months to monitor the patient's response to the medication regimen. - Reinforce the importance of avoiding recreational drug use due to potential neurotoxicity and interactions with prescribed medications. Xanax prescribed by PCP 3. Cannabis dependence-no control substance prescribed by JENNIFER Recommend decrease/stop cannabis use as it may be negatively impacting mood, motivation, anxiety, sleep, focus; can also contribute to development of psychosis 4. Sleep apnea-CPAP- sleep provider and PCP PCP seen for CPAP PCP sheduled and labs Discussion Notes 07/26/2024 On [employer] drug therapy (ICD-10 - Z79.899) 1. major depression- Lexapro 20 mg daily discuss and educated on Cymbalta help with depression and anxiety and also help with chronic pain, Cymbalta 60 mg daily in am- Therapy scheduled JENNIFER refer to therapy http_s://www[facility].nih.gov/heal th/topics/menta b-fslmxr-xayeep tions http_s://www.na mi.org/About-Me ntal-Illness/Tr eatments/Mental -Health-Medicat ions educated on all medications, benefits, side effects and risk, and educated on depression, anxiety, and mood d/o and educated on compliance of medications, metabolic and movement d/o education appointment is, continue therapy discussion with patient about course of treatment and patient instructions. education on serotonin syndrome SSRI/SNRI side effects discussed including but not limited to, gastric upset, nausea, vomiting, diarrhea and/or constipation, weight changes, sexual side effects including loss of libido, increased suicidal thoughts/behavi ors in children and young adults, and serotonin syndrome Xanax perscribed by PCP 2. Generalized anxiety disorder -Lexapro 20 mg daily Cymbalta 60 mg daily in am Medication Management and Follow-Up - Plan: - Schedule follow-up appointments every 2-3 months to monitor the patient's response to the medication regimen. - Reinforce the importance of avoiding recreational drug use due to potential neurotoxicity and interactions with prescribed medications. NO CONTROL SUBSTANCE PRESCRIBED BY JENNIFER R/T CANNABIS USE Xanax prescribed by PCP 3. Cannabis dependence-no control substance prescribed by JENNIFER Recommend decrease/stop cannabis use as it may be negatively impacting mood, motivation, anxiety, sleep, focus; can also contribute to development of psychosis Recommend decrease/stop cannabis use as it can negatively impact mood, motivation, anxiety, sleep, focus/concentra tion/memory (vigilance, elasticity, processing and attention); can also contribute to development of psychosis. Cannabis/mariju carolee information: http_s://chapin.n ih.gov/publicat ions/drugfacts/ cannabis-mariju carolee http_s://www.[employer].Picturelife/c egvatyd-bgp-hap order-marijuana -adhd/ 4. Sleep apnea-CPAP- sleep provider and PCP PCP seen for CPAP PCP sheduled and labs Discussion Notes therapy scheduled JENNIFER- 11/28/2023 Other 1. Mild recurrent major depression-Lexapro 20 mg dailydiscuss and educated on Cymbalta help with depression and anxiety and also help with chronic pain, Cymbalta 60 mg daily in am- will monitor for fatigue https://www.nim. h.gov/health/topics /knotxy-hfxjqt-vizf cations https://www.estelle.or g/Paiwc-Rfasif-Dcak ess/Treatments/Ment ip-Qrfpnh-Bocbspgfn ns educated on all medications, benefits, side effects and risk, and educated on depression, anxiety, and mood d/o and educated on compliance of medications, metabolic and movement d/o education appointment is, continue therapy discussion with patient about course of treatment and patient instructions. education on serotonin syndrome SSRI/SNRI side effects discussed including but not limited to, gastric upset, nausea, vomiting, diarrhea and/or constipation, weight changes, sexual side effects including loss of libido, increased suicidal thoughts/behaviors in children and young adults, and serotonin syndrome Reviewed records and labs PCP from refer note 09/27/23F33.0: Major depressive disorder, recurrent, mildXanax perscribed by PCP duloxetine 60 mg capsule,delayed release - Take 1 capsule(s) every day by oral route in the morning for 30 days. Qty: (30) capsule Refills: 0 Pharmacy: [facility] 256escitalopram 20 mg tablet - Take 1 tablet(s) every day by oral route in the morning for 90 days. Qty: (90) tablet Refills: 0 Pharmacy: [facility] 256 2. Generalized anxiety disorder-Lexapro 20 mg dailyCymbalta Medication Management and Follow-Up - Plan: - Schedule follow-up appointments every 2-3 months to monitor the patient's response to the medication regimen. - Reinforce the importance of avoiding recreational drug use due to potential neurotoxicity and interactions with prescribed medications. F41.1: Generalized anxiety disorderXanax prescribed by PCP 3. Cannabis dependence-no control substance prescribed by JENNIFER Recommend decrease/stop cannabis use as it may be negatively impacting mood, motivation, anxiety, sleep, focus; can also contribute to development of psychosis F12.20: Cannabis dependence, uncomplicatedDRUG SCREEN, 14 DRUGS (DETECTIMED), URINE today Positive THC and benzo 4. Sleep apnea-CPAP- sleep provider and PCPG47.30: Sleep apnea, unspecifiedPCP seen for CPAPPCP labs completed DRUG SCREEN, 14 DRUGS (DETECTIMED), URINEResults: - THC: positive- Result Note: + THCDiscussion NotesReviewed records and labs PCP from refer note 09/27/23 1. Mild recurrent major depression- Lexapro 20 mg daily discuss and educated on Cymbalta help with depression and anxiety and also help with chronic pain, Cymbalta 60 mg daily in am- will monitor for fatigue http_s://www.ni .nih.gov/heal th/topics/menta a-qmygyu-rcctgr tions http_s://www.na mi.org/About-Me ntal-Illness/Tr eatments/Mental -Health-Medicat ions educated on all medications, benefits, side effects and risk, and educated on depression, anxiety, and mood d/o and educated on compliance of medications, metabolic and movement d/o education appointment is, continue therapy discussion with patient about course of treatment and patient instructions. education on serotonin syndrome SSRI/SNRI side effects discussed including but not limited to, gastric upset, nausea, vomiting, diarrhea and/or constipation, weight changes, sexual side effects including loss of libido, increased suicidal thoughts/behavi ors in children and young adults, and serotonin syndrome Reviewed records and labs PCP from refer note 09/27/23 F33.0: Major depressive disorder, recurrent, mild Xanax perscribed by PCP duloxetine 60 mg capsule,delayed release - Take 1 capsule(s) every day by oral route in the morning for 30 days. Qty: (30) capsule Refills: 0 Pharmacy: [facility] 256 escitalopram 20 mg tablet - Take 1 tablet(s) every day by oral route in the morning for 90 days. Qty: (90) tablet Refills: 0 Pharmacy: [facility] 256 2. Generalized anxiety disorder -Lexapro 20 mg daily Cymbalta Medication Management and Follow-Up - Plan: - Schedule follow-up appointments every 2-3 months to monitor the patient's response to the medication regimen. - Reinforce the importance of avoiding recreational drug use due to potential neurotoxicity and interactions with prescribed medications. F41.1: Generalized anxiety disorder Xanax prescribed by PCP 3. Cannabis dependence-no control substance prescribed by JENNIFER Recommend decrease/stop cannabis use as it may be negatively impacting mood, motivation, anxiety, sleep, focus; can also contribute to development of psychosis F12.20: Cannabis dependence, uncomplicated DRUG SCREEN, 14 DRUGS (DETECTIMED), URINE today Positive THC and benzo 4. Sleep apnea-CPAP- sleep provider and PCP G47.30: Sleep apnea, unspecified PCP seen for CPAP PCP labs completed DRUG SCREEN, 14 DRUGS (DETECTIMED), URINEResults: - THC: positive- Result Note: + THC Discussion Notes Reviewed records and labs PCP from refer note 09/27/23 Plan Of Treatment No Information Insurance Providers Payer Name Payer Address Payer Phone Subscriber Number Group Number Insured Name Patient Relationship to Insured Coverage Start Date Coverage End Date Medicare-I l Medicare [address] [place] [address] [id number] RADHA KRISTAL MOREIRA Self - patient is the insured [employer] [address] [place] [address] [id number] KRISTAL GARCIAE Self - patient is the insured Medical (General) History Medical History History ICD Code Problems: Cannabis dependence Chronic pain Generalized anxiety disorder Major depressive disorder Mild recurrent major depression Sleep apnea , Past Psychiatric History: Anxiety Disord er abdominal aortic aneurysm: No atrial fibrillation: No chronic fatigue syndrome: No essential tremor: No hypertension: No Parkinson's disease: No restless leg syndrome: No stroke: No subdural hematoma: No type 1 diabetes mellitus: No type 2 diabetes mellitus: No vitamin B12 deficiency: No vitamin D deficiency: No Surgical History Surgery Date(Month/Year) Removal of gallbladder (57500) Hysterectomy (43315) rt foot x3 bilateral shoulder
--- OUTSIDE RECORDS SUMMARY | 2024-09-04 11:59 | XMS_ITS | Clinical Summary ---
Author Organization [facility] [address] [place] [address] Care Team Providers Care Coke Inspector Name Role Phone Rhea James MD Primary Care Provider + Allergies Active Allergy Reactions Criticality Noted Date Comments Naproxen Other (See comments) Low 12/19/2017 CANT TAKE NSAIDS DUE TO IBSD Medications pantoprazole DR (PROTONIX) 40 mg EC tablet take 1 tablet by oral route every day 0 0 6 Active lisinopril (PRINIVIL,ZESTR IL) 10 mg tablet take 1 tablet by oral route every day 0 0 3 Active escitalopram (LEXAPRO) 20 mg tablet take 1 tablet (20MG) by ORAL route every day 0 0 Active Additional Information Patient taking differently: 10 mg oral Daily, Reported on 12/19/2017 timolol (TIMOPTIC) 0.5 % ophthalmic solution 7 Active amitriptyline (ELAVIL) 25 mg tablet Take 25 mg by mouth nightly. 8 Active fluticasone (FLONASE) 50 mcg/actuation nasal spray Administer 2 sprays into each nostril daily. 8 Active Active Problems Problem Noted Date Diagnosed Date Major depressive disorder 12/19/2017 Essential hypertension 12/19/2017 Disorder of joint 03/21/2015 Overview (09/10/2016): Arthritis, midfoot Localized osteoarthrosis 02/28/2015 Overview (09/10/2016): Localized osteoarthrosis Surgical History Surgery Date Site/Laterality Comments CHOLECYSTECTOMY Cholecystectomy OTHER SURGICAL HISTORY Melanoma s/p excision on face 08 CHOLECYSTECTOMY gallbladder removal HYSTERECTOMY 2010 Hysterectomy OTHER SURGICAL HISTORY Fusion of midfoot bones FL FLUORO GUIDED INJECTION H IP LEFT 01/02/2018 Left FLUORO GUIDED ASPIRATION OR INJECTION LARGE JOINT LEFT 05/26/2018 Left Medical History Medical History Date Comments Hx Other Medical Melanoma remova l face 1996 cancer Malignant neoplasm of skin Cance r, skin Disorder of gallbladder Gallblad david disease Arthritis Arthritis Hx Other Medical plate in right foot 2012; Comments: JNS 12/24/2014 - Family History Medical History Relation Name Comments Diabetes Father Diabetes mellit us; Lung cancer Mother Cancer, lung; Cancer Other 1 Family history of Cancer; Stroke Other 2 Family history of Stroke; Relation Name Status Comments Father Alive Mother Alive Other 1 Other 2 Social History Tobacco Use Types Packs/Day Years Used Date Smoking Tobacco: Former Smokeless Tobacco: Never Alcohol Use Standard Drinks/Week Comments Yes 0 (1 standard drink = 0.6 oz pur e alcohol) social Comments Unknown Sex and Gender Information Value Date Recorded Sex Assigned at Not on file 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 Gender Identity Not on file Sexual Orientation Not on file 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 Not on file Not on file Obstetrics History Last Filed Vital Signs Vital Sign Reading Time Taken Comments Blood Pressure 134/82 12/19/2017 8:04 AM CDT Pulse 71 12/19/2017 8:04 AM CDT Temperature 36.7 C (98.1 F) 12/19/2017 8:04 AM CDT Respiratory Rate - - Oxygen Saturation - - Inhaled Oxygen Concentration - - Weight 91.1 kg (200 lb 12.8 oz) 12/22/2017 9:19 AM CDT Height 158.8 cm (5' 2.5 ) 12/22/2017 9:19 AM CDT Body Mass Index 36.14 12/22/2017 9:19 AM CDT Plan of Treatment Not on file Insurance BLUE ACCESS OOS ANTHEM ACCESS Care Teams Coke Inspector Relationship Specialty Start Date End Date Rhea James MD PCP - General 09/03/16
--- OUTSIDE RECORDS SUMMARY | 2024-09-04 11:59 | XMS_ITS ---
Author Organization [facility] [employer] [facility] Address [address] [facility] [address] [place] [address] Care Team Providers Care Trash Truck Driver Name Role Phone Rhea James MD Primary Care Provider Valerie Jeo [phone] Medications Medication SIG (Take, Route, Fr equency, Duration) Notes Start Date End Date Status DULoxetine HCl 60 MG 1 capsule Oral Once a day for 30 days Active Social History Sex Assigned At : Social History Observation Description Sex Assigned At Female Encounters Encounter Location Date Provider Diagnosis [facility] [employer] [facility] [address] [facility] [address] [facility] [address] [place] [address] 07/06/2024 Valerie Rodrigez Major depressive disorder, recurrent, mild F33.0 Assessments Encounter Date Diagnosis (ICD Code) Assessment Notes Treatment Notes Treatment Clinical Notes Section Notes 07/06/2024 Major depressive disorder, recurrent, mild (ICD-10 - F33.0) Plan Of Treatment Medication Medication Name Sig Start Date Stop Date Notes DULoxetine HCl 60 MG 1 capsule Oral Once a day for 30 days Progress Notes * KRISTAL GARCIAONDOB: 1960 (64 yo F)Acc No.[id number]:07/06/2024 Patient: KRISTAL TAM STRANGE :1960 A ge:64 Y S ex:Female Address:[address] [place] [address], [id number] * Refills Refill DULoxetine HCl Capsule Delayed Release Particles, 60 MG, Oral, 30 Capsule, 1 capsule, Once a day, 30 days, Refills=0 * true * Date: Generated for Lissette winston/Kaushik/Shweta on: 0 09/04/2024 11:59 AM CDT
--- OUTSIDE RECORDS SUMMARY | 2024-09-04 11:59 | XMS_ITS | Referral Summary ---
Author Organization [facility] Phys[facility] Office Building [address] [place] [id number] Care Team Providers Care Ocean Freight Forwarder Name Role Phone Rhea James MD Primary [...] Localized osteoarthrosis 02/28/2015 Overview (09/10/2016): Localized osteoarthrosis Social History Tobacco Use Types Packs/Day Years Used Date Smoking Tobacco: Former Smokeless Tobacco: Never Alcohol Use Standard Drinks/Week Comments Yes 0 (1 standard drink = 0.6 oz pur e alcohol) social Comments Unknown Sex and Gender Information Value Date Recorded Sex Assigned at Not on file Legal Sex Female 11:18 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
--- OUTSIDE RECORDS SUMMARY | 2024-09-04 12:00 | XMS_ITS ---
Author Organization [facility] [employer] Address [address] [place] [address] Care Team Providers Care Underwriting Director Name Role Phone [employer], Rhea Primary Care Provider Valerie Joe Unavailable [phone] Allergies No Known Allergies REASON FOR VISIT follow-up Medications Medication SIG (Take, Route, Frequency, Duration) Notes Start Date End Date Status DULoxetine HCl 60 MG 1 capsule Oral Once a day for 90 days Active Escitalopram Oxalate 10 MG Oral 10/24/2023 Not-Taking HYDROcodone-Acetaminophen 5-325 MG Oral 10/24/2023 Not-Taking Ondansetron 4 MG Oral 10/24/2023 Ac tive Latanoprost 0.005 % Ophthalmic 10/24/2023 Active ALPRAZolam 0.5 MG Oral 10/24/2023 A ctive Losartan Potassium-HCTZ 100-12.5 MG Oral 10/24/2023 Active Escitalopram Oxalate 20 MG 1 tablet Oral Once a day for 90 days Active Social History Sex Assigned At : Social History Observation Description Sex Assigned At Female Vital Signs Blood pressure systolic 125 mm Hg 07/26/19 25 Blood pressure diastolic 85 mm Hg 025 Heart Rate 83 /min 07/26/2024 Height 62.00 in 07/26/2024 Weight 182 lbs 07/26/2024 BMI 33.28 kg/m2 07/26/2024 Height-cm 157.48 cm 07/26/2024 Weight-kg 82.55 kg 07/26/2024 Encounters Encounter Location Date Provider Diagnosis [facility] [email or web address] [facility] [address] [place] [address] 07/26/2024 Valerie Rodrigez Major depressive disorder, recurrent, mild F33.0 ; Generalized anxiety disorder F41.1 ; Sleep apnea, unspecified G47.30 ; Cannabis dependence, uncomplicated F12.20 and On snf drug therapy Z79.899 Assessments Encounter Date Diagnosis (ICD Code) Assessment Notes Treatment Notes Treatment Clinical Notes Section Notes 07/26/2024 Major depressive disorder, recurrent, mild (ICD-10 - F33.0) 1. major depression- Lexapro 20 mg daily discuss and educated on Cymbalta help with depression and anxiety and also help with chronic pain, Cymbalta 60 mg daily in am- Therapy scheduled JENNIFER refer to therapy http_s://www.[facility].nih.gov/health /topics/mental-h ealth-medication s http_s://www.nam i.org/About-Ment al-Illness/Treat ments/Mental-Hea lth-Medications educated on all medications, benefits, side effects [...] effects including loss of libido, increased suicidal thoughts/behavio rs in children and young adults, and serotonin [...] can negatively impact mood, motivation, anxiety, sleep, focus/concentrat ion/memory (vigilance, elasticity, processing and attention); can also contribute to development of psychosis. Cannabis/marijua na information: http_s://chapin.ni h.gov/publicatio ns/drugfacts/can nabis-marijuana http_s://www.[employer]/can xjzyn-ugl-ixvaku ng-amefnygqh-hbf d/ 4. Sleep apnea-CPAP- sleep provider and PCP PCP seen for CPAP PCP sheduled and labs Discussion Notes therapy scheduled JENNIFER- 07/26/2024 Generalized anxiety disorder (ICD-10 - F41.1) 1. major depression- Lexapro 20 mg daily discuss and educated on Cymbalta help with depression and anxiety and also help with chronic pain, Cymbalta 60 mg daily in am- Therapy scheduled JENNIFER refer to therapy http_s://www.nim h.nih.gov/health /topics/mental-h ealth-medication s http_s://www.nam i.org/About-Ment al-Illness/Treat ments/Mental-Hea lth-Medications educated on all medications, benefits, side effects [...] effects including loss of libido, increased suicidal thoughts/behavio rs in children and young adults, and serotonin [...] can negatively impact mood, motivation, anxiety, sleep, focus/concentrat ion/memory (vigilance, elasticity, processing and attention); can also contribute to development of psychosis. Cannabis/marijua na information: http_s://chapin.ni h.gov/publicatio ns/drugfacts/can nabis-marijuana http_s://www.[employer]/can hltkb-fvd-dvpnhr an-glnrckhgo-gii d/ 4. Sleep apnea-CPAP- sleep provider and PCP PCP seen for CPAP PCP sheduled and labs Discussion Notes therapy scheduled JENNIFER- 07/26/2024 Sleep apnea, unspecified (ICD-10 - G47.30) 1. major depression- Lexapro 20 mg daily discuss and educated on Cymbalta help with depression and anxiety and also help with chronic pain, Cymbalta 60 mg daily in am- Therapy scheduled JENNIFER refer to therapy http_s://www.[facility] h.nih.gov/health /topics/mental-h ealth-medication s http_s://www.nam i.org/About-Ment al-Illness/Treat ments/Mental-Hea lth-Medications educated on all medications, benefits, side effects [...] effects including loss of libido, increased suicidal thoughts/behavio rs in children and young adults, and serotonin [...] can negatively impact mood, motivation, anxiety, sleep, focus/concentrat ion/memory (vigilance, elasticity, processing and attention); can also contribute to development of psychosis. Cannabis/marijua na information: http_s://chapin.ni h.gov/publicatio ns/drugfacts/can nabis-marijuana http_s://www.[employer]/can fzppy-cyn-vhldoo ag-hjqljapyd-xnw d/ 4. Sleep apnea-CPAP- sleep provider and PCP PCP seen for CPAP PCP sheduled and labs Discussion Notes therapy scheduled JENNIFER- 07/26/2024 Cannabis dependence, uncomplicated (ICD-10 - F12.20) 1. major depression- Lexapro 20 mg daily discuss and educated on Cymbalta help with depression and anxiety and also help with chronic pain, Cymbalta 60 mg daily in am- Therapy scheduled JENNIFER refer to therapy http_s://www.nim h.nih.gov/health /topics/mental-h ealth-medication s http_s://www.nam i.org/About-Ment al-Illness/Treat ments/Mental-Hea lth-Medications educated on all medications, benefits, side effects [...] effects including loss of libido, increased suicidal thoughts/behavio rs in children and young adults, and serotonin [...] can negatively impact mood, motivation, anxiety, sleep, focus/concentrat ion/memory (vigilance, elasticity, processing and attention); can also contribute to development of psychosis. Cannabis/marijua na information: http_s://chapin.ni h.gov/publicatio ns/drugfacts/can nabis-marijuana http_s://www.[employer]/can xzbkh-zrz-gvaqfw te-lzaslxznk-xfq d/ 4. Sleep apnea-CPAP- sleep provider and PCP PCP seen for CPAP PCP sheduled and labs Discussion Notes therapy scheduled JENNIFER- 07/26/2024 On snf drug therapy (ICD-10 - Z79.899) 1. major depression- Lexapro 20 mg daily discuss and educated on Cymbalta help with depression and anxiety and also help with chronic pain, Cymbalta 60 mg daily in am- Therapy scheduled JENNIFER refer to therapy http_s://www.[facility] h.nih.gov/health /topics/mental-h ealth-medication s http_s://www.nam i.org/About-Ment al-Illness/Treat ments/Mental-Hea lth-Medications educated on all medications, benefits, side effects [...] effects including loss of libido, increased suicidal thoughts/behavio rs in children and young adults, and serotonin [...] can negatively impact mood, motivation, anxiety, sleep, focus/concentrat ion/memory (vigilance, elasticity, processing and attention); can also contribute to development of psychosis. Cannabis/marijua na information: http_s://chapin.ni h.gov/publicatio ns/drugfacts/can nabis-marijuana http_s://www.[employer]/can htifx-soa-iqxcdq xg-tcypmucjo-ibi d/ 4. Sleep apnea-CPAP- sleep provider and PCP PCP seen for CPAP PCP sheduled and labs Discussion Notes therapy scheduled JENNIFER- Plan Of Treatment Medication Medication Name Sig Start Date Stop Date Notes DULoxetine HCl 60 MG 1 capsule Oral Once a day for 90 days Escitalopram Oxalate 20 MG 1 tablet Oral Once a day for 90 days Next Appt Details Follow Up: 3 Months, Reason: medication follow up Progress Notes * KRISTAL GARCIA MCMBERNAOB: 1960 (64 yo F)Acc No.[id number]:07/26/2024 Patient: KRISTAL TAM MCMAHON Provider: CHEMA IVEY :1960 A ge:64 Y S ex:Female Date:07/26/2024 Address:[address] [place] [address], [id number] Pcp:Rhea James MD Subjective: * Chief Complaints: * 1 . Follow-up. * HPI: D epression screening: PHQ-9 L ittle interest or pleasure in doing things S everal days, F eeling down, depressed, or hopeless S everal days, T rouble falling or staying asleep, or sleeping too much N ot at all, F eeling tired or having little energy S everal days, P oor appetite or overeating S everal days, F eeling bad about yourself or that you are a failure, or have let yourself or your family down N early every day, T rouble concentrating on things, such as reading the newspaper or watching television N ot at all, M oving or speaking so slowly that other people could have noticed; or the opposite, being so fidgety or restless that you have been moving around a lot more than usual N ot at all, T houghts that you would be better off or of hurting yourself in some way N ot at all, T otal Score 7 , I nterpretation M ild Depression. I ntervention D epression Screening Findings P ositve, F ollow-Up for Depression M ental health treatment assessment, Patient follow-up to return when and if necessary, S uicide Risk Assessment Performed , Additional Evaluation for Depression P sychiatric interview and evaluation, N urvashi of the standardized tool used for adult depression screening: P atohiohealth Health Questionnaire (PHQ-9).? This is a 64 year old white female here to follow up depression, anxiety, sleep issues, since last visit, I been doing ok, I still have agitation and anger over little things like not able to check in today and I finally got appt for therapy with Zahra 09/28, getting ready to have treatment next week, and daughter getting a divorce just got 03/29 and she is moving in with us, they was together 9 years before , and they was living in [place] and she was visiting us and got a text from him he wanted a divorce, her dog is what stress me out, with bathroom in house. I am so tired and sleep been ok I smoke cannabis to fall asleep I know it is not good I am bored and be home with his cancer for 3 months, problems with memory, DM PCP prescribed me rx and not using it related to cost I need to let PCP know, I am not taking any rx for DM, I have had labs and I am doing better eating, A1C 6. something I saw ENT and 5.9 A1c, I do not have to test sugar, I feel sad, down, hopeless and helpless I am just unhappy over everything and with being home and he follows me around house and I feel like I have no purpose, I do not like to be around people I am inververt and I like to walk and help mental health and not able to weather I need knee surgery also, I have a lot issues from past to deal with also, medication helps, no s/e, it is just everything going wrong at once, son at home and not work, and he stress me out, no psychosis, no delusions, no deon, no paranoia, no SI/HI, denies SI/HI no plans or intent no thoughts harm to self or others, no past attempts, FH brother- commit- gun shot age [age] years old, no psychiatric hospital, no weapons in home no self cutting or self harm, ETOH- occasional smoking- former labs- PCP and Endo drugs- cannabis Son Autism dxn with prostrate cancer also recently and going to have 50 sessions of radiation medical DM - seeing a planimeter operator, See ENT, Headaches and sinus, knee pain CPAP Deon Reported bypatient.Notes:denies Psychosis Reported bypatient.Notes:denies Psychotherapy Intervention Reported bypatient.Notes: Marriage therapy 23 years ago when moved from [place] to [facility] business is in [place] Suicide AssessmentReported bypatient.Spectrum:#0 of suicidal attempts; family history of suicide (1 brother commit); previous hospitalization for psychiatric condition Notes:denies SI/HI no plans or intent no thoughts harm to self or others, no past attempts, FH brother- commit- gun shot age [age] years old, no psychiatric hospital, no weapons in home no self cutting or self harm,. D epression Screening: BJ-7 (2018 Edition) F eeling nervous, anxious, or on edge?Nearly every day, N ot being able to stop or control worrying N early every day, W orrying too much about different things N early every day, T rouble relaxing N early every day, B eing so restless that it is hard to sit still N early every day, B ecoming easily annoyed or irritable N early every day, F eeling afraid as if something awful might happen N early every day, T otal BJ-7 Score 2 1, I nterpretation of Total ( 15 and over) Severe. * ROS: P dawood reports frequent diarrhea (IBS) but reports no abdominal pain, no nausea, no vomiting, no constipation, less appetite, weight loss and no GERD. She reports no difficulty urinating;sling placed - hx bladder issues. S he reports arthralgias/joint pain, back pain, hips and knees and neck pain but reports no muscle aches, no muscle weakness, no swelling in the extremities, and no difficulty walking;OA and DDD. She reported depression, sleep disturbances (CPAP), and anxiety but reports feeling safe in a relationship, no alcohol abuse, no hallucinations, no suicidal thoughts, no mood swings, no memory loss, and no agitation. She reports no fever, no significant weight gain, and reported weight loss. She reports wears glasses S he reports no chest pain, reported shortness of breath with anxiety no palpitations, no known heart murmur, and no ankle swelling. She reports no cough S he reports no loss of consciousness, no weakness, no numbness, no seizures, no dizziness, no migraines, no headaches, no tremor, no gait dysfunction, and no paralysis. S he reports no fatigue. P erformance Met: N ormal blood pressure reading documented, follow-up not required ( G8783). * Medical History: P roblems: Cannabis dependence, Chronic pain, Generalized anxiety disorder, Major depressive disorder, Mild recurrent major depression, Sleep apnea, ,. * Social History: M igrated Social History: M igrated Social History: Alcohol Intake: Occasional 10/24/2023,Tobacco Years: Former smoker 09/27/2023. * Medications: T aking Escitalopram Oxalate 20 MG Tablet 1 tablet Oral Once a day , Taking Losartan Potassium-HCTZ 100-12.5 MG Tablet Oral , Taking ALPRAZolam 0.5 MG Tablet Oral , Taking Latanoprost 0.005 % Solution Ophthalmic , Taking Ondansetron 4 MG Tablet Disintegrating Oral , Taking DULoxetine HCl 60 MG Capsule Delayed Release Particles 1 capsule Oral Once a day , Not-Taking HYDROcodone-Acetaminophen 5-325 MG Tablet Oral , Not-Taking Escitalopram Oxalate 10 MG Tablet Oral , Medication List reviewed and reconciled with the patient * Allergies: N .K.D.A. Objective: * Vitals: B P:125/85mm Hg, HR:83/min, Wt:182lbs, Wt-k.55 kg, Ht: 62.00 in, Ht-cm: 157.48 cm, BMI:33.28Index, Body Surface Area: 1.9. * Examination: P sychiatry: Appearance: w ell-groomed, well-nourished, appears stated age. Abnormal body movements: n one. Affect / mood: a ppropriate, full range. Aggression: l ow. Anger control: g ood. Attention: g ood. Attitude: c ooperative. Gait s teady. Homicidal ideation: n one. Suicidal ideation: n one. Memory status: n o impairment. Degree of awareness of surroundings: w ithin normal limits.? Delusions: n o. Hallucinations: n o. Impulse control: g ood. Insight: g ood. Intellectual functioning: a verage. Comprehension - Intellectual function: a verage. Judgement: g ood. Orientation: a wake, alert and oriented x 3. Perceptual disorders: n o perceptual disorder noted. Psychomotor activity: w ithin normal range. Sexual impulse control: g ood. Speech / language: a ppropriate pitch/modulation, clear and coherent, normal rate, volume, and articulation (RVR), proper grammar used. Thought content: a ppropriate. Thought process: i ntact. Assessment: * Assessment: 1. M ajor depressive disorder, recurrent, mild - F33.0 (Primary) 2 . G eneralized anxiety disorder - F41.1 3 . S leep apnea, unspecified - G47.30 ? 4 . C annabis dependence, uncomplicated - F12.20 5 . O n snf drug therapy - Z79.899 1. major depression- Lexapro 20 mg daily discuss and educated on Cymbalta help with depression and anxiety and also help with chronic pain, Cymbalta 60 mg daily in am- Therapy scheduled JENNIFER refer to therapy http_s://www.nimh.nih.gov/health/topics/txgsmp-vjztzs-eftxpyhxyvf http_s://www.[facility].org/Hoiyw-Fnclva-Fvjcgok/Treatments/Wtuuge-Brvnic-Vyseimlnpzg educated on all medications, benefits, side effects [...] can negatively impact mood, motivation, anxiety, sleep, focus/concentration/memory (vigilance, elasticity, processing and attention); can also contribute to development of psychosis. Cannabis/marijuana information: http_s://chapin.nih.gov/publications/drugfacts/cannabis-marijuana http_s://www.[employer]/pwfusivt-eba-tpnszagc-marijuana-adhd/ 4. Sleep apnea-CPAP- sleep provider and PCP PCP seen for CPAP PCP sheduled and labs Discussion Notes therapy scheduled JENNIFER- Plan: * Treatment: * Procedure Codes: G 8783 NORMAL BP READING DOC F/U NOT RQR, 71065 BEHAV ASSMT W/SCORE & DOCD/STAND INSTRUMENT, G8431 CLIN DEPRESSION SCREEN DOC, 80920 BEHAV ASSMT W/SCORE & DOCD/STAND INSTRUMENT, G8752 MOST RECENT SYSTOLIC BP < 140MM HG, G8754 MOST RECENT DIASTOLIC BP < 90MM HG, G2211 VISIT COMPLEXITY INHERENT TO ONGOING CARE RELATED TO A PATIENT'S SINGLE, SERIOUS CONDITION OR A COMPLEX CONDITION, G8431 CLIN DEPRESSION SCREEN DOC * Preventive Medicine: Counseling: A dvance Care Planning D ate of last Advance Care Plannin 07/26/2024 ____ MIPSLIVING Will and trust POA. * Follow Up: 3 Months (Reason: medication follow up) * Billing Information: * Visit Code: 27005 OFFICE OUTPATIENT VISIT 25 MINUTES DETAILED HISTORY AND EXAM/MODERATE MEDICAL DECISION MAKING. * Procedure Codes: G8783 NORMAL BP READING DOC F/U NOT RQR. 15120 BEHAV ASSMT W/SCORE & DOCD/STAND INSTRUMENT. G8431 CLIN DEPRESSION SCREEN DOC. 66696 BEHAV ASSMT W/SCORE & DOCD/STAND INSTRUMENT. G8752 MOST RECENT SYSTOLIC BP < 140MM HG. G8754 MOST RECENT DIASTOLIC BP < 90MM HG. G2211 VISIT COMPLEXITY INHERENT TO ONGOING CARE RELATED TO A PATIENT'S SINGLE, SERIOUS CONDITION OR A COMPLEX CONDITION. G8431 CLIN DEPRESSION SCREEN DOC. * ING TECHNICIAN Sign off status: Completed true * Provider: CHEMA IVEY Date: 0 07/26/2024 Generated for Lissette winston/Kaushik/Shweta on: 0 09/04/2024 11:59 AM CDT History and Physical Notes * HPI (History of Present Illness) Category Sub-Category Detail Notes Category Not es Depression screening PHQ-9 Little inte rest or pleasure in doing things: Several days This is a 64 year old white female here to follow up depression, anxiety, sleep issues, since last visit, I been doing ok, I still have agitation and anger over little things like not able to check in today and I finally got appt for therapy with Zahra 09/28, getting ready to have treatment next week, and daughter getting a divorce just got 03/29 and she is moving in with us, they was together 9 years before , and they was living in [place] and she was visiting us and got a text from him he wanted a divorce, her dog is what stress me out, with bathroom in house. I am so tired and sleep been ok I smoke cannabis to fall asleep I know it is not good I am bored and be home with his cancer for 3 months, problems with memory, DM PCP prescribed me rx and not using it related to cost I need to let PCP know, I am not taking any rx for DM, I have had labs and I am doing better eating, A1C 6. something I saw ENT and 5.9 A1c, I do not have to test sugar, I feel sad, down, hopeless and helpless I am just unhappy over everything and with being home and he follows me around house and I feel like I have no purpose, I do not like to be around people I am inververt and I like to walk and help mental health and not able to weather I need knee surgery also, I have a lot issues from past to deal with also, medication helps, no s/e, it is just everything going wrong at once, son at home and not work, and he stress me out, no psychosis, no delusions, no deon, no paranoia, no SI/HI, denies SI/HI no plans or intent no thoughts harm to self or others, no past attempts, FH brother- commit- gun shot age [age] years old, no psychiatric hospital, no weapons in home no self cutting or self harm, ETOH- occasional smoking- former labs- PCP and Endo drugs- cannabis Son Autism dxn with prostrate cancer also recently and going to have 50 sessions of radiation medical DM - seeing a planimeter operator, See ENT, Headaches and sinus, knee pain CPAP Deon Reported bypatient.Notes:denies Psychosis Reported bypatient.Notes:denies Psychotherapy Intervention Reported bypatient.Notes: Marriage therapy 23 years ago when moved [place] to [facility] business is in [place] Suicide AssessmentReported bypatient.Spectrum:#0 of suicidal attempts; family history of suicide (1 brother commit); previous hospitalization for psychiatric condition Notes:denies SI/HI no plans or intent no thoughts harm to self or others, no past attempts, FH brother- commit- gun shot age [age] years old, no psychiatric hospital, no weapons in home no self cutting or self harm, Feeling down, depressed, or hopeless: Se veral days Trouble falling or staying asleep, or sl eeping too much: Not at all Feeling tired or having little energy: S everal days Poor appetite or overeating: Several day s Feeling bad about yourself o r that you are a failure, or have let yourself or your family down: Nearly every day Trouble concentrating on thi ngs, such as reading the newspaper or watching television: Not at all Moving or speaking so slowly that other people could have noticed; or the opposite, being so fidgety or restless that you have been moving around a lot more than usual: Not at all Thoughts that you would be b shaila off or of hurting yourself in some way: Not at all Total Score: 7 Interpretation: Mild Depression Intervention Depression Screening Findings: P ositve Follow-Up for Depression: [facility] treatment assessment, Patient follow-up to return when and if necessary Suicide Risk Assessment Performed: Additional Evaluation for De pression: Psychiatric interview and evaluation Name of the standardized too l used for adult depression screening:: Patient Health Questionnaire (PHQ-9) Depression Screening BJ-7 (2018 Edition) Feelin g nervous, anxious, or on edge: Nearly every day Not being able to stop or control worryi ng: Nearly every day Worrying too much about different things : Nearly every day Trouble relaxing: Nearly every day Being so restless that it is hard to sit still: Nearly every day Becoming easily annoyed or irritable: Ne angelica every day Feeling afraid as if something awful jamil ht happen: Nearly every day Total BJ-7 Score: 21 Interpretation of Total: (15 and over) S evere Examination Category Sub-Category Detail Notes Category Not es Psychiatry Appearance: well-groomed, we ll-nourished, appears stated age Attitude: cooperative Psychomotor activity: within normal rang e Abnormal body movements: none Attention: good Degree of awareness of surroundings: wit hin normal limits Orientation: awake, alert and mayo ented x 3 Affect / mood: appropriate, full ra nge Speech / language: appropriate pitch/mo dulation, clear and coherent, normal rate, volume, and articulation (RVR), proper grammar used Insight: good Judgement: good Thought process: intact Thought content: appropriate Perceptual disorders: no perceptual diso rder noted Aggression: low Anger control: good Suicidal ideation: none Homicidal ideation: none Intellectual functioning: average Impulse control: good Sexual impulse control: good Memory status: no impairment Delusions: no Hallucinations: no Comprehension - Intellectual function: a verage Gait steady
--- OUTSIDE RECORDS SUMMARY | 2024-09-04 12:00 | XMS_ITS | Encounter Summary ---
Author Organization [facility] Address 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
--- OUTSIDE RECORDS SUMMARY | 2024-09-04 12:00 | XMS_ITS | Encounter Summary ---
Author Organization [facility] Address 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
--- OUTSIDE RECORDS SUMMARY | 2024-09-04 12:00 | XMS_ITS | Clinical Summary ---
Author Organization [facility] Address [address] [place] [address] Care Team Providers Care Batch Analyst Name Role Phone Rhea James MD Primary Care Provider [phone] Social History Tobacco Use Types Packs/Day Years Used Date Smoking Tobacco: Never Assessed Comments Unknown Sex and Gender Information Value Date Recorded Sex Assigned at Not on file Legal Sex Female 3:49 PM CDT Gender Identity Not on file Sexual Orientation Not on file Plan of Treatment Health Maintenance Due Date Last Done Comments Colorectal Cancer Screening Colonoscopy (10 Years) 1960 Hepatitis C 1976 DTaP, Tdap and Td Vaccines ( 1 - Tdap) 1977 Mammogram Screening 1998 Zoster Vaccines (1 of 2) 2008 Dexa Scan (General) 2023 Pneumococcal Vaccine: 65+ Years (1 of 1 - PCV) 2023 COVID-19 Vaccine (3 - 2023-2 5 season) 2024 09/14/2020, 08/19/2020 RSV Immunization or 60+ Years (1 - 1-dose 75+ series) 2033 Meningococcal B Vaccine Aged Out No l onger eligible based on patient's age to complete this topic Meningococcal Vaccine Aged Out No monique jerzy eligible based on patient's age to complete this topic RSV Immunizations Under 20 Months Aged Out No longer eligible b ased on patient's age to complete this topic Insurance MEDICARE Care Teams Batch Analyst Relationship Specialty Start Date End Date Rhea James MD [address] [place] [address] [place] [address] PCP - General FAMILY PRACTICE 02/12/21
== END 2024-09-04 10:45 | disposition home or self-care (01) ==
PROVIDERS: PCP Nurse Practitioner Family; Visit Provider Obstetrics & Gynecology
DX: R92.8 Other abnormal and inconclusive findings on diagnostic imaging of breast (principal)
CPT/HCPCS: 76642; 77062; 77066; G0279

== ENCOUNTER 2024-09-07 09:27 | Outpatient (CLI) | payer MEDICARE, OTHER, SELFPAY ==
--- OUTSIDE RECORDS SUMMARY | 2024-09-07 09:36 | XMS_ITS | Clinical Summary ---
Author Organization [facility] Address [address] [place] [address] Care Team Providers Care Intelligence Director Name Role Phone Kimberly Stiles Ty [facility] Primary Care Provider + Source Comments [facility],non-owned Affiliates and Associated Physician Practices is amultiple site organization consisting of ambulatory clinics and hospital sitesin [place], [place], [place] and [place]. This disclosure is being madepursuant to the Care Everywhere program and may not contain all information available regarding this patient. Last updated 18.[facility] Allergies Active Allergy Reactions [...] Type Department Care Team Description 07/26/2024 Telephone [facility] - Endocrinology [address] [place] [address] Niya Dominguez CPhT Patient Assistance Program 06/26/2024 Telephone [facility] - Endocrinology [address] [facility] [facility] [address] [place] [id number] Niya Dominguez CPhT Medication Prior Auth Request from Last 3 Months Social History Tobacco Use Types Packs/Day Years Used Date Smoking Tobacco: Never Assessed Sex and Gender Information Value Date Recorded Sex Assigned at Not on file Gender Identity Not on file Sexual Orientation Not on file Last Filed Vital Signs Vital Sign Reading Time Taken Comments Blood Pressure 126/76 05/04/2024 9:21 AM ULTRASONOGRAPHER Pulse 96 05/04/2024 9:21 AM ULTRASONOGRAPHER Temperature - - Respiratory Rate - - Oxygen Saturation 96% 05/04/2024 9:21 AM ULTRASONOGRAPHER Inhaled Oxygen Concentration - - Weight 83.3 kg (183 lb 11.2 oz) 11:00 AM ULTRASONOGRAPHER Standing Height 158.8 cm (5' 2.5 ) 05/22/2024 11 :00 AM ULTRASONOGRAPHER Body Mass Index 33.06 05/22/2024 11:00 AM ULTRASONOGRAPHER Plan of Treatment Upcoming Encounters Date Type Department Care Team (Late st Contact Info) Description 11/02/2024 9:30 AM CDT Office Visit [facility] - Endocrinology [address] [place] [address] Jose Ovalles MD [address] [place] [address] Health Maintenance Due Date Last [...] COVID-19 VACCINE (1 - 2023- season) 2024 DEPRESSION SCREENING 06/06/2024 INFLUENZA VACCINE (Season Ended) 2025 07/07/2023, 03/03/2022, 02/12/2021, Additional history exists SCREENING FOR DIABETES 05/04/2027 , 05/04/2024, 05/04/2024 [...] OF CARE (AMB) Routine 05/04/2024 9:48 AM ULTRASONOGRAPHER Type 2 diabetes mellitus without complication, without long-term current use of insulin from Last 3 Months or Most Recently Relevant to Health Maintenance Results * HEMOGLOBIN A1C - POINT OF CARE (AMB) (05/04/2024 9:48 AM ULTRASONOGRAPHER) Hemoglobin A1c POCT 5.9 % Expiration Date 01/25 Lot # [id number] QC Verified Yes Yes Blood BLOOD SPECIMEN / Unknown 05/04/2024 9:48 AM ULTRASONOGRAPHER Jose Ovalles MD LAB - POINT OF CARE ORDERABLES from Last 3 Months or Most Recently Relevant to Health Maintenance Care Teams Intelligence Director Relationship Specialty Start Date End Date Kimberly Stiles, MEDICAL STAFF MANAGER-PROFESSOR OF [employer] [address] [place] [id number] PCP - General Family Medicine 05/04/24
--- OUTSIDE RECORDS SUMMARY | 2024-09-07 09:37 | XMS_ITS | Referral Summary ---
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
--- OUTSIDE RECORDS SUMMARY | 2024-09-07 09:37 | XMS_ITS | Clinical Summary ---
Author Organization [facility] Address [address] [place] [address] Care Team Providers Care Headwaiter/Headwaitress Name Role Phone Rhea James MD Primary Care Provider [phone] Social History Tobacco Use Types Packs/Day Years [...] 1998 Zoster Vaccines (1 of 2) 2008 Annual Medicare Wellness Visit 2023 Dexa Scan (General) 2023 Pneumococcal Vaccine: 65+ [...] complete this topic Insurance MEDICARE Care Teams Headwaiter/Headwaitress Relationship Specialty Start Date End Date Rhea James MD [address] [place] [address] [place] [address] PCP - General FAMILY PRACTICE 02/12/21
--- OUTSIDE RECORDS SUMMARY | 2024-09-07 09:37 | XMS_ITS | Encounter Summary ---
Author Organization [facility] Address [address] [place] [address] Care Team Providers Care Proposition Player Name Role Phone Zane Soriano MD Primary Care Provider [phone] Encounter Details Date Type Department Care Team [...] on file Legal Sex Female 4:40 AM SIGNALMAN Gender Identity Not on file Sexual Orientation Not on file documented as of this encounter Plan of Treatment Not on file documented as of this encounter Visit Diagnoses Diagnosis Elderly multigravida with antepartum condition or complication- Primary documented in this encounter Care Teams Proposition Player Relationship Specialty Start Date End Date Zane Soriano MD PCP - General Internal Medicine 05/01/12 documented as of this encounter
--- OUTSIDE RECORDS SUMMARY | 2024-09-07 09:37 | XMS_ITS | Clinical Summary ---
Author Organization [facility] [address] [place] [address] Care Team Providers Care Customer Relations Representative Name Role Phone Rhea James MD Primary [...] on file Legal Sex Female 11:18 AM DATABASE ARCHITECT Gender Identity Not on file Sexual Orientation [...] BLUE ACCESS OOS ANTHEM ACCESS Care Teams Customer Relations Representative Relationship Specialty Start Date End Date Rhea James MD PCP - General 09/03/16
--- OUTSIDE RECORDS SUMMARY | 2024-09-07 09:37 | XMS_ITS | Encounter Summary ---
Author Organization [facility] Address 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
--- OUTSIDE RECORDS SUMMARY | 2024-09-07 09:37 | XMS_ITS | Clinical Summary ---
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 Gender Identity Not on file Sexual Orientation Not on file Last Filed Vital Signs Vital Sign Reading Time Taken Comments Blood Pressure 139/82 05/01/2012 1:55 PM AUTOMOTIVE SERVICE WRITER Pulse - - Temperature - - Respiratory Rate - - Oxygen Saturation - - Inhaled Oxygen Concentration - - Weight 83.5 kg (184 lb) 05/01/2012 1:55 PM AUTOMOTIVE SERVICE WRITER Height 158.8 cm (5' 2.5 ) 05/01/2012 1:55 PM CS T Body Mass Index 33.12 05/01/2012 1:55 PM AUTOMOTIVE SERVICE WRITER Plan of Treatment Health Maintenance Due Date [...] OR WO CAD Routine 05/01/2012 3:58 PM AUTOMOTIVE SERVICE WRITER Abnormal mammogram from Last 3 Months or Most Recently Relevant to Health Maintenance Results * MAMMO DIGITAL DIAG UNI LEFT (05/01/2012 3:58 PM AUTOMOTIVE SERVICE WRITER) Anatomical Region Laterality Modality Breast Left Mammography 05/01/2012 3:58 PM AUTOMOTIVE SERVICE WRITER Impressions 05/02/2012 8:41 AM AUTOMOTIVE SERVICE WRITER IMPRESSION: Technically successful ultrasound-guided core biopsy with tissue marker placement. Narrative 05/02/2012 8:41 AM AUTOMOTIVE SERVICE WRITER LEFT BREAST ULTRASOUND. 05/01/12 HISTORY: Patient has [...] BCBS BLUE ACCESS/TRUE BLUE PPO Care Teams Cotton Ginner Helper Relationship Specialty Start Date End Date Zane Soriano MD PCP - General Internal Medicine 05/01/12
[2024-09-07 12:11] LABS: Basophils Percent Auto 0.3 % (0.2-1.2); Eosinophils Absolute Auto 0.2 K/mm3 (0-0.3); Eosinophils Percent Auto 1.7 % (0-4.4); Hematocrit 45.4 % (37.0-47.0); Hemoglobin 14.8 g/dL (12.0-15.0); Immature Granulocyte Absolute 0.04 K/mm3 (0.00-0.031); Immature Granulocyte Percent A 0.4 % (0-0.5); Lymphocytes Absolute Auto 2.24 K/mm3 (0.9-3.2); Lymphocytes Percent Auto 24.2 % (18.3-44.2); Mean Corpuscular HGB Conc 32.6 g/dl (32-36); Mean Corpuscular Hemoglobin 29.7 pg (26-34); Monocytes Absolute Auto 0.7 K/mm3 (0.1-0.6); Monocytes Percent Auto 7.1 % (2.6-8.5); Neutrophils Absolute Auto 6.1 K/mm3 (1.3-6.7); Neutrophils Percent Auto 66.3 % (45.5-73.1); Platelet Count Result 330 k/mm3 (150-375); Red Blood Count 4.99 M/mm3 (4.2-5.4); Red Cell Distribution Width 12.9 % (11.5-14.5); White Blood Count 9.3 K/mm3 (4.5-10.0)
[2024-09-07 12:20] LABS: Albumin Level 4.5 g/dL (3.5-5.1)
[2024-09-07 12:31] LABS: Hemoglobin A1C 5.7 % (<5.7)
[2024-09-07 12:42] LABS: Urine Cotinine NEGATIVE
[2024-09-07 13:29] LABS: MRSA (PCR) NOT DETECTED (NOT DETECTE)
== END 2024-09-07 09:28 | disposition home or self-care (01) ==
LOC: ANHSURGERY 09:31
PROVIDERS: PCP Nurse Practitioner Family; Visit Provider Orthopaedic Surgery
DX: M16.12 Unilateral primary osteoarthritis, left hip (principal); Z01.818 Encounter for other preprocedural examination
CPT/HCPCS: 80307; 82040; 83036; 85025; 87641

== ENCOUNTER 2024-09-25 03:39 | Day surgery (SDC) | payer MEDICARE, OTHER, SELFPAY ==
--- NOTE | 2024-09-07 09:53 | PC.NURSE ---
Report to the Outpatient Waiting Room, entrance under the green pavilion located off [facility], at time _6am on date _09/25/24 . Planned Procedure Time: __7:30 am .? Time changes happen often and if your time is changed the preop area will call you the afternoon before. - You and your visitor will be asked to self-screen and do not enter if you have any COVID symptoms. Please call surgeon if you need to reschedule. - A mask is optional within the hospital at this time. Patients may have clear liquids (water, carbonated beverages, clear teas, apple juice) until 3 hours prior to surgery( 4:30am) with a maximum of 20 ounces. - No food from midnight until time of surgery and no smoking, or chewing tobacco (or any form of nicotine). No chewing gum, candy or mints. - Take only the following medications with a SIP of water on the morning of surgery: __DULOXETINE, DO NOT STOP ANY OF YOUR OTHER PRESCRIPTION MEDICATIONS PRIOR TO SURGERY EXCEPT THE FOLLOWING Hold all vitamins and supplements for 3 days per anesthesiologist. Medications to discontinue per physician ___NONE MAY TAKE TYLENOL IF NEEDED FOR PAIN Please no make-up, nail divehi, hairspray, perfume, deodorant, or body powder the day of surgery.? No jewelry (including any body piercings) or valuables the day of surgery, leave them at home.? Please take a shower or bath the night before, or the morning of, surgery with an antibacterial soap.? Wear comfortable, loose fitting clothing.? Children are encouraged to wear pajamas. - Jewelry must be removed prior to entering the operating room.? Rings and piercings that are not removed may be cut off. - The hospital will not accept responsibility for valuables.? - Please leave all valuables, including medications, at home the day of surgery. If you are going home after surgery, a licensed line haul truck driver must drive you home.? - NO public transportation without another adult if you receive anesthesia. - We recommend that an adult stay with you for 24 hours following discharge. - We also recommend that you do not drive, make important decision, drink alcoholic beverages, or take any drugs that were not prescribed by your health care provider for at least 24 hours after your discharge time. Follow any additional instructions given to you from your surgeon. VERBAL AND WRITTEN instructions given to __PATIENT and asked if any additional questions and then verbalized understanding. Patient advised to call surgeon office or pre surgery nurse liaison [phone] if any additional questions.
[2024-09-07 09:56] VITALS: BMI 32.8
[2024-09-07 10:45] VITALS: BP 146/86; PULSE 72; RESP 18; TEMP 36.7; O2SAT 97
--- NOTE | 2024-09-24 14:27 | WPDANESEPPF ---
Anes - Initial Pre Proc Eval Procedure: Operation Date: 09/25/24 07:30 Proposed Procedures p Left Total Hip Arthroplasty - Miki Johnson MD Date/Time: 09/24/24 14:27 Surgeon: Miki Johnson MD Pre Op Diagnosis: Prim O A Lt Hip Patient Data Age: 64 Gender: F Height: 1.57 m Weight: 81.5 kg Last Vital Signs Temp 36.7 C 09/07/24 10:45 Pulse 72 09/07/24 10:45 Resp 18 09/07/24 10:45 BP 146/86 H 09/07/24 10:45 Pulse Ox 97 09/07/24 10:45 O2 Del Method Room Air 09/07/24 10:45 Allergies Allergy/AdvReac Type Severity Reaction Status Date / Time codeine Allergy Severe Nausea and Verified 09/25/24 06:46 Vomiting Home Medications ?Medication ?Instructions ?Recorded ?Confirmed ?Type losartan 100 1 tablet PO HS 08/05/22 09/25/24 History mg-hydrochlorothiazide 25 mg tablet escitalopram oxalate 20 mg tablet 20 mg PO HS 03/08/23 09/25/24 History duloxetine 60 mg capsule,delayed 60 mg PO DAILY 04/16/24 09/25/24 History release Lactobacillus rhamnosus GG 10 1 cap PO DAILY 09/07/24 09/25/24 History billion cell capsule (Culturelle) acetaminophen 500 mg tablet 1,000 mg PO Q6H PRN pain 09/07/24 09/07/24 History (Acetaminophen Pain Relief) cetirizine 10 mg tablet (24Hour 10 mg PO DAILY 09/07/24 09/25/24 History Allergy) digestive enzymes 1 cap PO DAILY 09/07/24 09/25/24 History latanoprost 0.005 % eye drops 1 drp EACH EYE QPM 09/07/24 09/25/24 History psyllium husk 3.4 gram/5.4 gram 1 tsp PO DAILY 09/07/24 09/25/24 History oral powder (Metamucil) Patient hx anesthesia problems: post op nausea/vomiting Family hx anesthesia problems: none Results Review: All pre-operative results and documents have been reviewed as part of the pre-operative evaluation. [facility] Past Medical History Medical History Osteoarthritis of hips, bilateral Glaucoma PONV (postoperative nausea and vomiting) Asthma RAINER (obstructive sleep apnea) History of COVID-19 06/2020 Calcific tendinitis of left shoulder Open angle primary glaucoma GERD (gastroesophageal reflux disease) Complete miscarriage Hypercholesterolemia Hypertension IBS (irritable bowel syndrome) Surgical History Surgical History Left rotator cuff tear Left rotator cuff repair with DCE March 21, 2023 Arthritis of left acromioclavicular joint Left DCE with rotator cuff repair on March 21, 2023 Arthritis of right acromioclavicular joint Distal clavicle excision January 25, 2022 Calcific tendinitis of right shoulder Debridement rotator cuff January 25, 2022 Cancer malignant melanoma excised right shoulder area H/O foot surgery [place] teeth removed Cholecystectomy planned H/O: hysterectomy Family History Family History Father Liver disease Mother Lung cancer Brain cancer Sibling Heart disease Social History Social History (Updated 09/20/24 @ 08:29 by Marizol Matthew CMA) Smoking packs per day: 1 Smoking cigarettes per day: 20.0 Years smoked: 20 Smoking pack-years: 20.00 Smoking status: Former smoker Tobacco type: cigarettes Second hand tobacco smoke exposure: No Smoking end date: 06/06/94 Additional smoking assessment comments: DENIES ANY FORM OF TOBACCO USE Alcohol intake: current Drinks per week: 1 Alcohol use details: 2 PER MONTH Substance use: current Substance use type: marijuana Other substance usage details: daily Last use: 09/06/24 Do You Feel Safe in your Home?: Yes Lack of Transportation: No Lack of Food: Never True Current Housing: Decline to Answer Concerned About Future Housing: Decline to Answer Difficulty Paying Gas/Electric Bills: Decline to Answer Difficulty Paying for Meds: Decline to Answer Currently Unemployed: Decline to Answer Education: Decline to Answer Difficulty w/ Childcare or Family Care: Decline to Answer Living arrangements: with family Gender identity (if verbalized by the patient): Female Spiritual care concerns: No Anes - Eval Final PreProcedure Day of Procedure 09/24/24 14:27 Patient weight: obese Heart: regular rate and rhythm Lungs: clear to auscultation Airway: Mallampati scale class II Neurological: alert and oriented Last oral intake: >/= 8 hours ASA classification: III Emergent: no Anesthetic plan: proceed Anesthesia type and monitoring: general ETT and standard monitoring Results Review: All pre-operative results and documents have been reviewed as part of the pre-operative evaluation. Informed Consent: The patient's anesthetic plan and its attendant risks and benefits were discussed with the patient/family/POA. Questions were solicited and answers provided to the satisfaction of the patient/family/POA.
[2024-09-25] VITALS (16 sets, daily range): BP systolic 93–141; BP diastolic 43–90; PULSE 80–110; RESP 14–20; TEMP 36.1–37.5; O2SAT 91–100
--- NOTE | ~2024-09-25 | XR_ITS ---
EXAMINATION: XR hip LT min 2V DATE: 09/25/2024 09:55 INDICATION: Left total hip arthroplasty TECHNIQUE: 2 views left hip FINDINGS: There is a left total hip arthroplasty in expected position. Subcutaneous gas with soft ti ssue swelling are consistent with recent surgery. IMPRESSION: 1. Recent left total hip arthroplasty. Reviewed, dictated and finalized at location A.
--- OUTSIDE RECORDS SUMMARY | 2024-09-25 03:42 | XMS_ITS ---
Author Organization [facility] [employer] [facility] Address [address] [facility] [address] [place] [address] Care Team Providers Care Paper Machine Tender Name Role Phone Rhea James MD Primary Care Provider Valerie Joe Unavailable [phone] REASON FOR VISIT Refill Medications Medication SIG (Take, Route, Fr equency, Duration) Notes Start Date End Date Status DULoxetine HCl 60 MG 1 capsule Oral Once a day for 30 days Active Social History Sex Assigned At : Social History Observation Description Sex Assigned At Female Encounters Encounter Location Date Provider Diagnosis [facility] [employer] [facility] [address] [place] [address] 09/24/2024 Valerie Rodrigez Major depressive disorder, recurrent, mild F33.0 Assessments Encounter Date Diagnosis (ICD Code) Assessment Notes Treatment Notes Treatment Clinical Notes Section Notes 09/24/2024 Major depressive disorder, recurrent, mild (ICD-10 - F33.0) Plan Of Treatment Medication Medication Name Sig Start Date Stop Date Notes DULoxetine HCl 60 MG 1 capsule Oral Once a day for 30 days Next Appt Details Provider Name:Valerie Rodrigez , 10/22/2024 08:30:00 AM, [address], [address], [place], [address], Progress Notes * KRISTAL GARCIA LISAOB: 1960 (64 yo F)Acc No.[id number]:09/24/2024 Patient: KRISTAL TAM LILLIE ALIE :1960 A ge:64 Y S ex:Female Address:[address] [place] [address], [place], [address] * Refills Refill DULoxetine HCl Capsule Delayed Release Particles, 60 MG, Oral, 30 Capsule, 1 capsule, Once a day, 30 days, Refills=0 * true * Date: Generated for Lissette winston/Kaushik/Shweta on: 0 09/25/2024 03:42 AM CDT
--- OUTSIDE RECORDS SUMMARY | 2024-09-25 03:42 | XMS_ITS | Data Portability ---
Author Organization [place] - [facility] Main Office Address [address] [place] [address] Assessment No assessment recorded. Plan of Treatment Reminders Order Date Submit Date Provider Last Modified By Organization Details Last Modified Time Details Appointments Physical/ Annual Wellness 30 2024 08:00A Rosendo Stiles NP Not available Not available Not available Lab HbA1c (hemoglob in A1c), blood 2023 024 SUSY Mackay, [address], [place], [address], 04/18/2024 07:14:03 vitamin D, 25-hydrox y, total, serum 2023 024 SUSY Mackay, [address], [place], [address], 04/18/2024 07:14:04 CBC w/ auto diff 2023 024 SUSY Mackay, [address], [place], [address], 04/18/2024 07:13:59 lipid panel, serum 2023 024 SUSY Mackay, [address], [place], [address], 04/18/2024 07:14:02 CMP, serum or plasma 2023 024 SUSY Mackay, [address], [place], [address], 04/18/2024 07:14:01 ferritin, serum or plasma 2023 SUSY Not available 08/09/2023 11:37:35 iron + total iron-bind ing capacity (TIBC), serum 2023 SUSY Not available 08/09/2023 11:37:33 CBC w/ auto diff 2023 SUSY Not available 08/09/2023 11:37:31 hepatic function panel, serum 2023 SUSY Not available 08/09/2023 11:37:32 Referral orthopedi c surgeon referral - Please call patient to schedule appointme nt. 2023 [email or web address] Miki Johnson MD, [address], [address], [place], [address], 08/30/2023 09:30:09 Procedures None recorded. Surgeries None recorded. Imaging LDCT, chest, for lung cancer screening - This pt does not qualify for a LDCT. needs Xray chest, if anything is found they can have reg CT chest. 2023 [id number], [address], [place], [address], 04/17/2024 11:25:08 XR, chest, 2 view - Please call pt to schedule 2023 [email or web address] [address] [facility], [address], [place], [address], 05/16/2024 08:45:33 Medication Orders losartan 100 mg-hydroc hlorothia zide 12.5 mg tablet 2023 [facility] #[id number], [address], [place], [place], [id number], 04/16/2024 14:26:18 alprazola m 0.5 mg tablet 2023 024 [facility] #[id number], [address] [place] [address], [id number], 04/16/2024 14:57:21 Zithromax Z-Leo 250 mg tablet 2023 024 [facility] #[id number], [address] [place] [address], [id number], 04/16/2024 14:26:20 ProAir HFA 90 mcg/actua tion aerosol inhaler 2023 024 [facility] #[id number], [address] [facility] [address] [place] [address], [id number], 04/16/2024 14:57:19 codeine 10 mg-guaife nesin 100 mg/5 mL oral liquid 2023 024 [facility] #42158, [address] [place] [address], [id number], 04/16/2024 14:57:21 escitalop clare 20 mg tablet 2022 023 [facility] [place], [address], 12/03/2022 08:57:12 Patient TargetsNo targets recorded. Patient Instructions Encounter Date Encounter Id Patient Instructions Last Modified By Organization Details Last Modified Time 10/06/2022 [id number] we discussed bilateral eustachian tube balloon dilatation but she wants to give this some thought. [email or web address] Not available 10/06/2022 12:42:09 Reason for Referral Orthopedic Surgeon Referral for Pain of bilateral knee joints Please call patient to schedule appointment. Referring Physician: Rhea James, Family Medicine, Encounter Date: 07/13/2023 Results Created Date Observation Date Name Description Value Unit Range Abnormal Flag Note LastModifiedBy Organization Detail LastModifiedTime 06/16/19 24 06/17/2023 CBC WITH DIFFE RENTI AL/PL ATELE T WBC 7.7 x10e3 /uL 3.4-10 .8 Not Available [facility] ([facility]) [address] [facility], [place], [address], 06/17/2023 08:28:17 06/16/19 24 06/17/2023 CBC WITH DIFFE RENTI AL/PL ATELE T RBC 5.31 x10e6 /uL 3.77-5 .28 above high normal Not Available [facility] ([facility]) [address] [facility], [place], [address], 06/17/2023 08:28:17 06/16/1906/17/2023 CBC WITH DIFFE RENTI AL/PL ATELE T hemoglobin 15.6 g/dL 11.1-1 5.9 Not Available [facility] ([facility]) [address] [place], [address], 06/17/2023 08:28:17 06/16/19 24 06/17/2023 CBC WITH DIFFE RENTI AL/PL ATELE T hematocrit 45.4 % 34.0-4 6.6 Not Available [facility] ([facility]) [address] [place], [address], 06/17/2023 08:28:17 06/16/19 24 06/17/2023 CBC WITH DIFFE RENTI AL/PL ATELE T MCV 86 fL 79-97 Not Available [facility] ([facility]) [address] [place], [address], 06/17/2023 08:28:17 06/16/1906/17/2023 CBC WITH DIFFE RENTI AL/PL ATELE T MCH 29.4 pg 26.6-3 3.0 Not Available [facility] ([facility]) [address] [place], [address], 06/17/2023 08:28:17 06/16/19 24 06/17/2023 CBC WITH DIFFE RENTI AL/PL ATELE T MCHC 34.4 g/dL 31.5-3 5.7 Not Available [facility] ([facility]) [address] [facility], [place], [address], 06/17/2023 08:28:17 06/16/19 24 06/17/2023 CBC WITH DIFFE RENTI AL/PL ATELE T RDW 12.9 % 11.7-1 5.4 Not Available [facility] ([facility]) [address] [facility], [place], [address], 06/17/2023 08:28:17 06/16/19 24 06/17/2023 CBC WITH DIFFE RENTI AL/PL ATELE T platelets 346 x10e3 /uL 150-45 0 Not Available [facility] ([facility]) [address] [facility], [place], [address], 06/17/2023 08:28:17 06/16/19 24 06/17/2023 CBC WITH DIFFE RENTI AL/PL ATELE T neutrophils 61 % not estab. Not Available [facility] ([facility]) [address] [facility], [place], [address], 06/17/2023 08:28:17 06/16/19 24 06/17/2023 CBC WITH DIFFE RENTI AL/PL ATELE T lymphs 27 % not estab. Not Available [facility] ([facility]) [address] [facility], [place], [address], 06/17/2023 08:28:17 06/16/19 24 06/17/2023 CBC WITH DIFFE RENTI AL/PL ATELE T monocytes 8 % not estab. Not Available [facility] ([facility]) [address] [facility], [place], [address], 06/17/2023 08:28:17 06/16/19 24 06/17/2023 CBC WITH DIFFE RENTI AL/PL ATELE T eos 3 % not estab. Not Available [facility] ([facility]) [address] [facility], [place], [address], 06/17/2023 08:28:17 06/16/19 24 06/17/2023 CBC WITH DIFFE RENTI AL/PL ATELE T basos 1 % not estab. Not Available [facility] ([facility]) [address] [facility], [place], [address], 06/17/2023 08:28:17 06/16/19 24 06/17/2023 CBC WITH DIFFE RENTI AL/PL ATELE T immature cells ELECTRICAL INSTRUMENTATION TECHNICIAN Not Available [facility] ([facility]) [address] [facility], [place], [address], 06/17/2023 08:28:17 06/16/19 24 06/17/2023 CBC WITH DIFFE RENTI AL/PL ATELE T neutrophils (absolute) 4.7 x10e3 /uL 1.4-7. 0 Not Available [facility] ([facility]) [address] [facility], [place], [address], 06/17/2023 08:28:17 06/16/19 24 06/17/2023 CBC WITH DIFFE RENTI AL/PL ATELE T lymphs (absolute) 2.1 x10e3 /uL 0.7-3. 1 Not Available [facility] ([facility]) [address] [place], [address], 06/17/2023 08:28:17 06/16/19 24 06/17/2023 CBC WITH DIFFE RENTI AL/PL ATELE T monocytes(ab solute) 0.6 x10e3 /uL 0.1-0. 9 Not Available [facility] ([facility]) [address] [place], [address], 06/17/2023 08:28:17 06/16/19 24 06/17/2023 CBC WITH DIFFE RENTI AL/PL ATELE T eos (absolute) 0.2 x10e3 /uL 0.0-0. 4 Not Available [facility] ([facility]) [address] [facility], [place], [address], 06/17/2023 08:28:17 06/16/19 24 06/17/2023 CBC WITH DIFFE RENTI AL/PL ATELE T baso (absolute) 0.1 x10e3 /uL 0.0-0. 2 Not Available [facility] ([facility]) [address] [facility], [place], [address], 06/17/2023 08:28:17 06/16/19 24 06/17/2023 CBC WITH DIFFE RENTI AL/PL ATELE T immature granulocytes 0 % not estab. Not Available [facility] ([facility]) [address] [facility], [place], [address], 06/17/2023 08:28:17 06/16/19 24 06/17/2023 CBC WITH DIFFE RENTI AL/PL ATELE T immature grans (abs) 0.0 x10e3 /uL 0.0-0. 1 Not Available [facility] ([facility]) [address] [place], [address], 06/17/2023 08:28:17 06/16/19 24 06/17/2023 CBC WITH DIFFE RENTI AL/PL ATELE T NRBC ELECTRICAL INSTRUMENTATION TECHNICIAN Not Available [facility] ([facility]) [address] [place], [address], 06/17/2023 08:28:17 06/16/19 24 06/17/2023 CBC WITH DIFFE RENTI AL/PL ATELE T hematology comments: ELECTRICAL INSTRUMENTATION TECHNICIAN Not Available [facility] ([facility]) [address] [place], [address], 06/17/2023 08:28:17 06/16/19 24 06/17/2023 BASIC METAB OLIC PANEL (8) glucose 123 mg/dL 70-99 above high normal Not Available [facility] ([facility]) [address] [place], [address], 06/17/2023 08:28:19 06/16/19 24 06/17/2023 BASIC METAB OLIC PANEL (8) BUN 12 mg/dL 8-27 Not Available [facility] ([facility]) [address] [place], [address], 06/17/2023 08:28:19 06/16/19 24 06/17/2023 BASIC METAB OLIC PANEL (8) creatinine 0.75 mg/dL 0.57-1 .00 Not Available [facility] ([facility]) [address] [place], [address], 06/17/2023 08:28:19 06/16/19 24 06/17/2023 BASIC METAB OLIC PANEL (8) eGFR 88 mL/mi n/1.7 3 >59 Not Available [facility] ([facility]) [address] [place], [address], 06/17/2023 08:28:19 06/16/19 24 06/17/2023 BASIC METAB OLIC PANEL (8) BUN/creatini ne ratio 16 12-28 Not Available [facility] ([facility]) [address] [facility] [place], [address], 06/17/2023 08:28:19 06/16/19 24 06/17/2023 BASIC METAB OLIC PANEL (8) sodium 140 mmol/ L 134-14 4 Not Available [facility] ([facility]) [address] [facility] [place], [address], 06/17/2023 08:28:19 06/16/19 24 06/17/2023 BASIC METAB OLIC PANEL (8) potassium 4.0 mmol/ L 3.5-5. 2 Not Available [facility] ([facility]) [address] [facility] [place], [address], 06/17/2023 08:28:19 06/16/19 24 06/17/2023 BASIC METAB OLIC PANEL (8) chloride 102 mmol/ L 96-106 Not Available [facility] ([facility]) [address] [facility] [place], [address], 06/17/2023 08:28:19 06/16/19 24 06/17/2023 BASIC METAB OLIC PANEL (8) carbon dioxide, total 24 mmol/ L 20-29 Not Available [facility] ([facility]) [address] [facility] [place], [address], 06/17/2023 08:28:19 06/16/19 24 06/17/2023 BASIC METAB OLIC PANEL (8) calcium 9.3 mg/dL 8.7-10 .3 Not Available [facility] ([facility]) [address] [place], [address], 06/17/2023 08:28:19 06/16/19 24 06/17/2023 LIPID PANEL cholesterol, total 208 mg/dL 100-19 9 above high normal Not Available [facility] ([facility]) [address] [place], [address], 06/17/2023 08:28:20 06/16/19 24 06/17/2023 LIPID PANEL triglyceride s 165 mg/dL 0-149 above high normal Not Available [facility] ([facility]) [address] [place], [address], 06/17/2023 08:28:20 06/16/19 24 06/17/2023 LIPID PANEL HDL cholesterol 34 mg/dL >39 below low normal Not Available [facility] ([facility]) [address] [place], [address], 06/17/2023 08:28:20 06/16/19 24 06/17/2023 LIPID PANEL VLDL cholesterol anahi 30 mg/dL 5-40 Not Available [facility] ([facility]) [address] [place], [address], 06/17/2023 08:28:20 06/16/19 24 06/17/2023 LIPID PANEL LDL chol calc ([facility]) 144 mg/dL 0-99 above high normal Not Available [facility] ([facility]) [address] [place], [address], 06/17/2023 08:28:20 06/16/19 24 06/17/2023 LIPID PANEL comment: ELECTRICAL INSTRUMENTATION TECHNICIAN Not Available [facility] ([facility]) [address] [place], [address], 06/17/2023 08:28:20 06/16/19 24 06/17/2023 HEPAT IC FUNCT ION PANEL (7) protein, total 6.7 g/dL 6.0-8. 5 Not Available [facility] ([facility]) [address] [place], [address], 06/17/2023 08:28:21 06/16/19 24 06/17/2023 HEPAT IC FUNCT ION PANEL (7) albumin 4.2 g/dL 3.9-4. 9 Not Available [facility] ([facility]) [address] [place], [address], 06/17/2023 08:28:21 06/16/19 24 06/17/2023 HEPAT IC FUNCT ION PANEL (7) bilirubin, total 0.6 mg/dL 0.0-1. 2 Not Available [facility] ([facility]) [address] [place], [address], 06/17/2023 08:28:21 06/16/19 24 06/17/2023 HEPAT IC FUNCT ION PANEL (7) bilirubin, direct 0.16 mg/dL 0.00-0 .40 Not Available [facility] ([facility]) [address] [place], [address], 06/17/2023 08:28:21 06/16/19 24 06/17/2023 HEPAT IC FUNCT ION PANEL (7) alkaline phosphatase 123 IU/L 44-121 above high normal Not Available [facility] ([facility]) [address] [place], [address], 06/17/2023 08:28:21 06/16/19 24 06/17/2023 HEPAT IC FUNCT ION PANEL (7) AST (SGOT) 22 IU/L 0-40 Not Available [facility] ([facility]) [address] [place], [address], 06/17/2023 08:28:21 06/16/19 24 06/17/2023 HEPAT IC FUNCT ION PANEL (7) ALT (SGPT) 24 IU/L 0-32 Not Available [facility] ([facility]) [address] [facility], [place], [address], 06/17/2023 08:28:21 06/16/19 24 06/17/2023 IRON AND TIBC iron bind.cap.(TI BC) 308 ug/dL 250-45 0 Not Available [facility] ([facility]) [address] [place], [address], 06/17/2023 08:28:22 06/16/19 24 06/17/2023 IRON AND TIBC UIBC 218 ug/dL 118-36 9 Not Available [facility] ([facility]) [address] [place], [address], 06/17/2023 08:28:22 06/16/19 24 06/17/2023 IRON AND TIBC iron 90 ug/dL 27-139 Not Available [facility] ([facility]) [address] [place], [address], 06/17/2023 08:28:22 06/16/19 24 06/17/2023 IRON AND TIBC iron saturation 29 % 15-55 Not Available [facility] ([facility]) [address] [place], [address], 06/17/2023 08:28:22 06/16/19 24 06/17/2023 HEMOG LOBIN A1C hemoglobin A1C 5.9 % 4.8-5. 6 above high normal Predi abete s: 5.7 - 6.4 Diabe ashli: >6.4 Glyce alejandra contr ol for adult s with diabe ashli: <7.0 Not Available [facility] ([facility]) [address] [facility], [place], [address], 06/17/2023 08:28:23 06/16/19 24 06/17/2023 VITAM IN D, 25-HY DROXY vitamin D, 25-hydroxy 22.5 NG/mL 30.0-1 00.0 below low normal Vitam in D defic iency has been defin ed by the Insti tute of Medic ine and an Endoc rine Socie ty pract ice guide line as a level of serum 25-OH vitam in D less than 20 ng/mL (1,2) . The Endoc rine Socie ty went on to furth er defin e vitam in D insuf ficie ncy as a level betwe en 21 and 29 ng/mL (2). 1. IOM (Inst itute of Medic ine). 2009. Dieta ry refer ence keisha es for calci um and D. Mookie murry [place]: The [employer] includes the [facility] Acade [facility] Press . 2. Tayler galindo MF, Hubert ey [place], Pebbles off-F errar i BASILIO, et al. Evalu ation , treat ment, and preve ntion of vitam in D defic iency : an Endoc rine Socie ty clini anahi pract ice guide line. JCEM. 2010; 96(7) :1911 -30. Not Available [facility] ([facility]) [address] [facility], [place], [address], 06/17/2023 08:28:24 06/16/19 24 06/17/2023 MACKENZIE TIN ferritin 299 NG/mL 15-150 above high normal Not Available [facility] ([facility]) [address] [facility], [place], [address], 06/17/2023 08:28:25 06/16/19 24 06/16/2023 AMBIG ABBRE V BMP8 DEFAU LT ambig abbrev BMP8 default COMMEN T A hand- writt en panel /prof ile was recei elham from your offic e. In accor dance with the [facility] [employer] u[employer] Test Code Polic y dated December 2002, we have compl eted your order by using the close st curre ntly or forme rly recog nized AMA panel . We have stephaine lam Basic Metab olic Panel (8), Test Code #32[address]. If this is not the testi ng you wishe d to recei ve on this speci men, pleas e conta ct the [facility] Clien t Inqui ry/Te chnic al Servi monica Depar tment to jay jay fy the test order . We appre ciate your busin ess. Not Available [facility] ([facility]) [address] [place], [address], 06/17/2023 08:28:26 06/16/19 24 06/16/2023 AMBIG ABBRE V LP DEFAU LT ambig abbrev LP default COMMEN T A hand- writt en panel /prof ile was recei elham from your offic e. In accor dance with the [facility] Ambchidi uous Test Code Polic y dated December 2002, we have compl eted your order by using the close st curre ntly or forme rly recog nized AMA panel . We have stephanie lam Lipid Panel , Test Code #30[address]. If this is not the testi ng you wishe d to recei ve on this speci men, pleas e conta ct the [facility] Clien t Inqui ry/Te chnic al Servi monica Depar tment to jay jay fy the test order . We appre ciate your busin ess. Not Available [facility] ([facility]) [address] [place], [address], 06/17/2023 08:28:26 06/16/19 24 06/16/2023 AMBCHIDI ABBRE V HFP7 DEFAU LT ambchidi abbrev hfp7 default COMMEN T A hand- writt en panel /prof gabriel was recei elham from your offic e. In accor dance with the [facility] [employer] woo Test Code Polic y dated December 2002, we have compl eted your order by using the close st curre ntly or forme rly recog nized AMA panel . We have asschidi lam Hepat ic Funct ion Panel (7), Test Code #3227 [address]. If this is not the testi ng you wishe d to recei ve on this speci men, pleas e conta ct the [facility] Clien t Inqui ry/Te chnic al Servi monica Depar tment to jay jay fy the test order . We appre ciate your busin ess. Not Available [facility] ([facility]) [address] [place], [address], 06/17/2023 08:28:27 08/08/19 24 08/09/2023 CBC WITH DIFFE RENTI AL/PL ATELE T WBC 6.4 x10e3 /uL 3.4-10 .8 Not Available [facility] ([facility]) [address] [place], [address], 08/09/2023 11:37:31 08/08/19 24 08/09/2023 CBC WITH DIFFE RENTI AL/PL ATELE T RBC 5.13 x10e6 /uL 3.77-5 .28 Not Available [facility] ([facility]) [address] [place], [address], 08/09/2023 11:37:31 08/08/19 24 08/09/2023 CBC WITH DIFFE RENTI AL/PL ATELE T hemoglobin 15.2 g/dL 11.1-1 5.9 Not Available [facility] ([facility]) [address] [place], [address], 08/09/2023 11:37:31 08/08/19 24 08/09/2023 CBC WITH DIFFE RENTI AL/PL ATELE T hematocrit 44.8 % 34.0-4 6.6 Not Available [facility] ([facility]) [address] [facility], [place], [address], 08/09/2023 11:37:31 08/08/19 24 08/09/2023 CBC WITH DIFFE RENTI AL/PL ATELE T MCV 87 fL 79-97 Not Available [facility] ([facility]) [address] [facility], [place], [address], 08/09/2023 11:37:31 08/08/19 24 08/09/2023 CBC WITH DIFFE RENTI AL/PL ATELE T MCH 29.6 pg 26.6-3 3.0 Not Available [facility] ([facility]) [address] [facility], [place], [address], 08/09/2023 11:37:31 08/08/19 24 08/09/2023 CBC WITH DIFFE RENTI AL/PL ATELE T MCHC 33.9 g/dL 31.5-3 5.7 Not Available [facility] ([facility]) [address] [facility], [place], [address], 08/09/2023 11:37:31 08/08/19 24 08/09/2023 CBC WITH DIFFE RENTI AL/PL ATELE T RDW 13.2 % 11.7-1 5.4 Not Available [facility] ([facility]) [address] [facility], [place], [address], 08/09/2023 11:37:31 08/08/19 24 08/09/2023 CBC WITH DIFFE RENTI AL/PL ATELE T platelets 338 x10e3 /uL 150-45 0 Not Available [facility] ([facility]) [address] [facility], [place], [address], 08/09/2023 11:37:31 08/08/19 24 08/09/2023 CBC WITH DIFFE RENTI AL/PL ATELE T neutrophils 55 % not estab. Not Available [facility] ([facility]) [address] [facility], [place], [address], 08/09/2023 11:37:31 08/08/19 24 08/09/2023 CBC WITH DIFFE RENTI AL/PL ATELE T lymphs 31 % not estab. Not Available [facility] ([facility]) [address] [facility], [place], [address], 08/09/2023 11:37:31 08/08/19 24 08/09/2023 CBC WITH DIFFE RENTI AL/PL ATELE T monocytes 9 % not estab. Not Available [facility] ([facility]) [address] [facility], [place], [address], 08/09/2023 11:37:31 08/08/19 24 08/09/2023 CBC WITH DIFFE RENTI AL/PL ATELE T eos 4 % not estab. Not Available [facility] ([facility]) [address] [facility], [place], [address], 08/09/2023 11:37:31 08/08/19 24 08/09/2023 CBC WITH DIFFE RENTI AL/PL ATELE T basos 1 % not estab. Not Available [facility] ([facility]) [address] [facility], [place], [address], 08/09/2023 11:37:31 08/08/19 24 08/09/2023 CBC WITH DIFFE RENTI AL/PL ATELE T immature cells ELECTRICAL INSTRUMENTATION TECHNICIAN Not Available [facility] ([facility]) [address] [place], [address], 08/09/2023 11:37:31 08/08/19 24 08/09/2023 CBC WITH DIFFE RENTI AL/PL ATELE T neutrophils (absolute) 3.6 x10e3 /uL 1.4-7. 0 Not Available [facility] ([facility]) [address] [facility], [place], [address], 08/09/2023 11:37:31 08/08/19 24 08/09/2023 CBC WITH DIFFE RENTI AL/PL ATELE T lymphs (absolute) 2.0 x10e3 /uL 0.7-3. 1 Not Available [facility] ([facility]) [address] [facility], [place], [address], 08/09/2023 11:37:31 08/08/19 24 08/09/2023 CBC WITH DIFFE RENTI AL/PL ATELE T monocytes(ab solute) 0.6 x10e3 /uL 0.1-0. 9 Not Available [facility] ([facility]) [address] [facility], [place], [address], 08/09/2023 11:37:31 08/08/19 24 08/09/2023 CBC WITH DIFFE RENTI AL/PL ATELE T eos (absolute) 0.2 x10e3 /uL 0.0-0. 4 Not Available [facility] ([facility]) [address] [facility], [place], [address], 08/09/2023 11:37:31 08/08/19 24 08/09/2023 CBC WITH DIFFE RENTI AL/PL ATELE T baso (absolute) 0.1 x10e3 /uL 0.0-0. 2 Not Available [facility] ([facility]) [address] [facility], [place], [address], 08/09/2023 11:37:31 08/08/19 24 08/09/2023 CBC WITH DIFFE RENTI AL/PL ATELE T immature granulocytes 0 % not estab. Not Available [facility] ([facility]) [address] [facility], [place], [address], 08/09/2023 11:37:31 08/08/19 24 08/09/2023 CBC WITH DIFFE RENTI AL/PL ATELE T immature grans (abs) 0.0 x10e3 /uL 0.0-0. 1 Not Available [facility] ([facility]) [address] [facility], [place], [address], 08/09/2023 11:37:31 08/08/19 24 08/09/2023 CBC WITH DIFFE RENTI AL/PL ATELE T NRBC ELECTRICAL INSTRUMENTATION TECHNICIAN Not Available [facility] ([facility]) [address] [facility], [place], [address], 08/09/2023 11:37:31 08/08/19 24 08/09/2023 CBC WITH DIFFE RENTI AL/PL ATELE T hematology comments: ELECTRICAL INSTRUMENTATION TECHNICIAN Not Available [facility] ([facility]) [address] [facility], [place], [address], 08/09/2023 11:37:31 08/08/19 24 08/09/2023 HEPAT IC FUNCT ION PANEL (7) protein, total 6.8 g/dL 6.0-8. 5 Not Available [facility] ([facility]) [address] [facility] [place], [address], 08/09/2023 11:37:32 08/08/19 24 08/09/2023 HEPAT IC FUNCT ION PANEL (7) albumin 4.4 g/dL 3.9-4. 9 Not Available [facility] ([facility]) [address] [facility] [place], [address], 08/09/2023 11:37:32 08/08/19 24 08/09/2023 HEPAT IC FUNCT ION PANEL (7) bilirubin, total 0.3 mg/dL 0.0-1. 2 Not Available [facility] ([facility]) [address] [facility] [place], [address], 08/09/2023 11:37:32 08/08/19 24 08/09/2023 HEPAT IC FUNCT ION PANEL (7) bilirubin, direct 0.11 mg/dL 0.00-0 .40 Not Available [facility] ([facility]) [address] [facility], [place], [address], 08/09/2023 11:37:32 08/08/19 24 08/09/2023 HEPAT IC FUNCT ION PANEL (7) alkaline phosphatase 106 IU/L 44-121 Not Available [facility] ([facility]) [address] [facility], [place], [address], 08/09/2023 11:37:32 08/08/19 24 08/09/2023 HEPAT IC FUNCT ION PANEL (7) AST (SGOT) 27 IU/L 0-40 Not Available [facility] ([facility]) [address] [facility], [place], [address], 08/09/2023 11:37:32 08/08/19 24 08/09/2023 HEPAT IC FUNCT ION PANEL (7) ALT (SGPT) 23 IU/L 0-32 Not Available [facility] ([facility]) [address] [facility], [place], [address], 08/09/2023 11:37:32 08/08/19 24 08/09/2023 IRON AND TIBC iron bind.cap.(TI BC) 307 ug/dL 250-45 0 Not Available [facility] ([facility]) [address] [facility], [place], [address], 08/09/2023 11:37:33 08/08/19 24 08/09/2023 IRON AND TIBC UIBC 239 ug/dL 118-36 9 Not Available [facility] ([facility]) [address] [facility], [place], [address], 08/09/2023 11:37:33 08/08/19 24 08/09/2023 IRON AND TIBC iron 68 ug/dL 27-139 Not Available [facility] ([facility]) [address] [facility], [place], [address], 08/09/2023 11:37:33 08/08/19 24 08/09/2023 IRON AND TIBC iron saturation 22 % 15-55 Not Available [facility] ([facility]) [address] [facility], [place], [address], 08/09/2023 11:37:33 08/08/19 24 08/09/2023 MACKENZIE TIN ferritin 292 NG/mL 15-150 above high normal Not Available [facility] ([facility]) [address] [facility], [place], [address], 08/09/2023 11:37:35 08/08/19 24 08/08/2023 AMBCHIDI ABBRE V HFP7 DEFAU LT ambig abbrev hfp7 default Commen t A hand- writt en panel /prof ile was recei elham from your offic e. In accor dance with the [facility] [employer] u[employer] Test Code Polic y dated December 2002, we have compl eted your order by using the close st curre ntly or forme rly recog nized AMA panel . We have assig genaro Hepat ic Funct ion Panel (7), Test Code #[address]. If this is not the testi ng you wishe d to recei ve on this speci men, pleas e conta ct the [facility] Clien t Inqui ry/Te chnic al Servi monica Depar tment to jay jay fy the test order . We appre ciate your busin ess. Not Available [facility] ([facility]) [address] [facility], [place], [address], 08/09/2023 11:37:36 04/17/20 24 04/17/2024 CBC WITH DIFFE RENTI AL/PL ATELE T WBC 9.4 x10e3 /uL 3.4-10 .8 normal Not Available [facility] ([facility]) [address] [facility], [place], [address], 04/18/2024 07:13:59 04/17/20 24 04/17/2024 CBC WITH DIFFE RENTI AL/PL ATELE T RBC 5.69 x10e6 /uL 3.77-5 .28 above high normal Not Available [facility] ([facility]) [address] [place], [address], 04/18/2024 07:13:59 04/17/20 24 04/17/2024 CBC WITH DIFFE RENTI AL/PL ATELE T hemoglobin 17.0 g/dL 11.1-1 5.9 above high normal Not Available [facility] ([facility]) [address] [place], [address], 04/18/2024 07:13:59 04/17/2004/17/2024 CBC WITH DIFFE RENTI AL/PL ATELE T hematocrit 50.3 % 34.0-4 6.6 above high normal Not Available [facility] ([facility]) [address] [place], [address], 04/18/2024 07:13:59 04/17/20 24 04/17/2024 CBC WITH DIFFE RENTI AL/PL ATELE T MCV 88 fL 79-97 normal Not Available [facility] ([facility]) [address] [place], [address], 04/18/2024 07:13:59 04/17/20 24 04/17/2024 CBC WITH DIFFE RENTI AL/PL ATELE T MCH 29.9 pg 26.6-3 3.0 normal Not Available [facility] ([facility]) [address] [place], [address], 04/18/2024 07:13:59 04/17/2004/17/2024 CBC WITH DIFFE RENTI AL/PL ATELE T MCHC 33.8 g/dL 31.5-3 5.7 normal Not Available [facility] ([facility]) [address] [place], [address], 04/18/2024 07:13:59 04/17/20 24 04/17/2024 CBC WITH DIFFE RENTI AL/PL ATELE T RDW 12.2 % 11.7-1 5.4 Not Available [facility] ([facility]) [address] [facility], [place], [address], 04/18/2024 07:13:59 04/17/20 24 04/17/2024 CBC WITH DIFFE RENTI AL/PL ATELE T platelets 353 x10e3 /uL 150-45 0 normal Not Available [facility] ([facility]) [address] [facility], [place], [address], 04/18/2024 07:13:59 04/17/20 24 04/17/2024 CBC WITH DIFFE RENTI AL/PL ATELE T neutrophils 60 % not estab. normal Not Available [facility] ([facility]) [address] [facility], [place], [address], 04/18/2024 07:13:59 04/17/20 24 04/17/2024 CBC WITH DIFFE RENTI AL/PL ATELE T lymphs 29 % not estab. normal Not Available [facility] ([facility]) [address] [facility], [place], [address], 04/18/2024 07:13:59 04/17/20 24 04/17/2024 CBC WITH DIFFE RENTI AL/PL ATELE T monocytes 8 % not estab. normal Not Available [facility] ([facility]) [address] [facility], [place], [address], 04/18/2024 07:13:59 04/17/20 24 04/17/2024 CBC WITH DIFFE RENTI AL/PL ATELE T eos 3 % not estab. normal Not Available [facility] ([facility]) [address] [facility], [place], [address], 04/18/2024 07:13:59 04/17/20 24 04/17/2024 CBC WITH DIFFE RENTI AL/PL ATELE T basos 0 % not estab. normal Not Available [facility] (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) [address] [facility], [place], [address], 04/18/2024 07:13:59 04/17/20 24 04/17/2024 CBC WITH DIFFE RENTI AL/PL ATELE T neutrophils (absolute) 5.6 x10e3 /uL 1.4-7. 0 normal Not Available [facility] ([facility]) [address] [facility], [place], [address], 04/18/2024 07:13:59 04/17/20 24 04/17/2024 CBC WITH DIFFE RENTI AL/PL ATELE T lymphs (absolute) 2.7 x10e3 /uL 0.7-3. 1 normal Not Available [facility] ([facility]) [address] [place], [address], 04/18/2024 07:13:59 04/17/20 24 04/17/2024 CBC WITH DIFFE RENTI AL/PL ATELE T monocytes(ab solute) 0.8 x10e3 /uL 0.1-0. 9 normal Not Available [facility] ([facility]) [address] [place], [address], 04/18/2024 07:13:59 04/17/20 24 04/17/2024 CBC WITH DIFFE RENTI AL/PL ATELE T eos (absolute) 0.3 x10e3 /uL 0.0-0. 4 normal Not Available [facility] ([facility]) [address] [place], [address], 04/18/2024 07:13:59 04/17/20 24 04/17/2024 CBC WITH DIFFE RENTI AL/PL ATELE T baso (absolute) 0.0 x10e3 /uL 0.0-0. 2 normal Not Available [facility] ([facility]) [address] [facility], [place], [address], 04/18/2024 07:13:59 04/17/20 24 04/17/2024 CBC WITH DIFFE RENTI AL/PL ATELE T immature granulocytes 0 % not estab. Not Available [facility] ([facility]) [address] [facility], [place], [address], 04/18/2024 07:13:59 04/17/20 24 04/17/2024 CBC WITH DIFFE RENTI AL/PL ATELE T immature grans (abs) 0.0 x10e3 /uL 0.0-0. 1 Not Available [facility] ([facility]) [address] [facility], [place], [address], 04/18/2024 07:13:59 04/17/20 24 04/17/2024 CBC WITH DIFFE RENTI AL/PL ATELE T NRBC ELECTRICAL INSTRUMENTATION TECHNICIAN Not Available [facility] ([facility]) [address] [facility], [place], [address], 04/18/2024 07:13:59 04/17/20 24 04/17/2024 CBC WITH DIFFE RENTI AL/PL ATELE T hematology comments: ELECTRICAL INSTRUMENTATION TECHNICIAN Not Available [facility] ([facility]) [address] [facility], [place], [address], 04/18/2024 07:13:59 04/17/20 24 04/18/2024 COMP. METAB OLIC PANEL (14) glucose 118 mg/dL 70-99 above high normal Not Available [facility] ([facility]) [address] [place], [address], 04/18/2024 07:14:01 04/17/20 24 04/18/2024 COMP. METAB OLIC PANEL (14) BUN 12 mg/dL 8-27 normal Not Available [facility] ([facility]) [address] [facility] [place], [address], 04/18/2024 07:14:01 04/17/20 24 04/18/2024 COMP. METAB OLIC PANEL (14) creatinine 0.72 mg/dL 0.57-1 .00 normal Not Available [facility] ([facility]) [address] [facility] [place], [address], 04/18/2024 07:14:01 04/17/20 24 04/18/2024 COMP. METAB OLIC PANEL (14) eGFR 92 mL/mi n/1.7 3 >59 normal Not Available [facility] ([facility]) [address] [facility] [place], [address], 04/18/2024 07:14:01 04/17/20 24 04/18/2024 COMP. METAB OLIC PANEL (14) BUN/creatini ne ratio 17 12-28 normal Not Available [facility] ([facility]) [address] [facility], [place], [address], 04/18/2024 07:14:01 04/17/20 24 04/18/2024 COMP. METAB OLIC PANEL (14) sodium 140 mmol/ L 134-14 4 normal Not Available [facility] ([facility]) [address] [facility] [place], [address], 04/18/2024 07:14:01 04/17/20 24 04/18/2024 COMP. METAB OLIC PANEL (14) potassium 3.9 mmol/ L 3.5-5. 2 normal Not Available [facility] ([facility]) [address] [facility] [place], [address], 04/18/2024 07:14:01 04/17/20 24 04/18/2024 COMP. METAB OLIC PANEL (14) chloride 97 mmol/ L 96-106 normal Not Available [facility] ([facility]) [address] [facility] [place], [address], 04/18/2024 07:14:01 04/17/20 24 04/18/2024 COMP. METAB OLIC PANEL (14) carbon dioxide, total 23 mmol/ L 20-29 normal Not Available [facility] ([facility]) [address] [facility] [place], [address], 04/18/2024 07:14:01 04/17/20 24 04/18/2024 COMP. METAB OLIC PANEL (14) calcium 9.5 mg/dL 8.7-10 .3 normal Not Available [facility] ([facility]) [address] [place], [address], 04/18/2024 07:14:01 04/17/20 24 04/18/2024 COMP. METAB OLIC PANEL (14) protein, total 7.4 g/dL 6.0-8. 5 normal Not Available [facility] ([facility]) [address] [facility] [place], [address], 04/18/2024 07:14:01 04/17/20 24 04/18/2024 COMP. METAB OLIC PANEL (14) albumin 4.5 g/dL 3.9-4. 9 normal Not Available [facility] ([facility]) [address] [facility] [place], [address], 04/18/2024 07:14:01 04/17/20 24 04/18/2024 COMP. METAB OLIC PANEL (14) globulin, total 2.9 g/dL 1.5-4. 5 Not Available [facility] ([facility]) [address] [facility] [place], [address], 04/18/2024 07:14:01 04/17/20 24 04/18/2024 COMP. METAB OLIC PANEL (14) bilirubin, total 0.9 mg/dL 0.0-1. 2 normal Not Available [facility] ([facility]) [address] [facility] [place], [address], 04/18/2024 07:14:01 04/17/20 24 04/18/2024 COMP. METAB OLIC PANEL (14) alkaline phosphatase 117 IU/L 44-121 normal Not Available [facility] ([facility]) [address] [facility] [place], [address], 04/18/2024 07:14:01 04/17/20 24 04/18/2024 COMP. METAB OLIC PANEL (14) AST (SGOT) 23 IU/L 0-40 normal Not Available [facility] ([facility]) [address] [facility] [place], [address], 04/18/2024 07:14:01 04/17/20 24 04/18/2024 COMP. METAB OLIC PANEL (14) ALT (SGPT) 29 IU/L 0-32 normal Not Available [facility] ([facility]) [address] [place], [address], 04/18/2024 07:14:01 04/17/20 24 04/18/2024 LIPID PANEL cholesterol, total 240 mg/dL 100-19 9 above high normal Not Available [facility] ([facility]) [address] [place], [address], 04/18/2024 07:14:02 04/17/20 24 04/18/2024 LIPID PANEL triglyceride s 140 mg/dL 0-149 normal Not Available [facility] ([facility]) [address] [place], [address], 04/18/2024 07:14:02 04/17/20 24 04/18/2024 LIPID PANEL HDL cholesterol 34 mg/dL >39 below low normal Not Available [facility] ([facility]) [address] [place], [address], 04/18/2024 07:14:02 04/17/20 24 04/18/2024 LIPID PANEL VLDL cholesterol anahi 26 mg/dL 5-40 Not Available [facility] ([facility]) [address] [facility] [place], [address], 04/18/2024 07:14:02 04/17/20 24 04/18/2024 LIPID PANEL LDL chol calc ([facility]) 180 mg/dL 0-99 above high normal Not Available [facility] (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) [address] [facility], [place], [address], 04/18/2024 07:14:02 04/17/2004/18/2024 HEMOG LOBIN A1C hemoglobin A1C 6.5 % 4.8-5. 6 above high normal Predi abete s: 5.7 - 6.4 Diabe ashli: >6.4 Glyce alejandra contr ol for adult s with diabe ashli: <7.0 Not Available [facility] ([facility]) [address] [facility], [place], [address], 04/18/2024 07:14:03 04/17/2004/18/2024 VITAM IN D, 25-HY DROXY vitamin D, 25-hydroxy 31.9 NG/mL 30.0-1 00.0 Vitam in D defic iency has been defin ed by the Insti tute of Medic ine and an Endoc rine Socie ty pract ice guide line as a level of serum 25-OH vitam in D less than 20 ng/mL (1,2) . The Endoc rine Socie ty went on to furth er defin e vitam in D insuf ficie ncy as a level betwe en 21 and 29 ng/mL (2). 1. IOM (Inst itute of Medic ine). 2010. Dieta ry refer ence intak es for calci um and D. Mookie murry [place]: The Natcount includes the [facility] Acade [facility] Press . 2. Tayler galindo [place], Hubert downs [place], Pebbles off-F errar i BASILIO, et al. Evalu ation , treat ment, and preve ntion of vitam in D defic iency : an Endoc rine Socie ty clini anahi pract ice guide line. JCEM. 2010; 96(7) :1911 -30. Not Available [facility] ([facility]) [address], [place], [address], 04/18/2024 07:14:04 11/28/19 23 11/27/2022 MRI, shoul david, w/o contr ast No observ ation record ed. [email or web address] [facility] [address], [place], [address], 12/01/2022 09:12:27 08/04/19 24 08/04/2023 MAMMO , scree sanjeev, digit al, bilat eral No observ ation record ed. [place] [address], [place], [address], 10/20/2023 08:05:19 08/26/19 24 08/26/2023 XR, knee No observ ation record ed. [address], [place], [address], 10/20/2023 08:51:21 08/26/19 24 08/26/2023 XR, knee No observ ation record ed. [address] [facility] [address] [facility] [address], [place], [address], 10/20/2023 08:51:21 08/26/19 24 08/26/2023 XR, knee No observ ation record ed. [address] [facility] [address] [facility] [address], [place], [address], 10/20/2023 08:05:20 09/05/19 24 09/05/2023 US, mark [email or web address] teralex No observ ation record ed. [address], [place], [address], 10/20/2023 08:50:24 09/08/19 24 09/05/2023 MAMMO , diagn ostic , digit al, unila teral No observ ation record ed. [address], [place], [address], 10/20/2023 08:50:44 03/06/20 24 03/06/2024 US, breas t No observ ation record ed. [email or web address] [address], [place], [address], 03/06/2024 16:45:14 04/17/20 24 04/17/2024 XR, chest , 2 view No observ ation record ed. [email or web address] [facility] [address], [place], [address], 04/17/2024 14:09:29 08/21/19 25 08/06/2024 XR, hip + pelvi s, bilat eral No observ ation record ed. [email or web address] [facility] [address] [facility], [place], [address], 08/20/2024 14:38:52 09/05/19 25 09/04/2024 MAMMO , scree sanjeev, digit al, bilat eral No observ ation record ed. [email or web address] [address], [place], [address], 09/04/2024 15:13:24 09/18/19 25 09/07/2024 XR, hip + pelvi s, unila teral No observ ation record ed. [email or web address] [facility] [address] , [place], [address], 09/18/2024 11:07:41 Result Notes None recorded. Problems Name Problem SNOMED Code Status Onset Date Resolution Date Notes Provider Name and Address Organization Details Recorded Time Acute bronchit is 21182636 Active Not Available [facility] 3 16:00:52 History of Malignan t melanoma 518277904 Active s/p resectio n from right face Not Available [facility] 3 16:00:52 Vitamin D deficien cy 08953598 Active 2016 Not Available [facility] 3 16:00:52 Depressi ve disorder 65552054 Active Not Available [facility] 3 16:00:52 Postsurg ical menopaus e 936920664 Active Not Available [facility] 3 16:00:52 Osteoart hritis 775771275 Active Not Available [facility] 3 16:00:52 Divertic ular disease 184353549 Active Not Available [facility] 3 16:00:52 Sleep disorder 18292746 Active Not Available [facility] 3 16:00:52 Pharyngi tis 398610282 Active Not Available [facility] 3 16:00:52 Dysphagi a 78042568 Active Not Available [facility] 3 16:00:53 Obesity 833838855 Active Not Available [facility] 3 16:00:53 Periodic limb movement disorder 795302699 Active 2016 Not Available [facility] 3 16:00:53 Allergic conjunct ivitis 879394435 Active Not Available [facility] 3 16:00:53 Cough 58766113 Active Not Available [facility] 3 16:00:53 Hypocalc emia 0809285 Active Not Available [facility] 3 16:00:53 Hyperlip idemia 83293697 Active Not Available [facility] 3 16:00:53 [facility] hyperten [place] 54715176 Active Not Available [facility] 3 16:00:53 Allergic rhinitis 45721499 Active Not Available [facility] 3 16:00:53 Increase d liver function 84501802 Active Not Available [facility] 3 16:00:53 Sleep apnea 61388671 Completed Not Available [facility] 3 16:00:53 Hypersom vic 26883519 Active Not Available [facility] 3 16:00:53 Obstruct dariusz sleep apnea syndrome 99953192 Active 2016 On CPAP Not Available [facility] 3 16:00:54 Hypergly cemia 12442716 Active Borderli ne Not Available [facility] 3 16:00:54 Fatigue 73737165 Active Not Available [facility] 3 16:00:54 COVID-19 267695460 Active 2022 Rhea James MD [address], [place], [address] , [facility] 3 10:26:21 Anxiety 62878714 Active 2022 Rhea James MD [address], [address], [place], [address] , [facility] 3 09:46:37 Mixed anxiety and depressi ve disorder 775063081 Active 2022 Rhea James MD [address], [place], [address] , [facility] 3 18:26:30 Dysfunct ion of bilatera l eustachi an tubes 77068522588 06183 Active 2022 Anthony Benito MD [address], [address], [place], [address] , [facility] 3 12:40:59 Acute sinusiti s 95982528 Active 2022 Rhea James MD [address], [address], [place], [address] , [facility] 3 11:26:33 Serum iron above referenc e range 599101101 Active 2023 Rhea James MD [address], [place], [address] , [facility] 4 13:57:22 Pain of bilatera l knee joints 76145804874 4104 Active 2023 Rhea James MD [address] [facility], [place], [address] , [facility] 4 08:54:45 Acute upper respirat ory infectio n 46320426 Active 2023 FELY Casarez [address], [facility], [place], [address] , [employer] 4 14:23:51 Prediabe ashli [id number] Active 2023 FELY Casarez [address], [place] [address], [place], [address] , [employer] 4 10:06:49 Diabetes mellitus [id number] Active 2023 FELY Casarez [address], [place] [address], [place], [address] , [email or web address] 4 10:07:49 Irritabl e bowel syndrome with diarrhea [id number] Active 2024 FELY Casarez [address], [address], [address] , [employer] 5 10:05:11 Notes:Rhea James MD [facility] home sleep study 07/09/22 AHI = 10, supine AHI = 29 Medical History: Anxiety/Depression Glaucoma Rhinitis Obesity with mild OSAHS, AHI = 10, 07/09/22 Mild MR Hypertension EF 55% with grade 1 diastolic dysfunction Mixed hyperlipidemia CECY Diverticulosis Vit D insufficiency Right glenohumeral OA Left CTS Procedure History: Malignant melanoma excision Problem Notes None recorded. Procedures Surgical History Date Name Laterality Status Provider Name and Address Organization Details Recorded Time 08/04/19 24 Most Recent Mammogram completed Barbara Abarca LPN [employer] [facility] 08/05/2023 12:08:43 10/09/19 16 colonoscopy completed Not [facility] 08/05/19 15:58:48 Imaging Results Imaging Date Name Status LastModified by [facility] Details LastModified Time 11/27/2022 MRI, shoulder, w/o contrast completed [email or web address] [facility] [address], [place], [address], 12/01/2022 09:12:27 08/04/2023 MAMMO, screening, digital, bilateral completed [address] [facility], [place], [address], 10/20/2023 08:05:19 08/26/2023 XR, knee completed [address], [place], [address], 10/20/2023 08:51:21 08/26/2023 XR, knee completed [address], [place], [address], 10/20/2023 08:51:21 08/26/2023 XR, knee completed [address], [place], [address], 10/20/2023 08:05:20 09/05/2023 US, breast, unilateral completed [address] [facility], [place], [address], 10/20/2023 08:50:24 09/05/2023 MAMMO, diagnostic, digital, unilateral completed [address] [facility], [place], [address], 10/20/2023 08:50:44 03/06/2024 US, breast completed [address] [facility], [place], [address], 03/06/2024 16:45:14 04/17/2024 XR, chest, 2 view completed [email or web address] [facility] [address], [place], [address], 04/17/2024 14:09:29 08/06/2024 XR, hip + pelvis, bilateral completed [facility] [address], [place], [address], 08/20/2024 14:38:52 09/04/2024 MAMMO, screening, digital, bilateral completed [email or web address] [facility] [address], [place], [address], 09/04/2024 15:13:24 09/07/2024 XR, hip + pelvis, unilateral completed [email or web address] [facility] [address], [place], [address], 09/18/2024 11:07:41 Procedure Notes None recorded. Medical Equipment None Reported. Allergies No known drug allergies Medications Name Sig Start Date Stop Date Status Note LastModified by Organization Details LastModified Time amoxicillin 500 mg capsule TAKE 1 CAPSULE BY MOUTH THREE TIMES DAILY 04/16 completed Not Available Not Available Not Available latanoprost 0.005 % eye drops INSTILL 1 DROP INTO EACH EYE IN THE EVENING active Not Available Not Available No t Available nystatin 100,000 unit/mL oral suspension Take 5 mL 4 times a day by oral route for 7 days. 01/27 completed Not Available Not Available Not Available prednisone 10 mg tablet 11/28 completed Not Available Not Available Not Available doxycycline hyclate 100 mg capsule Take 1 capsule twice a day by oral route for 10 days. 07/13 completed Not Available Not Available Not Available paroxetine 10 mg tablet TAKE 1 TABLET BY MOUTH ONCE DAILY WITH A 40MG TABLET FOR 50MG TOTAL 04/14 completed Not Available Not Available Not Available cefuroxime axetil 250 mg tablet 11/28 completed Not Available Not Available Not Available atorvastati n 10 mg tablet active Not Available Not Available Not Available oxybutynin chloride ER 10 mg tablet,exte nded release 24 hr TAKE 1 TABLET BY MOUTH ONCE DAILY 04/14 completed Not Available Not Available Not Available azithromyci n 250 mg tablet TAKE 2 TABLETS (500 MG) BY ORAL ROUTE ONCE DAILY FOR 1 DAY THEN 1 TABLET (250 MG) BY ORAL ROUTE ONCE DAILY FOR 4 DAYS active Not Available Not Available No t Available fluconazole 150 mg tablet TAKE ONE TABLET BY MOUTH A ONE-TIME DOSE 04/14 completed Not Available Not Available Not Available hydrocodone 5 mg-acetamin ophen 325 mg tablet TAKE 1 TABLET BY MOUTH EVERY 4 TO 6 HOURS NEEDED FOR PAIN 12/17 completed Not Available Not Available Not Available meloxicam 15 mg tablet Take 1 tablet every day by oral route as needed. active Not Available Not Available No t Available metronidazo le 0.75 % (37.5 mg/5 gram) vaginal gel active Not Available Not Available Not Available prednisone 20 mg tablet Take 2 tablets every day by oral route for 5 days. 04/16 completed Not Available Not Available Not Available estropipate 0.75 mg tablet Take 1 tablet every day by oral route. 06/14 completed Not Available Not Available Not Available venlafaxine ER 150 mg capsule,ext ended release 24 hr Take 1 capsule every day by oral route. 11/28 completed Not Available Not Available Not Available acetaminoph en 300 mg-codeine 30 mg tablet active Not Available Not Available Not Available ciprofloxac in 500 mg tablet Take 1 tablet every 12 hours by oral route for 7 days. active Not Available Not Available No t Available sulfamethox azole 800 mg-trimetho prim 160 mg tablet TAKE 1 TABLET BY MOUTH EVERY 12 HOURS FOR 7 DAYS active Not Available Not Available No t Available hydrocodone 10 mg-acetamin ophen 325 mg tablet TAKE 1 TO 2 TABLETS BY MOUTH EVERY 6 HOURS NEEDED . DO NOT EXCEED 5 PER 24 HOURS 06/14 completed Not Available Not Available Not Available tramadol 50 mg tablet TAKE 1 TABLET BY MOUTH EVERY 6 HOURS NEEDED FOR PAIN 07/13 completed Not Available Not Available Not Available ondansetron 8 mg disintegrat ing tablet DISSOLVE 1 TABLET ON THE TONGUE THREE TIMES DAILY NEEDED FOR NAUSEA OR VOMITING 10/06 completed Not Available Not Available Not Available losartan 100 mg-hydrochl orothiazide 25 mg tablet 1 po qday in AM active Not Available Not Available No t Available oxycodone-a cetaminophe n 5 mg-325 mg tablet TAKE 1 TABLET BY MOUTH EVERY 4 HOURS NEEDED 07/13 completed Not Available Not Available Not Available terbinafine HCl 250 mg tablet TAKE 1 TABLET BY MOUTH ONCE DAILY WITH FOOD 03/03 completed Not Available Not Available Not Available alprazolam 0.5 mg tablet TAKE 1/2 TABLET BY MOUTH EVERY DAY NEEDED active Not Available Not Available No t Available ceftriaxone 1 gram solution for injection 1 gram 04/10 completed Not Available Not Available Not Available amoxicillin 875 mg tablet Take 1 tablet every 12 hours by oral route for 7 days active Not Available Not Available No t Available alprazolam 0.25 mg tablet TAKE 1 TABLET BY MOUTH ONCE DAILY NEEDED 10/04 completed Not Available Not Available Not Available citalopram 20 mg tablet active Not Available Not Available Not Available famotidine 20 mg tablet Take 1 tablet twice a day by oral route. 10/06 completed Not Available Not Available Not Available amitriptyli ne 25 mg tablet 1/2 tab po qhs x 7 days then increase to 1 tab po qhs active Not Available Not Available No t Available paroxetine 30 mg tablet Take 1 tablet every day by oral route. active Not Available Not Available No t Available pantoprazol e 40 mg tablet,mariam yed release Take 1 tablet every day by oral route. 06/14 completed Not Available Not Available Not Available ranitidine 150 mg tablet 06/14 completed Not Available Not Available Not Available lisinopril 10 mg tablet TAKE 1 TABLET DAILY active Not Available Not Available No t Available lansoprazol e 30 mg capsule,del ayed release Take 1 capsule every day by oral route. 02/03 completed Not Available Not Available Not Available promethazin e 25 mg/mL injection solution 1 ml IM x 1 03/01 completed [facility]-0 [phone] 1 Not Available Not Available Not Available promethazin e 25 mg tablet Take 1 tablet every 4 hours by oral route as needed. active Not Available Not Available No t Available nystatin-tr iamcinolone 100,000 unit/g-0.1 % topical cream APPLY TO THE AFFECTED AREA(S) BY TOPICAL ROUTE 2 TIMES PER DAY IN THEMORNIN G AND EVENING 04/10 completed Not Available Not Available Not Available docusate sodium 100 mg capsule TAKE ONE CAPSULE BY MOUTH TWICE DAILY 10/06 completed Not Available Not Available Not Available gabapentin 300 mg capsule 1 po qhs active Not Available Not Available Not Available diclofenac sodium 75 mg tablet,mariam yed release TAKE ONE TABLET BY MOUTH TWICE DAILY NEEDED active Not Available Not Available No t Available codeine 10 mg-guaifene sin 100 mg/5 mL oral liquid TAKE 10 ML BY MOUTH EVERY 6 TO 8 HOURS active Not Available Not Available No t Available acetaminoph en 300 mg-codeine 60 mg tablet TAKE 1 TABLET BY MOUTH EVERY 6 HOURS 06/14 completed Not Available Not Available Not Available estradiol 0.5 mg tablet Take 1 tablet every day by oral route. 06/14 completed Not Available Not Available Not Available levofloxaci n 500 mg tablet TAKE 1 TABLET BY MOUTH EVERY 24 HOURS 06/14 completed Not Available Not Available Not Available gentamicin 40 mg/mL injection solution Take 80 mg by injection route. 04/10 completed Not Available Not Available Not Available paroxetine 40 mg tablet TAKE 1 TABLET BY MOUTH ONCE DAILY 04/14 completed Not Available Not Available Not Available timolol maleate 0.5 % eye drops 10/16 completed Not Available Not Available Not Available ondansetron 4 mg disintegrat ing tablet DISSOLVE 1 TABLET IN MOUTH EVERY 6 HOURS 07/13 completed Not Available Not Available Not Available fluticasone propionate 50 mcg/actuati on nasal spray,suspe nsion 2 sprays each nostril qday 10/06 completed Not Available Not Available Not Available doxycycline hyclate 100 mg tablet Take 1 tablet twice a day by oral route for 7 days. active Not Available Not Available No t Available amoxicillin 875 mg-potassiu m clavulanate 125 mg tablet TAKE 1 TABLET BY MOUTH EVERY 12 HOURS 04/16 completed Not Available Not Available Not Available neomycin-po lymyxin-hyd rocort 3.5 mg-10,000 unit/mL-1 % ear drops,susp INSTILL 4 DROPS INTO AFFECTED EAR(S) BY OTIC ROUTE 3 TIMES PER DAY x 7 days active Not Available Not Available No t Available Estrace 0.01% (0.1 mg/gram) vaginal cream 02/03 completed Not Available Not Available Not Available escitalopra m 10 mg tablet TAKE 1 TABLET BY MOUTH ONCE DAILY 12/17 completed Not Available Not Available Not Available escitalopra m 20 mg tablet TAKE 1 TABLET BY MOUTH DAILY active Not Available Not Available No t Available aripiprazol e 10 mg tablet TAKE 1 TABLET BY MOUTH ONCE DAILY 10/06 completed Not Available Not Available Not Available aripiprazol e 5 mg tablet Take 1 tablet every day by oral route. 09/13 completed Not Available Not Available Not Available cholestyram ine (with sugar) 4 gram powder for susp in a packet 01/27 completed Not Available Not Available Not Available bupropion HCl XL 150 mg 24 hr tablet, extended release Take 1 tablet every day by oral route. active Not Available Not Available No t Available nitrofurant oin monohydrate /macrocryst als 100 mg capsule Take 1 capsule every 12 hours by oral route for 7 days. active Not Available Not Available No t Available duloxetine 30 mg capsule,del ayed release TAKE 1 CAPSULE BY MOUTH DAILY active Not Available Not Available No t Available duloxetine 60 mg capsule,del ayed release TAKE 1 CAPSULE BY MOUTH DAILY active Not Available Not Available No t Available fenofibrate 160 mg tablet Take 1 tablet every day by oral route. 06/17 completed Not Available Not Available Not Available losartan 100 mg-hydrochl orothiazide 12.5 mg tablet Take 1 tablet every day by oral route. 2023 active Not Available Not Available Not Avai lable ProAir HFA 90 mcg/actuati on aerosol inhaler Inhale 2 puffs every 4 hours by inhalatio n route. 2023 active Not Available Not Available Not Avai lable quetiapine 50 mg tablet 1 po qhs active Not Available Not Available Not Available Symbicort 80 mcg-4.5 mcg/actuati on HFA aerosol inhaler Inhale 1 puff twice a day by inhalatio n route. 01/27 completed Not Available Not Available Not Available quetiapine ER 50 mg tablet,exte nded release 24 hr Take 1 tablet by mouth once daily 10/06 completed Not Available Not Available Not Available Xigduo XR 10 mg-1,000 mg tablet,exte nded release active Not Available Not Available Not Available Trintellix 10 mg tablet Take 1 tablet every day by oral route. 06/14 completed Not Available Not Available Not Available Altreno 0.05 % lotion 10/06 completed Not Available Not Available Not Available Paxlovid 300 mg (150 mg x 2)-100 mg tablets in a dose pack 1 dose po bid x 5 days 09/30 completed Not Available Not Available Not Available Vitals Date Recorded Body height Body mass index (BMI) Body weight Body temperature Provider Name and Address Organization Details Last Updated DateTime 10/06/2022 160.02 cm 34.5 kg/m2 17812.51 g 97.6 [degF] Rhea Riddle CMA [facility] [employer] 10/06/2022 12:15:21 Date Recorded Body height Body mass index (BMI) Body weight Body temperature Heart rate Oxygen saturation Oxygen saturation in Arterial blood by Pulse oximetry Systolic blood pressure Diastolic blood pressure Provider Name and Address Organization Details Last Updated DateTime 3 160.02 cm 35.6 kg/m2 32500.0 7 g 97.3 [degF] 71 /min 98 % 98 % 120 mm[Hg] 78 mm[Hg] Sindy Ventura RN [facility] [employer] 3 08:39:18 Date Recorded Body height Body mass index (BMI) Body weight Heart rate Respiratory rate Oxygen saturation Oxygen saturation in Arterial blood by Pulse oximetry Systolic blood pressure Diastolic blood pressure Provider Name and Address Organization Details Last Updated DateTime 3 160.02 cm 35.4 kg/m2 44843.4 7 g 65 /min 16 /min 95 % 95 % 130 mm[Hg] 82 mm[Hg] FRANKLIN Burton [facility] [employer] 3 10:04:42 Date Recorded Body height Body mass index (BMI) Body weight Body temperature Oxygen saturation Oxygen saturation in Arterial blood by Pulse oximetry Heart rate Systolic blood pressure Diastolic blood pressure Provider Name and Address Organization Details Last Updated DateTime 4 160.02 cm 36 kg/m2 57051.2 5 g 97.9 [degF] 96 % 96 % 78 /min 166 mm[Hg] 82 mm[Hg] Concepcion Cuadra RN [facility] [employer] 4 08:50:08 Date Recorded Body height Body mass index (BMI) Body weight Body temperature Heart rate Oxygen saturation Oxygen saturation in Arterial blood by Pulse oximetry Systolic blood pressure Diastolic blood pressure Provider Name and Address Organization Details Last Updated DateTime 4 160.02 cm 33.3 kg/m2 39464.3 7 g 98 [degF] 123 /min 97 % 97 % 146 mm[Hg] 84 mm[Hg] Concepcion Cuadra RN [place] [facility] [employer] 4 14:08:00 Social History Question Answer Notes LastModified by Organizat ion Details LastModified Time Tobacco Smoking Status Former Smoker quit 1997 Not Available [employer] 08/04/2022 15:58:47 Do You Have An Advance Directive? No [id number] Information not available 08/04/2022 What Is Your Level Of Alcohol Consumption? Occasional [id number] Information not available 08/04/2022 What Is Your Level Of Caffeine Consumption? Occasional [id number] Information not available 08/04/2022 In The 14 Days Before Symptom Onset, Have You Had Close Contact With A Laboratory-confir med COVID-19 While That Case Was Ill? No [email or web address] Information not available 12/17/2022 In The 14 Days Before Symptom Onset, Have You Had Close Contact With A Person Who Is Under Investigation For COVID-19 While That Person Was Ill? No [id number] Information not available 08/04/2022 Are You Currently Employed? No [email or web address] Information not available 12/17/2022 What Type Of Diet Are You Following? 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 No Information not available 12/17/2022 Do You Have A Medical Power Of Wind Site Manager? No [id number] Information not available 08/04/2022 What Was The Date Of Your Most Recent Tobacco Screening? 10/16/2020 [id number] Information not available 08/04/2022 Do You Use Your Seat Belt Or Car Seat Routinely? Yes [email or web address] Information not available 12/17/2022 Do You Have Smoke And Carbon Monoxide Detectors In Your Home? Yes Information not available 12/17/2022 Do You Use Any Illicit Or Recreational Drugs? No [email or web address] Information not available 12/17/2022 Do You Use Sunscreen Routinely? No [id number] Information not available 08/04/2022 Have You Recently Traveled Abroad? No [id number] Information not available 08/04/2022 Do You Have Any Dietary Restrictions? No Information not available 12/17/2022 Do You Or Have You Ever Used Any Other Forms Of Tobacco Or Nicotine? No [email or web address] Information not available 12/17/2022 Sex: Unknown Functional Status Question Answer Note LastModified by Organizat ion Details LastModified Time What is your exercise level? Occasional [id number] Information not available 08/04/2022 Mental Status None recorded. Family History Relationship Description Onset Age of this Age Resolved Age Notes LastModified by Organization Details LastModified Time Mother Malignant tumor of lung [email or web address] Not available 04/16 14:01:55 Father Diabetes mellitus [id number] Not available 08/04/2022 15:58:50 Brother Myocardial infarction [id number] Not available 08/04/2022 15:58:50 Maternal Grandmother Malignant neoplasm of liver Not available 04/16 14:01:55 Sister Rheumatoid arthritis [email or web address] Not available 04/16 14:01:55 Daughter Danica thyroiditis [email or web address] Not available 04/2024 14:01:55 Medical History Condition Response BLINDNESS N RHEUMATIC FEVER N KIDNEY STONES N BLADDER PROBLEMS N MRSA N OTHER # 1 N POLIO N LUNG DISEASE/DISORDER N COPD N RADIATION / CHEMOTHERAPY N Other # 2 N BLOOD DISEASES N SURGERY N EAR OR HEARING PROBLEMS N MUMPS N FEMALE PROBLEMS / INFECTIONS N DEPRESSION (INCLUDING POST ) N BOWEL PROBLEMS N STROKE/TIA N THYROID DISEASE N ULCERS N BENIGN PROSTATIC HYPERPLASIA N MEASLES N CERVICALGIA N TB SKIN TEST N MYOCARDIAL INFARCTION N OBESITY N PARAPELGIA N GERD/NAUSEA N ANEURYSM N URINARY/BLADDER/KIDNEY PROBLEMS N CORONARY ARTERY DISEASE (CAD) N MENIERE'S DISEASE N ADDICTION CONCERNS N ENDOMETRIOSIS N USE OF BLOOD THINNERS N SKIN PROBLEMS N EMPHYSEMA N GASTROINTESTINAL DISORDER N MUSCLE,JOINT OR BONE PROBLEMS N GASTROINTESTINAL BLEEDING N BLOOD CLOTS N ASTHMA N CATARACTS N ERECTILE DYSFUNCTION N GI PROBLEMS N CHF N Low Testosterone N NEUROPATHY N INFERTILITY N AIDS/HIV N FRACTURES N CHEMOTHERAPY / RADIATION N VISION/EYE PROBLEMS N LIVER DISEASE N MALE HYPOGONADISM N HYPERTENSION N TOURETTE'S N ANXIETY DISORDER N BLOOD TRANSFUSION N ANEMIA/BLOOD DISORDER N CHRONIC EAR INFECTIONS N BRONCHITIS N TUBERCULOSIS N GLAUCOMA N FOOT PROBLEM N DIVERTICULITIS N CHICKENPOX N SLEEP APNEA N ALLERGIES/HAYFEVER N INFECTIOUS DISEASE N HEART ARRHYTHMIA N PROSTATE N INSOMNIA N HIGH CHOLESTEROL / HYPERLIPIDEMIA N EYE PROBLEMS N HYPERTHYROIDISM N EATING DISORDER N EDEMA N CHRONIC PAIN SYNDROME N CAROTID BLOCKAGE N CONSTIPATION N BACK / NECK PROBLEMS N HAVE YOU BEEN HOSPITALIZED OR SEEN IN [facility] IN THE PAST YEAR ? N ATHEROSCLEROSIS N BREAST PROBLEMS N DIALYSIS N ECZEMA N FIBROMYALGIA N OSTEOPOROSIS N ARTHRITIS N NO SIGNIFICANT PAST MEDICAL HISTORY N APPENDICITIS N DIABETES, TYPE N BAD TEETH N HEARTBURN / REFLUX N ADD/ADHD N AUTISM SPECTRUM DISORDER (ASD) N HEPATITIS / LIVER DISEASE N PULMONARY DISEASE N GOUT N SLEEP DISORDER N ALZHEIMER'S DISEASE N PAIN N HERPES N DEMENTIA N SEIZURES/EPILEPSY N HEADACHES/MIGRAINES N VASCULAR DISEASE N PACEMAKER N DIZZINESS N KIDNEY DISEASE N HEART DISEASE/HEART PROBLEMS N SCARLET FEVER N MULTIPLE SCLEROSIS N MENTAL DISORDER/ILLNESS N DEVELOPMENTAL OR BEHAVIORAL DISORDERS N CARDIAC ARRHYTHMIA N CANCER: SPECIFY N PNEUMONIA N Gall Stones N ATRIAL FIBRILLATION N PULMONARY EMBOLISM N AUTOIMMUNE DISEASE N Gynecological History Statement/Question Response Date of Last Mammogram Date of Last Colonoscopy Most Recent Mammogram 08/04/2023 Obstetrics History GPAL:G 0 P 0 0 0 0 Immunizations Vaccine Type Date Status Note Provider Nam e and Address Organization Details Recorded Time pneumococcal polysaccharide PPV23 4 completed Rhea James MD [address] [place] [address], [id number], [facility] [employer] 08/04/2023 18:13:44 Pneumococcal conjugate PCV 13 2 completed Not Available [facility] 08/04/2022 16:03:42 Influenza, split virus, quadrivalent, PF 9 completed Not Available [facility] 08/04/2022 16:03:42 Influenza, split virus, quadrivalent, PF 8 completed Not Available [facility] 08/04/2022 16:03:42 Influenza, split virus, quadrivalent, PF 4 completed Not Available [facility] 08/04/2022 16:03:42 Influenza, split virus, quadrivalent, PF 2 completed Not Available [facility] 08/04/2022 16:03:42 Influenza, split virus, quadrivalent, PF 1 completed Not Available [facility] 08/04/2022 16:03:42 Influenza, split virus, quadrivalent, preservative 6 completed Not Available [facility] 08/04/2022 16:03:42 Past Encounters Encounter ID Performer Location Encounter Start Date Encounter Closed Date Diagnosis/Indication Diagnosis SNOMED-CT Code Diagnosis ICD10 Code Diagnosis Note [id number] [facility] [place] [address] [place] [address] 10/16/2020 00:00:00 10/20/2020 10:10:47 [id number] [facility] [place] [address] [place] [address] 11/10/2020 00:00:00 11/10/2020 10:02:39 [id number] [facility] [place] [address] [place] [address] 02/12/2021 00:00:00 02/12/2021 09:26:30 [id number] [facility] [place] [address] [place] [address] 03/03/2022 00:00:00 03/03/2022 13:15:29 [id number] [facility] [place] [address] [place] [address] 04/14/2022 00:00:00 04/14/2022 10:08:38 [id number] [facility] [place] [address] [place] [address] 05/13/2022 00:00:00 05/13/2022 08:57:42 [id number] [facility] [place] [address] [place] [address] 06/14/2022 00:00:00 06/14/2022 12:48:51 [id number] [facility] [place] [address] [place] [address] 06/29/2022 00:00:00 06/30/2022 12:52:54 [id number] [facility] Primary Care Gurwinder [address] [address] [facility] [address] [place] [address] 08/03/2022 00:00:00 08/03/2022 10:38:50 [id number] Anthony Benito MD [facility] [place] [address] [place] [address] 10/06/2022 11:50:09 10/06/2022 14:07:48 Dysfunction of bilateral eustachian tubes [id number] H69.93 [id number] FLORENCE Hilario [facility] Primary Care Tsaileronen felix [address] [facility] [address] [place] [address] 12/03/2022 08:25:22 12/03/2022 13:58:57 Mixed anxiety and depressive disorder [id number] F41.8 She has just tried increasing escitalopr am to 20mg 2 days ago, will continue with higher dose. She has not taken the alprazolam , I have advised her if she feels she needs it to start cutting tablets in half and take PRN. We will give time for increased dose of escitalopr am to start working.Di scussed counseling but she is not interested at this time.F/u in 3-4 weeks. If still no improvemen t, then will need to discuss other medication options. She states she has been on multiple medication s in the past and has had some trouble when trying to switch medication s. [id number] Maude Abad, [facility] Pulmonolo gy [place] [address] [place] [address] 12/17/2022 09:53:18 12/17/2022 13:14:44 Obstructive sleep apnea syndrome [id number] G47.33 Home sleep study 07/2022 with AHI 10New raking machine operator 10/18/22Do wnload today with 97% use greater than 4 hours.APAP 5-15 cmMedian pressure 8.3AHI is 1.1ESS 6OSA is well correctedE ncouraged 100% compliance with all sleepFollo w with PCM for labsAdvise d good sleep habits and patterns:- Set a goal for at least 7 to 8 hours of sleep time per day.-Use the bed mainly for sleep and to go to bed only when tired. If unable to fall asleep after 30 minutes, patient should get out of bed but should not engage in any activity that requires sustained mental alertness. -Maintain a regular bedtime and wake-up time even on weekends-A void excessive naps during the daytime. If a nap is necessary, limit it to no more than 30 minutes.-M inimize environmen [place] noise, bright lights, and extremes in bedroom temperatur e.-Avoid alcohol, caffeinate d beverages, and nicotine products for at least 6 hours prior to bedtime.-A void strenuous exercise and large meals for at least 4 hours prior to bedtime.Or david for nasal pillows today.Disc ussed supply cleaning and reordering RTC in 3 months, PRN for concerns [id number] Rhea James MD [facility] Primary Care [facility] [address] [facility] [address] [place] [address] 07/13/2023 08:46:05 07/13/2023 09:24:38 Adult health examination [id number] Z00.00 [facility] up to dateRecomm end shingrix seriesHas gotten flu vaccine and covid boosterPre vnar 13 done 02/25Pneumo vax 23 todayColon oscopy 10/09/2015-r epeat 10 years Pain of bi lateral knee joints [id number] 35424 M25.561 M25.562 Hyperlipidemia 49007859 E78.5 labs reviewed-i mproved compared to last yearcontin ue healthy diet/exerc ise Hyperglycemia 41600968 R 73.9 a1c stablecont inue healthy diet/exerc iserepeat in 1 year Serum iron above reference range 744820952 R79.0 ferritin elevatedho ld MVIrepeat labs in 4 weeks Active or passive immunization 850809702 Z23 [id number] FELY Casarez [facility] Primary Care [facility] [address] [facility] [address] [place] [address] 04/16/2024 13:59:05 04/16/2024 15:32:36 Former heavy tobacco smoker [id number] 05616 Z87.891 Anxiety 63042957 F41.9 Depressive disorder 3548 9007 F32.A Patient will continue to follow up with psych as scheduled. Patient does not feel like her medication s are helping her, will discuss at her next appointmen tAmara Lewis SI/HI. Essential hypertension 38960310 I10 146/84.Chriss l refill meds and check labs as listed below.Disc ussed DASH diet. Hyperlipidemia 99491508 E78.5 Hyperglycemia 95107401 R 73.9 Increased liver function 42975933 R94.5 Acute uppe r respiratory infection 44295679 J06.9 Vitamin D deficiency 347 93016 E55.9 Health Concerns Section Related Observation LastModified by Organization Detai ls LastModified Time None Recorded Concern Status LastModified by Organization Details LastModified Time None Recorded Advance Directives Directive N: Payers Encounter Date Sequence Insurance Name Policy Number Policy Trent Covered Member ID Trent Member ID Guarantor Name 10/06/2022 1 [place] [id number] Marcos Burleson Bruno [id number] Tere Burleson Olsenbeatrice Carr 12/03/2022 1 [place] [id number] Marcos Burleson Bruno [id number] Tere Olsen Bruno 12/17/2022 1 [place] [id number] Marcos Burleson Bruno [id number] Tere Olsen Bruno 07/13/2023 1 [place] [id number] Marcos Burleson Bruno [id number] Tere Burleson Olsen Bruno 04/16/2024 1 [place] Tere Robbins Bruno [id number] Tere Burleson Olsenbeatrice Carr 04/16/2024 2 [employer] (MEDICARE SUPPLEMENT) Tere uBrleson Olsen Bruno [id number] Tere Burleson Olsen Bruno Notes Date Note Type Note Provider Name and Address Organization Details Recorded Time 10/06/2022 text/html this patient has been having bilateral ear pressure for months she has been on 2 rounds of antibiotics but it is not cleared. She was told that she has fluid in both ears. She does have some ringing and does wear hearing aids. She has been on Flonase and allergy pills there is no asymmetry. She does report a lot of pressure when descending in an airplane an on [place]. Anthony Benito MD [address], [place], [address], [employer] 10/06/2022 12:42:33 12/03/2022 text/html Pt. states she h as been struggling with anxiety/depression. They have a trip coming up to [place] and states it is hard for her to be excited about it due to her anxiety/depression. FLORENCE Hilario [address], [place], [address], [employer] 12/03/2022 10:08:29 12/17/2022 text/html Ms Carr present s today to establish care for further evaluation of RAINER and new PAP machine.Set up on CPAP many years ago, needed new study to qualify for a new machine.Home study completed 07/2022She was set up with new PAP a few months ago and reports she has had no difficulty with useEndorses mild xerostomia, has not adjusted humidityNocturia is unchanged at 2x nightlyDoes not fall asleep unintentionally during the day.No morning headaches, GERD, sinus congestion.She has been using the nasal wisp but does not like this and would like to go back to her nasal pillows.Reviewed medical and surgical historyReviewed social and family historyReviewed PCM notes and testingReviewed medications and allergies Maude Abad, MICROBIOLOGY SUPERVISOR-BC [address], [place], [address], [employer] 12/17/2022 15:24:32 04/16/2024 text/html Patient is a 64 year old female that presents to the office for follow up and medication refills. Patient's last appointment was in July when she was seeing Dr. James. Patient was prescribed Augmentin on 03/27/24 for acute sinusitis, followed up with ENT on 03/29/24 and was also prescribed Prednisone. Patient reports after a few days on the medications she had new symptoms develop that have not subsided. Patient reports her main issue now is a productive cough with green sputum. Patient denies fevers, body aches and chills. Patient reports her right thumb and first finger occasionally cramp up to where she cannot move them. Patient requesting LDCT scan due to history of smoking, patient reports she quit smoking 26 years ago and smoked for approximately 26 years prior to quitting. Patient reports she smoked 1 to 1 1/2 packs per day. Patient also has family history of lung cancer. Patient denies chest pain and shortness of breath. Kimberly Stiles, MICROBIOLOGY SUPERVISOR-C [address] [facility], [facility] [address], [place], [address], [facility] 04/16/2024 15:34:48 OBGyn Episode No OBEpisode recorded.
--- OUTSIDE RECORDS SUMMARY | 2024-09-25 03:42 | XMS_ITS | Clinical Summary ---
Author Organization [facility] Address [address] [place] [address] Phone Care Team Providers Care Vmware Administrator Name Role Phone Zane Soriano MD Primary Care Provider [phone] Allergies No known active allergies Medications lisinopril [...] MD Referring Provider: Esme White MD [address] [address] [address] [place] [address] Other: Problem Noted Date Diagnosed Date Abnormal [...] on file Legal Sex Female 4:40 AM MANAGER PEST Gender Identity Not on file Sexual Orientation Not on file Last Filed Vital Signs Vital Sign Reading Time Taken Comments Blood Pressure 139/82 05/01/2012 1:55 PM MANAGER PEST Pulse - - Temperature - - Respiratory Rate - - Oxygen Saturation - - Inhaled Oxygen Concentration - - Weight 83.5 kg (184 lb) 05/01/2012 1:55 PM MANAGER PEST Height 158.8 cm (5' 2.5 ) 05/01/2012 1:55 PM CS T Body Mass Index 33.12 05/01/2012 1:55 PM MANAGER PEST Plan of Treatment Health Maintenance Due Date [...] OR WO CAD Routine 05/01/2012 3:58 PM MANAGER PEST Abnormal mammogram from Last 3 Months or Most Recently Relevant to Health Maintenance Results * MAMMO DIGITAL DIAG UNI LEFT (05/01/2012 3:58 PM MANAGER PEST) Anatomical Region Laterality Modality Breast Left Mammography 05/01/2012 3:58 PM MANAGER PEST Impressions 05/02/2012 8:41 AM MANAGER PEST IMPRESSION: Technically successful ultrasound-guided core biopsy with tissue marker placement. Narrative 05/02/2012 8:41 AM MANAGER PEST LEFT BREAST ULTRASOUND. 05/01/12 HISTORY: Patient has [...] BCBS BLUE ACCESS/TRUE BLUE PPO Care Teams Vmware Administrator Relationship Specialty Start Date End Date Zane Soriano MD PCP - General Internal Medicine 05/01/12
--- OUTSIDE RECORDS SUMMARY | 2024-09-25 03:42 | XMS_ITS | Clinical Summary ---
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
--- OUTSIDE RECORDS SUMMARY | 2024-09-25 03:42 | XMS_ITS | Clinical Summary ---
Author Organization [facility] Address [address] [place] [address] Care Team Providers Care Cocoa Mill Operator Name Role Phone Kimberly Stiles Ty [facility] Primary Care Provider + Source Comments [facility],non-owned Affiliates and Associated Physician Practices is amultiple site organization consisting of ambulatory clinics and hospital sitesin [place], [place], [place]. This disclosure is being madepursuant to the Care Everywhere program and may not contain all information available regarding this patient. Last updated 18.[facility] [employer] Allergies Active Allergy Reactions Criticality Noted Date Comments Naproxen Other Low 12/19/2017 CANT TAKE NSAIDS DUE TO IBSD Medications * Be aware that medications may not be up to date on this document. Alwaysverify current medications with the patient. escitalopram (Lexapro) 20 MG tablet Take 1 (one) tablet by mouth once daily 10/24/2023 Active DULoxetine (Cymbalta) 60 MG capsule Take 1 (one) capsule by mouth once daily Active latanoprost (Xalatan) 0.005 % ophthalmic solution INSTILL 1 DROP INTO EACH EYE IN THE EVENING Active losartan-hydroC HLOROthiazide (Hyzaar) 100-25 MG tablet Take 1 (one) tablet by mouth once daily Active Xigduo XR 10-1000 MG tablet Take 1 (one) tablet by mouth daily with food Do not crush or chew. KEV-1 90 tablet 1 05/22/2024 Active Encounters Date Type Department Care Team Description 07/26/2024 Telephone [facility] - Endocrinology [address] [place] [address] Niya Dominguez, senior quality analyst Patient Assistance Program from Last 3 Months Social History Tobacco Use Types Packs/Day Years Used Date Smoking Tobacco: Never Assessed Comments Unknown Sex and Gender Information Value Date Recorded Sex Assigned at Not on file Legal Sex Female 6:24 AM SALESPERSON TERRAZZO TILES Gender Identity Not on file Sexual Orientation Not on file Last Filed Vital Signs Vital Sign Reading Time Taken Comments Blood Pressure 126/76 05/04/2024 9:21 AM SALESPERSON TERRAZZO TILES Pulse 96 05/04/2024 9:21 AM SALESPERSON TERRAZZO TILES Temperature - - Respiratory Rate - - Oxygen Saturation 96% 05/04/2024 9:21 AM SALESPERSON TERRAZZO TILES Inhaled Oxygen Concentration - - Weight 83.3 kg (183 lb 11.2 oz) 11:00 AM SALESPERSON TERRAZZO TILES Standing Height 158.8 cm (5' 2.5 ) 05/22/2024 11 :00 AM SALESPERSON TERRAZZO TILES Body Mass Index 33.06 05/22/2024 11:00 AM SALESPERSON TERRAZZO TILES Plan of Treatment Upcoming Encounters Date Type Department Care Team (Late st Contact Info) Description 11/02/2024 9:30 AM CDT Office Visit [facility] - Endocrinology [address] [place] [phone] Jose Ovalles MD [address] [place] [address] Health Maintenance Due Date Last Done Comments [...] VACCINE (1 of 2) 2008 COVID-19 VACCINE ( season) 2024 DEPRESSION SCREENING 06/06/2024 INFLUENZA VACCINE [...] OF CARE (AMB) Routine 05/04/2024 9:48 AM SALESPERSON TERRAZZO TILES Type 2 diabetes mellitus without complication, without long-term current use of insulin from Last 3 Months or Most Recently Relevant to Health Maintenance Results * HEMOGLOBIN A1C - POINT OF CARE (AMB) (05/04/2024 9:48 AM SALESPERSON TERRAZZO TILES) Hemoglobin A1c POCT 5.9 % Expiration Date 01/25 Lot # [id number] QC Verified Yes Yes Blood BLOOD SPECIMEN / Unknown 05/04/2024 9:48 AM SALESPERSON TERRAZZO TILES us Jose Ovalles MD LAB - POINT OF CARE ORDERABL ES Final Result from Last 3 Months or Most Recently Relevant to Health Maintenance Insurance MEDICARE [facility] [place] [address] Care Teams Cocoa Mill Operator Relationship Specialty Start Date End Date Kimberly Stiles, LATHE MACHINIST-UTILITIES ESTIMATOR AND DRAFTER [address] [phone] PCP - General Family Medicine 05/04/24
--- OUTSIDE RECORDS SUMMARY | 2024-09-25 03:42 | XMS_ITS | Referral Summary ---
Author Organization [facility] [address] [place] [address] Care Team Providers Care Children'S Minister Name Role Phone Rhea James MD Primary [...] on file Legal Sex Female 11:18 AM SKIVING MACHINE OPERATOR Gender Identity Not on file Sexual Orientation [...] J Payer ID:[id number] (NAIC) Type: JEAN Address: [facility] [address] [id number] ANTHEM ACCESS Care Teams Children'S Minister Relationship Specialty Start Date End Date Rhea James MD PCP - General 09/03/16
--- OUTSIDE RECORDS SUMMARY | 2024-09-25 03:43 | XMS_ITS | Clinical Summary ---
Author Organization [facility] Address [address] [place] [address] Care Team Providers Care Immigration Consultant Name Role Phone Rhea James MD Primary Care Provider [phone] Social History Tobacco Use Types Packs/Day Years [...] 1 - Tdap) 1977 Mammogram Screening 1998 Pneumococcal Vaccine: 50+ Years (1 of 1 - PCV) 2008 Zoster Vaccines (1 of 2) 2008 Annual Medicare Wellness Visit 2023 Dexa Scan (General) 2023 COVID-19 Vaccine (3 - 2023-2 5 [...] complete this topic Insurance MEDICARE Care Teams Immigration Consultant Relationship Specialty Start Date End Date Rhea James MD [address] [place] [address] [place] [address] PCP - General FAMILY PRACTICE 02/12/21
--- OUTSIDE RECORDS SUMMARY | 2024-09-25 03:43 | XMS_ITS | Patient Health Record ---
Author Organization [facility] As [facility] Address [address] [place] [address] Care Team Providers Care Meat Slicer Name Role Phone Jacob [employer], Rhea Primary Care Provider Valerie Joe Unavailable [phone] HemZahra talley Unavailable [phone] Migration, Provider Unavailable Unavailable Allergies No Known [...] N Secobarbital (Bar) N Oxazepam (BZO) P 0-hgvkcqrxkm-4,1-ooqvngyj-1, 3-diphenylpyrrolidine (EDDP) N Methamphetamine (MET) N Methylenedioxymethamphetamine (MDMA) N Morphine (MOP 300/TPM1845) N Methadone (MTD) N Phencyclidine (PCP) N Nortriptyline (TCA) N x N Reason For Referral No Information Medications Medication SIG (Take, Route, Frequency, Duration) Notes Start Date End Date Status DULoxetine HCl 60 MG 1 capsule Oral Once a day for 30 days Active HYDROcodone-Acetaminophen 5-325 MG Oral 10/24/2023 Not-Taking Ondansetron [...] W/U Status Risk Notes Problem Cannabis dependence (33276010) Cannabis dependence, uncomplicated (F12.20) 4 Active confirmed Problem Mild recurrent major depression (82834835) Major depressive disorder, recurrent, mild (F33.0) 4 Active confirmed Problem Generalized anxiety disorder (14165693) Generalized anxiety disorder (F41.1) 4 Active confirmed Problem Sleep apnea (27751847) Sleep apnea, unspecified (G47.30) 4 Active confirmed Problem 586900365 On m[facility]p jazlyn g therapy (Z79.899) Active confirmed Vital Signs Heart Rate 83 /min 07/26/2024 Respiratory Rate 18 /min 11/28/2023 Height-cm 157.48 cm 07/26/2024 Blood pressure diastolic 85 mm Hg 07/26/2024 Weight-kg 82.55 kg 07/26/2024 Height 62.00 in 07/26/2024 Blood pressure systolic 125 mm Hg 07/26/2024 Weight 182 lbs 07/26/2024 BMI 33.28 kg/m2 07/26/2024 Encounters Encounter Location Date Provider Diagnosis [facility] [address] [facility] [address] [place] [address] 10/24/2023 Valerie Theradalberto Major depressive disorder, recurrent, mild F33.0 ; Sleep apnea, unspecified G47.30 ; Cannabis dependence, uncomplicated F12.20 and Generalized anxiety disorder F41.1 [facility] [place] [address] [address] 11/28/2023 Valerie Theradalberto Major depressive disorder, recurrent, mild F33.0 ; Generalized anxiety disorder F41.1 ; Sleep apnea, unspecified G47.30 ; Cannabis dependence, uncomplicated F12.20 and Other [facility] (current) drug therapy V58.69 [facility] [address] [address] 03/16/2024 Valerie Theradalberto Major depressive disorder, recurrent, mild F33.0 ; Generalized anxiety disorder F41.1 ; Sleep apnea, unspecified G47.30 ; Cannabis dependence, uncomplicated F12.20 and On ocean transportation intermediary drug therapy Z79.899 [facility] [address] [address] 05/15/2024 Valerie Thery Major depressive disorder, recurrent, mild F33.0 ; Generalized anxiety disorder F41.1 ; Sleep apnea, unspecified G47.30 ; Cannabis dependence, uncomplicated F12.20 and On ocean transportation intermediary drug therapy Z79.899 [facility] [address] [address] 07/26/2024 Valerie Thery Major depressive disorder, recurrent, mild F33.0 ; Generalized anxiety disorder F41.1 ; Sleep apnea, unspecified G47.30 ; Cannabis dependence, uncomplicated F12.20 and On [facility] drug therapy Z79.899 [facility], [facility] [address] [place] [address] 08/02/2024 Zahra Hemann Generalized anxiety disorder F41.1 and Major depressive disorder, recurrent, mild F33.0 [facility], [facility] [address] [place] [address] 09/28/2023 Provider Migration [facility], [facility] [address] [place] [address] 10/22/2023 Provider Migration [facility], [facility] [address] [place] [address] 10/23/2023 Provider Migration [facility], [facility] [address] [place] [address] 12/30/2023 Valerie Thery Major depressive disorder, recurrent, mild F33.0 [facility], [facility] [address] [place] [address] 02/10/2024 Valerie Thery Major depressive disorder, recurrent, mild F33.0 [facility], [facility] [address] [place] [address] 02/27/2024 Valerie Thery [facility], [facility] [address] [place] [address] 05/14/2024 Valerie Thery Major depressive disorder, recurrent, mild F33.0 [facility], [facility] [address] [place] [address] 07/06/2024 Valerie Thery [facility], [facility] [address] [place] [address] 07/06/2024 Valerie Thery Major depressive disorder, recurrent, mild F33.0 [facility], [facility] [address] [place] [address] 09/24/2024 Avlerie Thery Major depressive disorder, recurrent, mild F33.0 [facility], [facility] [address] [place] [address] 12/06/2023 Valerie Thery Major depressive disorder, recurrent, mild F33.0 [facility], [facility] [address] [place] [address] 01/30/2024 Valerie Rodrigez Assessments Encounter Date Diagnosis (ICD Code) Assessment Notes Treatment Notes Treatment Clinical Notes Section Notes 12/06/2023 Major depressive disorder, recurrent, mild (ICD-10 - F33.0) 02/10/2024 Major depressive disorder, recurrent, mild (ICD-10 - F33.0) 10/24/2023 Cannabis dependence, uncomplicated (ICD-10 - F12.20) 10/24/2023 Major depressive disorder, recurrent, mild (ICD-10 - F33.0) 10/24/2023 Generalized anxiety disorder (ICD-10 - F41.1) 10/24/2023 Sleep apnea, unspecified (ICD-10 - G47.30) 03/16/2024 Major depressive disorder, recurrent, mild (ICD-10 - F33.0) 1. Mild recurrent major depression- Lexapro 20 mg daily discuss and educated on Cymbalta help with depression and anxiety and also help with chronic pain, will increase Cymbalta 60 mg daily in am- will monitor for fatigue http_s://www.ni .nih.gov/heal th/topics/menta t-wgxjit-yzknpd tions http_s://www.na mi.org/About-Me ntal-Illness/Tr eatments/Mental -Health-Medicat ions [...] will monitor for fatigue http_s://www.ni .nih.gov/heal th/topics/menta q-niqaqh-vdhmcd tions http_s://www.na mi.org/About-Me ntal-Illness/Tr eatments/Mental -Health-Medicat ions [...] PCP sheduled and labs Discussion Notes 11/28/2023 Major depressive disorder, recurrent, mild (ICD-10 - F33.0) 1. Mild recurrent major depression- Lexapro 20 mg daily discuss and educated on Cymbalta help with depression and anxiety and also help with chronic pain, Cymbalta 60 mg daily in am- will monitor for fatigue http_s://www.ni .nih.gov/heal th/topics/menta g-gufpni-qufuyw tions http_s://www.na mi.org/About-Me ntal-Illness/Tr eatments/Mental -Health-Medicat ions [...] days. Qty: (30) capsule Refills: 0 Pharmacy: [facility] 256 escitalopram 20 mg tablet - Take 1 tablet(s) every day by oral route in the morning for 90 days. Qty: (90) tablet Refills: 0 Pharmacy: [facility] 256 2. Generalized anxiety disorder -Lexapro 20 [...] daily in am- will monitor for fatigue http_s://www.[facility].nih.gov/heal th/topics/menta x-isuuwj-kogwys tions http_s://www.na mi.org/About-Me ntal-Illness/Tr eatments/Mental -Health-Medicat ions [...] days. Qty: (30) capsule Refills: 0 Pharmacy: [facility] 256 escitalopram 20 mg tablet - Take 1 tablet(s) every day by oral route in the morning for 90 days. Qty: (90) tablet Refills: 0 Pharmacy: [facility] 256 2. Generalized anxiety disorder -Lexapro 20 [...] and labs PCP from refer note 09/27/23 12/30/2023 Major depressive disorder, recurrent, mild (ICD-10 - F33.0) 08/02/2024 Generalized anxiety disorder (ICD-10 - F41.1) 09/24/2024 Major depressive disorder, recurrent, mild (ICD-10 - F33.0) 07/26/2024 Major depressive disorder, recurrent, mild (ICD-10 - F33.0) 1. major depression- Lexapro 20 mg daily discuss and educated on Cymbalta help with depression and anxiety and also help with chronic pain, Cymbalta 60 mg daily in am- Therapy scheduled JENNIFER refer to therapy http_s://www.ni .nih.gov/heal th/topics/menta p-krhpzn-woenrz tions http_s://www.na la.org/About-Me ntal-Illness/Tr eatments/Mental -Health-Medicat ions educated on all [...] carolee information: http_s://chapin.n ih.gov/publicat ions/drugfacts/ cannabis-mariju carolee http_s://www.[employer]/c oysqdlw-hes-tel order-marijuana -adhd/ 4. Sleep apnea-CPAP- sleep provider and PCP PCP seen for CPAP PCP sheduled and labs Discussion Notes therapy scheduled JENNIFER- 05/15/2024 Major depressive disorder, recurrent, mild (ICD-10 - F33.0) 1. major depression- Lexapro 20 mg daily discuss and educated on Cymbalta help with depression and anxiety and also help with chronic pain, Cymbalta 60 mg daily in am- will monitor for fatigue refer to therapy http_s://www.ni mh.nih.gov/heal th/topics/menta g-zddnfx-mtqjlk tions http_s://www.na mi.org/About-Me ntal-Illness/Tr eatments/Mental -Health-Medicat ions [...] CPAP PCP sheduled and labs Discussion Notes 07/06/2024 Major depressive disorder, recurrent, mild (ICD-10 - F33.0) 05/14/2024 Major depressive disorder, recurrent, mild (ICD-10 - F33.0) 05/15/2024 Generalized anxiety disorder (ICD-10 - F41.1) 1. major depression- Lexapro 20 mg daily discuss and educated on Cymbalta help with depression and anxiety and also help with chronic pain, Cymbalta 60 mg daily in am- will monitor for fatigue refer to therapy http_s://www.ni .nih.gov/heal th/topics/menta w-pofogu-oodxwe tions http_s://www.na mi.org/About-Me ntal-Illness/Tr eatments/Mental -Health-Medicat ions [...] PCP sheduled and labs Discussion Notes 07/26/2024 Generalized anxiety disorder (ICD-10 - F41.1) 1. major depression- Lexapro 20 mg daily discuss and educated on Cymbalta help with depression and anxiety and also help with chronic pain, Cymbalta 60 mg daily in am- Therapy scheduled JENNIFER refer to therapy http_s://www.[facility].nih.gov/heal th/topics/menta g-lbjben-oejagj tions http_s://www.na mi.org/About-Me ntal-Illness/Tr eatments/Mental -Health-Medicat ions [...] carolee information: http_s://chapin.n ih.gov/publicat ions/drugfacts/ cannabis-mariju carolee http_s://www.[employer]Borqs/c srijevw-axi-wce order-marijuana -adhd/ 4. Sleep apnea-CPAP- sleep provider and PCP PCP seen for CPAP PCP sheduled and labs Discussion Notes therapy scheduled JENNIFER- 08/02/2024 Major depressive disorder, recurrent, mild (ICD-10 - F33.0) 11/28/2023 Sleep apnea, unspecified (ICD-10 - G47.30) 1. Mild recurrent major depression- Lexapro 20 mg daily discuss and educated on Cymbalta help with depression and anxiety and also help with chronic pain, Cymbalta 60 mg daily in am- will monitor for fatigue http_s://www.ni .nih.gov/heal th/topics/menta y-oocgdt-xskqaj tions http_s://www.na mi.org/About-Me ntal-Illness/Tr eatments/Mental -Health-Medicat ions [...] days. Qty: (30) capsule Refills: 0 Pharmacy: [facility] 256 escitalopram 20 mg tablet - Take 1 tablet(s) every day by oral route in the morning for 90 days. Qty: (90) tablet Refills: 0 Pharmacy: [facility] 256 2. Generalized anxiety disorder [...] will monitor for fatigue http_s://www.ni .nih.gov/heal th/topics/menta s-wkmboq-nsekry tions http_s://www.na mi.org/About-Me ntal-Illness/Tr eatments/Mental -Health-Medicat ions [...] will monitor for fatigue http_s://www.ni .nih.gov/heal th/topics/menta s-bpqtwv-xydsdv tions http_s://www.na mi.org/About-Me ntal-Illness/Tr eatments/Mental -Health-Medicat ions [...] days. Qty: (30) capsule Refills: 0 Pharmacy: [facility] 256 escitalopram 20 mg tablet - Take 1 tablet(s) every day by oral route in the morning for 90 days. Qty: (90) tablet Refills: 0 Pharmacy: [facility] 256 2. Generalized anxiety disorder -Lexapro 20 [...] and labs PCP from refer note 09/27/23 07/26/2024 Sleep apnea, unspecified (ICD-10 - G47.30) 1. major depression- Lexapro 20 mg daily discuss and educated on Cymbalta help with depression and anxiety and also help with chronic pain, Cymbalta 60 mg daily in am- Therapy scheduled JENNIFER refer to therapy http_s://www.ni .nih.gov/heal th/topics/menta d-bniwxd-myqond tions http_s://www.na mi.org/About-Me ntal-Illness/Tr eatments/Mental -Health-Medicat ions [...] psychosis. Cannabis/mariju carolee information: http_s://chapin.n ih.gov/publicat ions/drugfacts/ cannabis-lopez carolee http_s://www.[employer].Borqs/c aetydqv-rqx-ttn order-marijuana -adhd/ 4. Sleep apnea-CPAP- sleep provider and PCP PCP seen for CPAP PCP sheduled and labs Discussion Notes therapy scheduled JENNIFER- 05/15/2024 Sleep apnea, unspecified (ICD-10 - G47.30) 1. major depression- Lexapro 20 mg daily discuss and educated on Cymbalta help with depression and anxiety and also help with chronic pain, Cymbalta 60 mg daily in am- will monitor for fatigue refer to therapy http_s://www.ni mh.nih.gov/heal th/topics/menta n-nksflu-exutqv tions http_s://www.na mi.org/About-Me ntal-Illness/Tr eatments/Mental -Health-Medicat ions [...] will monitor for fatigue http_s://www.ni .nih.gov/heal th/topics/menta d-wqvfof-lhaatp tions http_s://www.[facility].org/About-Me ntal-Illness/Tr eatments/Mental -Health-Medicat ions educated on all [...] CPAP PCP sheduled and labs Discussion Notes 05/15/2024 Cannabis dependence, uncomplicated (ICD-10 - F12.20) 1. major depression- Lexapro 20 mg daily discuss and educated on Cymbalta help with depression and anxiety and also help with chronic pain, Cymbalta 60 mg daily in am- will monitor for fatigue refer to therapy http_s://www.[facility].nih.gov/heal th/topics/menta w-ohwimf-mswfzb tions http_s://www.[facility].org/About-Me ntal-Illness/Tr eatments/Mental -Health-Medicat ions educated on all [...] PCP sheduled and labs Discussion Notes 07/26/2024 Cannabis dependence, uncomplicated (ICD-10 - F12.20) 1. major depression- Lexapro 20 mg daily discuss and educated on Cymbalta help with depression and anxiety and also help with chronic pain, Cymbalta 60 mg daily in am- Therapy scheduled JENNIFER refer to therapy http_s://www.ni .nih.gov/heal th/topics/menta e-uhdjbv-lkvunj tions http_s://www.na mi.org/About-Me ntal-Illness/Tr eatments/Mental -Health-Medicat ions [...] carolee information: http_s://chapin.n ih.gov/publicat ions/drugfacts/ cannabis-mariju carolee http_s://www.[employer]/c yhbijlz-esl-grn order-marijuana -adhd/ 4. Sleep apnea-CPAP- sleep provider and PCP PCP seen for CPAP PCP sheduled and labs Discussion Notes therapy scheduled JENNIFER- 03/16/2024 On ocean transportation intermediary drug therapy (ICD-10 - Z79.899) 1. Mild recurrent major depression- Lexapro 20 mg daily discuss and educated on Cymbalta help with depression and anxiety and also help with chronic pain, will increase Cymbalta 60 mg daily in am- will monitor for fatigue http_s://www.ni mh.nih.gov/heal th/topics/menta y-lfcckk-tkrhud tions http_s://www.na mi.org/About-Me ntal-Illness/Tr eatments/Mental -Health-Medicat ions [...] sheduled and labs Discussion Notes 11/28/2023 Other m[facility] (current) drug therapy (ICD9-CM - V58.69) 1. Mild recurrent major depression- Lexapro 20 mg daily discuss and educated on Cymbalta help with depression and anxiety and also help with chronic pain, Cymbalta 60 mg daily in am- will monitor for fatigue http_s://www.ni mh.nih.gov/heal th/topics/menta j-emkqqf-leetmt tions http_s://www.na mi.org/About-Me ntal-Illness/Tr eatments/Mental -Health-Medicat ions [...] days. Qty: (30) capsule Refills: 0 Pharmacy: [facility] 256 escitalopram 20 mg tablet - Take 1 tablet(s) every day by oral route in the morning for 90 days. Qty: (90) tablet Refills: 0 Pharmacy: [facility] 256 2. Generalized anxiety disorder -Lexapro 20 [...] and labs PCP from refer note 09/27/23 07/26/2024 On ocean transportation intermediary drug therapy (ICD-10 - Z79.899) 1. major depression- Lexapro 20 mg daily discuss and educated on Cymbalta help with depression and anxiety and also help with chronic pain, Cymbalta 60 mg daily in am- Therapy scheduled JENNIFER refer to therapy http_s://www.ni .nih.gov/heal th/topics/menta p-vwwksy-sbqjtz tions http_s://www.na mi.org/About-Me ntal-Illness/Tr eatments/Mental -Health-Medicat ions [...] carolee information: http_s://chapin.n ih.gov/publicat ions/drugfacts/ cannabis-mariju carolee http_s://www.[employer]/c zbpqaqu-ibu-gph order-marijuana -adhd/ 4. Sleep apnea-CPAP- sleep provider and PCP PCP seen for CPAP PCP sheduled and labs Discussion Notes therapy scheduled JENNIFER- 05/15/2024 On ocean transportation intermediary drug therapy (ICD-10 - Z79.899) 1. major depression- Lexapro 20 mg daily discuss and educated on Cymbalta help with depression and anxiety and also help with chronic pain, Cymbalta 60 mg daily in am- will monitor for fatigue refer to therapy http_s://www.ni mh.nih.gov/heal th/topics/menta x-tiongz-dsmwjx tions http_s://www.na mi.org/About-Me ntal-Illness/Tr eatments/Mental -Health-Medicat ions [...] sheduled and labs Discussion Notes 11/28/2023 Other 1. Mild recurrent major depression-Lexapro 20 mg dailydiscuss and educated on Cymbalta help with depression and anxiety and also help with chronic pain, Cymbalta 60 mg daily in am- will monitor for fatigue https://www.nimh. h.gov/health/topics /jxpzxs-bdsdkw-kjvx cations https://www.estelle.or g/Fjapw-Qjnuun-Qhpv ess/Treatments/Ment uy-Cuaqht-Mzchgxsbk ns educated on all medications, benefits, side [...] days. Qty: (30) capsule Refills: 0 [facility] 256escitalopram 20 mg tablet - Take 1 tablet(s) every day by oral route in the morning for 90 days. Qty: (90) tablet Refills: 0 Pharmacy: [facility] 256 2. Generalized anxiety disorder-Lexapro [...] will monitor for fatigue http_s://www.ni mh.nih.gov/heal th/topics/menta t-mcbnui-zhbtgb tions http_s://www.na mi.org/About-Me ntal-Illness/Tr eatments/Mental -Health-Medicat ions [...] days. Qty: (30) capsule Refills: 0 Pharmacy: [facility] 256 escitalopram 20 mg tablet - Take 1 tablet(s) every day by oral route in the morning for 90 days. Qty: (90) tablet Refills: 0 Pharmacy: [facility] 256 2. Generalized anxiety disorder -Lexapro 20 [...] from refer note 09/27/23 Plan Of Treatment Next Appt Details Provider Name:Valerie Rodrigez , 10/22/2024 08:30:00 AM, [address], [facility] [address], [place], [address], Insurance Providers Payer Name Payer Address Payer Phone Subscriber Number Group Number Insured Name Patient Relationship to Insured Coverage Start Date Coverage End Date Medicare-I l Medicare [address] [place] [phone] [id number] KRISTAL GARCIA Self - patient is the insured [facility] [address] [place] [address] [id number] KRISTAL GARCIA Self - patient is the insured Medical [...] Surgical History Surgery Date(Month/Year) Removal of gallbladder (13132) Hysterectomy (58291) rt foot x3 bilateral shoulder
--- OUTSIDE RECORDS SUMMARY | 2024-09-25 03:43 | XMS_ITS | Encounter Summary ---
Author Organization [facility] Address 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
--- OUTSIDE RECORDS SUMMARY | 2024-09-25 03:43 | XMS_ITS | Encounter Summary ---
[facility] Organization [facility] Address 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
[2024-09-25] MEDS: ACETAMINOPHEN 500 MG TABLET 1000 MG PO (06:30)
[2024-09-25] MEDS: TRANEXAMIC ACID 1,000MG/ISO100 1,000 MG/100 ML BAG 200 MG IVPB (06:35)
[2024-09-25] MEDS: LACTATED RINGERS 1,000 ML 30 ML IV CONT ×2 (06:35→09:28)
--- NOTE | 2024-09-25 07:15 | WPDHPUPDATE1 ---
History and Physical Update Update Date/Time: 09/25/24 07:15 History and Physical has been reviewed, including an updated exam of the patient. There are NO changes in the patient's condition. Risks, benefits, and alternatives have been discussed and questions answered. Patient agrees to proceed with procedure.
[2024-09-25] MEDS: ceFAZolin 2 GM/D5W 50 ML 2 GM/50 ML BAG IVPB ×3 (07:24→23:09)
[2024-09-25] MEDS: SCOPOLAMINE 1 MG PATCH 1 PATCH TRANSDERM (07:46)
[2024-09-25] MEDS: SODIUM CHLORIDE 0.9% IV 37.7 ML, MORPHINE SULFATE INJ (*CRX) 2 MG, ROPivacaine HCL 1% 2... INFILTRATE (08:30)
--- NOTE | 2024-09-25 08:55 | W.PM.PROC2 ---
Procedure Note - Detailed Date of Procedure 09/25/24 Pre-op Diagnosis Left hip degenerative arthritis. Post-op Diagnosis Same Procedure Performed Left Total Hip Arthroplasty Surgeon Miki Johnson MD [employer] Service Mechanic Charlette Quinones PA-C Anesthesia General Findings Marked varus neck angle. Managed with 127 degree prosthesis and low neck cut. Bone quality very good. Implant sizes matched preoperative templating. Description of Procedure The patient was given preoperative antibiotics. A general anesthetic was administered. The patient was carefully placed in the lateral decubitus position on the PEG board. The shoulders and hips were carefully positioned for component and leg length positioning reference. The hip was prepped and draped in the usual sterile fashion. A longitudinal incision was created over the posterior aspect of the greater trochanter. Careful dissection was brought down through the deep fascia with electrocautery. A minimally invasive optimized posterior approach to the hip was performed. The short external rotators and capsule were taken down in an L-shaped capsulotomy. The tissue was tagged for later repair using number 2 high strength suture. The femoral neck was measured and taken in situ. The femoral head was removed. The acetabulum was carefully exposed. The inferior capsule was released. The labrum was resected. The acetabulum was sequentially reamed to the intended cup size. The cup was impacted into position with excellent press-fit. Typical anatomic landmarks, including the bony contact points as well as the inferior transverse acetabular ligament were used to confirm cup positioning with preoperative templating. Attention was turned to the femur, which was carefully exposed. The hip was reamed and then broached sequentially. Excellent press-fit was obtained with the broach. The hip was trialed. Measurements were utilized, including the lesser trochanter as well as the center of the femoral head and the tip of the trochanter, and excellent assessment of the offset and leg lengths were confirmed. The real component was impacted into position. Trialing confirmed appropriate leg length and offset with soft tissue balancing as well apparent feel of the leg, both at the knee and the heel. Soft tissues were assessed using the the iliotibial band. Reduction of the posterior capsule and external rotators were also used as a secondary assessment. The hip was copiously irrigated with pulsatile lavage periodically throughout the procedure. The real components were then assembled and reduced. The hip was stable throughout typical maneuvers, including extension, external rotation to 70 degrees, the position of sleep as well as flexion to 90 degrees with internal rotation past 35 degrees. The shake test confirmed stability without impingement. Osteophytes were removed as necessary. The short external rotators and capsule were repaired back to the posterior trochanter through drill holes. The deep fascia was repaired with running number 2 barbed suture, followed by 2-0 Stratafix suture and 3-0 Stratafix suture in the dermis. Steri-Strips were placed on the skin, followed by a sterile occlusive dressing. There were no complications. Meticulous hemostasis was maintained with the AquaMantys device. The patient was brought to the recovery room in stable condition. There were no complications. Physician undertaker assistant, Charlette Quinones PA-C, required for surgery; including patient positioning, draping, tissue retraction, maintaining instrument position, hip dislocation/ relocation, wound closure, and dressing placement. Implants The Stryer Accolate 2 hip stem, high offset size 4 , was utilized with excellent press-fit. The 48 mm Trident II acetabular component was impacted with excellent press-fit stability. Standard polyethylene liner the -5, 36 mm Biolox ceramic femoral head was utilized. Estimated Blood Loss 300 Drains No Packing No Pathology None sent Complications No immediate complications Condition Stable Disposition PACU [facility] Billing Surgery - Charge Forward: Surgery Billing
[2024-09-25] MEDS: fentaNYL CITRATE INJ (*CRX) 100 MCG/2 ML VIAL 25 MCG IV PUSH ×4 (10:05→10:21)
--- NOTE | 2024-09-25 11:11 | ADMGEN ---
This patient, Tere Carr, was admitted to [facility] Surg Room 321-02. Patient/family oriented to hospital policies and general routines including ID bracelet, bed and alarms, visiting hours, pain management, procedures, bathroom and other care routines, personal items, smoking policy, room service/diet, and visiting hours. Information on how to activate the Rapid Response Team has been discussed. Patient/Family are encouraged to report perceived risks to care and to ask questions if they do not understand what they are told or what they should do.
[2024-09-25] MEDS: ONDANSETRON INJ 4 MG/2 ML VIAL IV PUSH ×2 (11:18→15:34)
[2024-09-25] MEDS: SODIUM CHLORIDE 0.9% IV 1,000 ML 125 ML IV CONT (11:25)
[2024-09-25] MEDS: oxyCODONE/ACETAMINOPHEN (*CRX) 10-325 MG TABLET 1 TAB PO (14:29)
[2024-09-25] MEDS: ACETAMINOPHEN 325 MG TABLET 650 MG PO ×2 (19:15→23:09)
[2024-09-25] MEDS: ASPIRIN 81 MG ENTERIC TABLET PO (19:15)
[2024-09-25] MEDS: MELOXICAM 7.5 MG TABLET PO (19:15)
[2024-09-25] MEDS: oxyCODONE/ACETAMINOPHEN (*CRX) 5-325 MG TABLET 1 TABLET PO (20:20)
[2024-09-25] MEDS: traMADol HCL (*CRX) 50 MG TABLET PO (20:21)
[2024-09-25] MEDS: LOSARTAN POTASSIUM 100 MG TABLET PO (20:22)
[2024-09-25] MEDS: ESCITALOPRAM OXALATE 10 MG TABLET 20 MG PO (20:22)
[2024-09-25] MEDS: FAMOTIDINE 20 MG TABLET PO (20:22)
[2024-09-25] MEDS: hydroCHLOROthiazide 25 MG TABLET PO (20:22)
[2024-09-25] MEDS: LATANOPROST 0.005% OP SOLN 2.5 ML BTL 1 DROP EACH EYE (20:22)
--- NOTE | 2024-09-25 22:25 | PCRCNOTE ---
Patient seen for planning placement on CPAP this pm; refused placement; Hospital [facility] CPAP machine is in room
[2024-09-26 00:22] VITALS: BP 98/51; PULSE 77; RESP 20; TEMP 37.4; O2SAT 94
[2024-09-26] MEDS: HYDROmorphone HCL INJ (*CRX) 1 MG/ML SYR IV PUSH (01:14)
[2024-09-26 04:38] VITALS: BP 100/60; PULSE 84; RESP 20; TEMP 37.1; O2SAT 95
[2024-09-26 06:34] LABS: Basophils Percent Auto 0.1 % (0.2-1.2); Hematocrit 38.8 % (37.0-47.0); Hemoglobin 12.8 g/dL (12.0-15.0); Immature Granulocyte Percent A 0.6 % (0-0.5); Immature Platelet Fraction Pct 1.7 % (0.9-11.2); Lymphocytes Absolute Auto 1.64 K/mm3 (0.9-3.2); Lymphocytes Percent Auto 10.5 % (18.3-44.2); Mean Corpuscular Hemoglobin 29.6 pg (26-34); Mean Corpuscular Volume 89.6 fl (80-100); Mean Platelet Volume 9.2 fl (7.4-10.4); Monocytes Absolute Auto 1.2 K/mm3 (0.1-0.6); Monocytes Percent Auto 7.4 % (2.6-8.5); Neutrophils Absolute Auto 12.7 K/mm3 (1.3-6.7); Neutrophils Percent Auto 81.4 % (45.5-73.1); Platelet Count Result 300 k/mm3 (150-375); Red Blood Count 4.33 M/mm3 (4.2-5.4); Red Cell Distribution Width 12.4 % (11.5-14.5); White Blood Count 15.7 K/mm3 (4.5-10.0)
[2024-09-26] MEDS: oxyCODONE/ACETAMINOPHEN (*CRX) 5-325 MG TABLET 1 TABLET PO (06:34)
[2024-09-26] MEDS: ceFAZolin 2 GM/D5W 50 ML 2 GM/50 ML BAG IVPB (06:34)
[2024-09-26 06:43] LABS: Anion Gap 6 mmol/L (4-12); Blood Urea Nitrogen 10 mg/dL (7-17); Calcium 8.7 mg/dL (8.4-10.2); Carbon Dioxide 28 mmol/L (22-30); Chloride 103 mmol/L (98-107); Estimated CRCL calculation 88 ml/min; Estimated Glomerular Filt Rate > 60; Glucose 109 mg/dL (65-110); Potassium 3.8 mmol/L (3.4-5.0); Sodium 137 mmol/L (137-145)
[2024-09-26 08:00] VITALS: O2SAT 95
[2024-09-26 08:38] VITALS: BP 111/69; PULSE 92; RESP 20; TEMP 36.5; O2SAT 93
[2024-09-26] MEDS: FAMOTIDINE 20 MG TABLET PO (09:15)
[2024-09-26] MEDS: ASPIRIN 81 MG ENTERIC TABLET PO (09:15)
[2024-09-26] MEDS: SENNA/DOCUSATE SODIUM TABLET 2 TAB PO (09:15)
[2024-09-26] MEDS: DULoxetine HCL 60 MG CAPSULE.DR PO (09:16)
[2024-09-26] MEDS: MELOXICAM 7.5 MG TABLET PO (09:17)
[2024-09-26] MEDS: polyethylene glycoL 3350 17 GM POWD.PACK PO (09:19)
== END 2024-09-26 10:17 | disposition home or self-care (01) ==
LOC: ANHSURGERY 07:46 → ANH3MEDSUR 11:10
PROVIDERS: Physician Assistant Surgical; PCP Nurse Practitioner Family; Visit Provider Orthopaedic Surgery
PROC: (CPT 27130; principal; 2024-09-25 07:30)
DX: M16.12 Unilateral primary osteoarthritis, left hip (principal); M25.752 Osteophyte, left hip; I10 Essential (primary) hypertension; K58.9 Irritable bowel syndrome, unspecified; J45.909 Unspecified asthma, uncomplicated; G47.33 Obstructive sleep apnea (adult) (pediatric); K21.9 Gastro-esophageal reflux disease without esophagitis; E78.00 Pure hypercholesterolemia, unspecified; M75.32 Calcific tendinitis of left shoulder; M17.0 Bilateral primary osteoarthritis of knee; F12.90 Cannabis use, unspecified, uncomplicated; E66.9 Obesity, unspecified; Z68.33 Body mass index [BMI] 33.0-33.9, adult; Z98.890 Other specified postprocedural states; Z87.891 Personal history of nicotine dependence; Z85.820 Personal history of malignant melanoma of skin; Z80.1 Family history of malignant neoplasm of trachea, bronchus and lung; Z80.8 Family history of malignant neoplasm of other organs or systems; Z82.49 Family history of ischemic heart disease and other diseases of the circulatory system
CPT/HCPCS: 27130; 36415; 73502; 80048; 85025; 85055; 86850; 86900; 86901; 97110; 97116; 97161; 97165; 97530; 97535; A9270; C1713; C1776; J0171; J0690; J1100; J1171; J1885; J2250; J2270; J2405; J2704; J2795; J3010; J7030; J7120

== ENCOUNTER 2025-03-04 14:16 | Outpatient (CLI) | payer MEDICARE, OTHER, SELFPAY ==
--- NOTE | ~2025-03-04 | US_ITS ---
US breast LT limited 03/04/2025 14:54 Indication: Follow-up left breast masses Procedure: High-resolution Limited ultrasound of the left breast Comparison: Comparison to multiple prior studies sequentially, with oldest reviewed study dated 03/06/2024. Findings: At 12:00, 3 cm from the nipple there is a stable complicated cyst measuring 4 mm without significant change. At 1:00, 6 cm from the nipple there is a stable 4 mm simple cyst. At 7:00, 2 cm from the nipple there is a stable 5 mm cyst. Impression: 1: Stable benign left breast masses. Routine yearly screening mammogram and regular clinical breast examination are recommended. BI-RADS CATEGORY 2 - BENIGN FINDINGS Reviewed, dictated and finalized at location B. Impression: 1: Stable benign left breast masses. Routine yearly screening mammogram and regular clinical breast examination are recommended. BI-RADS CATEGORY 2 - BENIGN FINDINGS
--- OUTSIDE RECORDS SUMMARY | 2025-03-04 14:59 | XMS_ITS | Clinical Summary ---
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 Gender Identity Not on file Sexual Orientation Not on file Last Filed Vital Signs Vital Sign Reading Time Taken Comments Blood Pressure 139/82 05/01/2012 1:55 PM MOTORBOAT OPERATOR Pulse - - Temperature - - Respiratory Rate - - Oxygen Saturation - - Inhaled Oxygen Concentration - - Weight 83.5 kg (184 lb) 05/01/2012 1:55 PM MOTORBOAT OPERATOR Height 158.8 cm (5' 2.5) 05/01/2012 1:55 PM MOTORBOAT OPERATOR Body Mass Index 33.12 05/01/2012 1:55 PM MOTORBOAT OPERATOR Plan of Treatment Health Maintenance Due Date [...] exists OSTEOPOROSIS SCREENING 2023 INFLUENZA VACCINE (#1) 2025 RSV VACCINE (60+ or ) (1 - 1-dose 75+ series) 2033 Procedures Procedure Name Priority Date/Time Associated Diagnosis Comments MAMMO DIAGNOSTIC UNI LEFT W OR WO CAD Routine 05/01/2012 3:58 PM MOTORBOAT OPERATOR Abnormal mammogram from Last 3 Months or Most Recently Relevant to Health Maintenance Results * MAMMO DIGITAL DIAG UNI LEFT (05/01/2012 3:58 PM MOTORBOAT OPERATOR) Anatomical Region Laterality Modality Breast Left Mammography 05/01/2012 3:58 PM MOTORBOAT OPERATOR Impressions 05/02/2012 8:41 AM MOTORBOAT OPERATOR IMPRESSION: Technically successful ultrasound-guided core biopsy with tissue marker placement. Narrative 05/02/2012 8:41 AM MOTORBOAT OPERATOR LEFT BREAST ULTRASOUND. 05/01/12 HISTORY: Patient has [...] BCBS BLUE ACCESS/TRUE BLUE PPO Care Teams Bleach Supervisor Relationship Specialty Start Date End Date Zane Soriano MD PCP - General Internal Medicine 05/01/12
--- OUTSIDE RECORDS SUMMARY | 2025-03-04 14:59 | XMS_ITS | Clinical Summary ---
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
--- OUTSIDE RECORDS SUMMARY | 2025-03-04 14:59 | XMS_ITS | Clinical Summary ---
Author Organization [facility] Address [address] [place] [address] Care Team Providers Care Chief Dispatcher Service Name Role Phone Kimberly Stiles [facility] Primary Care Provider + Source Comments [facility],non-owned Affiliates and Associated Physician Practices is amultiple site organization consisting of ambulatory clinics and hospital sitesin [place], [place], [place] and [place]. This disclosure is being madepursuant to the Care Everywhere program and may not contain all information available regarding this patient. Last updated 18.[employer] Allergies Active Allergy Reactions Criticality Noted Date [...] chew. KEV-1 90 tablet 1 05/22/2024 Active Social History Tobacco Use Types Packs/Day Years Used Date Smoking Tobacco: Never Assessed Comments Unknown Sex and Gender Information Value Date Recorded Sex Assigned at Not on file Legal Sex Female 6:24 AM HOSPITALITY ASSOCIATE Gender Identity Not on file Sexual Orientation Not on file Last Filed Vital Signs Vital Sign Reading Time Taken Comments Blood Pressure 126/76 05/04/2024 9:21 AM HOSPITALITY ASSOCIATE Pulse 96 05/04/2024 9:21 AM HOSPITALITY ASSOCIATE Temperature - - Respiratory Rate - - Oxygen Saturation 96% 05/04/2024 9:21 AM HOSPITALITY ASSOCIATE Inhaled Oxygen Concentration - - Weight 83.3 kg (183 lb 11.2 oz) 024 11:00 AM HOSPITALITY ASSOCIATE Standing Height 158.8 cm (5' 2.5) 05/22/2024 11 :00 AM HOSPITALITY ASSOCIATE Body Mass Index 33.06 05/22/2024 11:00 AM HOSPITALITY ASSOCIATE Plan of Treatment Upcoming Encounters Date Type Department Care Team (Late st Contact Info) Description 03/05/2025 1:30 PM CDT Office Visit [facility] - Endocrinology [address] [place] [phone] Jose Ovalles MD [address] [place] [phone] Health Maintenance Due Date Last Done Comments [...] 1977 ZOSTER VACCINE (1 of 2) 2008 DEPRESSION SCREENING 06/06/2024 COVID-19 VACCINE (1 - season) 2025 INFLUENZA VACCINE (#1) 2025 , 03/03/2022, 02/12/2021, Additional history exists SCREENING FOR DIABETES 05/04/2027 4, 05/04/2024, 05/04/2024 Respiratory Syncytial Virus (RSV) Vaccine [...] OF CARE (AMB) Routine 05/04/2024 9:48 AM HOSPITALITY ASSOCIATE Type 2 diabetes mellitus without complication, without long-term current use of insulin from Last 3 Months or Most Recently Relevant to Health Maintenance Results * HEMOGLOBIN A1C - POINT OF CARE (AMB) (05/04/2024 9:48 AM HOSPITALITY ASSOCIATE) Hemoglobin A1c POCT 5.9 % Expiration Date 01/25 Lot # [id number] QC Verified Yes Yes Blood BLOOD SPECIMEN / Unknown 05/04/2024 9:48 AM HOSPITALITY ASSOCIATE Jose Ovalles MD LAB - POINT OF CARE ORDERABL ES Final Result from Last 3 Months or Most Recently Relevant to Health Maintenance Insurance MEDICARE [facility] [place] [phone] Care Teams Chief Dispatcher Service Relationship Specialty Start Date End Date Kimberly Stiles APRN-TRANSFER ENGINEER [address] [place] [address] [place] [phone] PCP - General Family Medicine 05/04/24
--- OUTSIDE RECORDS SUMMARY | 2025-03-04 15:00 | XMS_ITS | Patient Health Record ---
Author Organization [facility] [employer] [facility] Address [address] [place] [address] Care Team Providers Care Candy Spreader Name Role Phone Jacob [employer], Rhea Primary Care Provider Valerie Joe Unavailable [phone] Zahra Peterson Unavailable [phone] Allergies No Known Allergies Reason For Referral No Information Medications Medication SIG (Take, Route, Frequency, Duration) Notes Start Date End Date Status Ondansetron 4 MG Tablet Disintegrating Oral 10/24/2023 Active Escitalopram Oxalate 20 MG Tablet 1 tablet Oral Once a day; Duration: 90 days 02/26/2025 Active buPROPion HCl ER (XL) 150 MG Tablet Extended Release 24 Hour 1 tablet in the morning Orally Once a day; Duration: 90 days 02/26/2025 Active DULoxetine HCl 30 MG Capsule Delayed Release Particles 1 capsule Oral Once a day; Duration: 14 days 01/29/2025 Not-Takin g HYDROcodone-Acetaminophen 5-325 MG Tablet Oral 10/24/2023 Not-Taking Escitalopram Oxalate 10 MG Tablet Oral 10/24/2023 Not-Taking Losartan Potassium-HCTZ 100-12.5 MG Tablet Oral 10/24/2023 Active ALPRAZolam 0.5 MG Tablet Oral 10/24/2023 Active Latanoprost 0.005 % Solution Ophthalmic 10/24/2023 Active Immunizations Vaccine Route Administration Date Status Comme nts Pneumococcal polysaccharide PPV23 Unknown 07/13/2023 Ad ministered Influenza, unspecified formulation Unknown 07/07/2023 A dministered Pneumococcal conjugate PCV 13 Unknown 02/24/2022 Admini stered Social History Tobacco Use: Social History Observation Description Date Details (start date - stop date) Former Smoker NA - NA Sex Assigned At : Social History Observation Description Sex Assigned At Female Social History Miscellaneous: Social Info Question Answer Notes Advance Care Planning Are you your own decision-maker Yes Do you have Power of Manager Paper for Health or Medi anahi? Yes Do you have a power of patent prosecution attorney for health? Yes Do you have power of patent prosecution attorney for Medical ? Yes Safety issues: Are there any firearms in the house? No Sexual History: Social Info Question Answer Notes Sexual History Had sex in the past 12 months (vaginal, oral, or anal)? Yes with Men only Social History Social Info Question Answer Notes Household: Marital Status: Number of Adults in household: 4 Level of Education: Not Finished College Household: Social Info Question Answer Notes Household Marital status: Number of adults in household: 2 Number of children in household: 1 son in home age 24 2 daughters grown Number of siblings: 5 2 siblings a live Level of education: not finished college Any household tobacco use? No Any household pets? Yes dog Drug/Alcohol: Social Info Question Answer Notes Drugs Have you used drugs other than those for medical reasons in the past 12 months? Yes AUDIT-C (Standard) Did you have a drink containing alcohol in the past year? Yes How often did you have six or more drinks on one occasion in the past year? Never (0 point) How many drinks did you have on a typical day when you were drinking in the past year? 1 or 2 drinks (0 point) How often did you have a drink containing alcohol in the past year? Monthly or less (1 point) Points 2 Interpretation Negative Caffeine Intake: 3-4 cups per day Tobacco Use: Social Info Question Answer Notes Tobacco Control (Standard) Tobacco use: Former smoker Additional Findings: Tobacco non-user Current no nsmoker Additional Details Category Social Info Options Details Migrated Social History Migrated Social History Alcohol Intake: Occasional 10/24/2023,Tobacco Years: Former smoker 09/27/2023 Problems Problem Type SNOMED Code ICD Code Onset Dates Problem Status W/U Status Risk Notes Problem Cannabis dependence (94200286) Cannabis dependence, uncomplicated (F12.20) 10/24/19 24 Active confirmed Problem Mild recurrent major depression (64835937) Major depressive disorder, recurrent, mild (F33.0) 10/24/19 24 Active confirmed Problem Generalized anxiety disorder (25704192) Generalized anxiety disorder (F41.1) 10/24/19 24 Active confirmed Problem Sleep apnea (69390712) Sleep apnea, unspecified (G47.30) 10/24/19 24 Active confirmed Problem Screening for cardiovascular system disease (817431690) Encounter for screening for cardiovascular disorders (Z13.6) Active confirmed Problem Depression Screening (483524162) Encounter for screening for depression (Z13.31) Active confirmed Problem Long-term current use of drug therapy (364851829) On superintendent terminal drug therapy (Z79.899) Active confirmed Vital Signs Heart Rate 76 /min 02/26/2025 Respiratory Rate 16 /min 02/26/2025 Height-cm 157.48 cm 02/26/2025 Blood pressure diastolic 73 mm Hg 02/26/2025 Weight-kg 88.91 kg 02/26/2025 Height 62.00 in 02/26/2025 Blood pressure systolic 152 mm Hg 02/26/2025 Weight 196 lbs 02/26/2025 BMI 35.84 kg/m2 02/26/2025 Encounters Encounter Location Date Provider Diagnosis [facility] [employer] [facility] [address] [address] 03/16/2024 Valerie Rodrigez Major depressive disorder, recurrent, mild F33.0 ; Generalized anxiety disorder F41.1 ; Sleep apnea, unspecified G47.30 ; Cannabis dependence, uncomplicated F12.20 and On half-way drug therapy Z79.899 [facility] [employer] [facility] [address] [address] 05/15/2024 Valerie Rodrigez Major depressive disorder, recurrent, mild F33.0 ; Generalized anxiety disorder F41.1 ; Sleep apnea, unspecified G47.30 ; Cannabis dependence, uncomplicated F12.20 and On superintendent terminal drug therapy Z79.899 [facility] [employer] [facility] [address] [address] 07/26/2024 Valerie Rodrigez Major depressive disorder, recurrent, mild F33.0 ; Generalized anxiety disorder F41.1 ; Sleep apnea, unspecified G47.30 ; Cannabis dependence, uncomplicated F12.20 and On half-way drug therapy Z79.899 [facility] [employer] [facility] [address] [address] 08/02/2024 Zahra Peterson Generalized anxiety disorder F41.1 and Major depressive disorder, recurrent, mild F33.0 [facility] [address] [address] 10/22/2024 Valerie Rodrigez Encounter for screen ing for depression Z13.31 ; Major depressive disorder, recurrent, mild F33.0 ; Encounter for screening for cardiovascular disorders Z13.6 ; Generalized anxiety disorder F41.1 ; Sleep apnea, unspecified G47.30 ; Cannabis dependence, uncomplicated F12.20 and On superintendent terminal drug therapy Z79.899 [facility], [facility] [address] [address] 01/29/2025 Valerie Rodrigez Major depressive disorder, recurrent, mild F33.0 ; Encounter for screening for depression Z13.31 ; Encounter for screening for cardiovascular disorders Z13.6 ; Generalized anxiety disorder F41.1 ; Sleep apnea, unspecified G47.30 ; Cannabis dependence, uncomplicated F12.20 and On superintendent terminal drug therapy Z79.899 [facility] [address] [facility] [address] [address] 02/26/2025 Valerie Theradalberto Major depressive disorder, recurrent, mild F33.0 ; Generalized anxiety disorder F41.1 ; Sleep apnea, unspecified G47.30 and Cannabis dependence, uncomplicated F12.20 [facility] [address] [address] 01/01/2025 Valerie Theradalberto [facility], [facility] [address] [facility] [address] [address] 05/14/2024 aVlerie Theradalberto Major depressive disorder, recurrent, mild F33.0 [facility] [address] [address] 07/06/2024 Valerie Thery [facility], [facility] [address] [facility] [address] [address] 07/06/2024 Valerie Theradalberto Major depressive disorder, recurrent, mild F33.0 [facility], [facility] [address] [address] 09/24/2024 Valerie Rodrigez Major depressive disorder, recurrent, mild F33.0 Assessments Encounter Date Diagnosis (ICD Code) Assessment Notes Treatment Notes Treatment Clinical Notes Section Notes 03/16/2024 Major depressive disorder, recurrent, mild (ICD-10 - F33.0) 1. Mild recurrent major depression- Lexapro 20 mg daily discuss and educated on Cymbalta help with depression and anxiety and also help with chronic pain, will increase Cymbalta 60 mg daily in am- will monitor for fatigue http_s://www.[facility].nih.gov/health /topics/mental-h ealth-medication s http_s://www.nam i.org/About-Ment al-Illness/Treat [...] daily in am- will monitor for fatigue http_s://www.[facility].nih.gov/health /topics/mental-h ealth-medication s http_s://www.nam i.org/About-Ment al-Illness/Treat [...] PCP sheduled and labs Discussion Notes 05/15/2024 Major depressive disorder, recurrent, mild (ICD-10 - F33.0) 1. major depression- Lexapro 20 mg daily discuss and educated on Cymbalta help with depression and anxiety and also help with chronic pain, Cymbalta 60 mg daily in am- will monitor for fatigue refer to therapy http_s://www.nim h.nih.gov/health /topics/mental-h ealth-medication [...] Cannabis/marijua na information: http_s://chapin.ni h.gov/publicatio ns/drugfacts/can nabis-marijuana http_s://www.[employer]/can jtnaa-iek-yhfngs pp-snkdlvxwa-ojw d/ 4. Sleep apnea-CPAP- sleep provider and PCP PCP seen for CPAP PCP sheduled and labs Discussion Notes therapy scheduled JENNIFER- 08/02/2024 Generalized anxiety disorder (ICD-10 - F41.1) 09/24/2024 Major depressive disorder, recurrent, mild (ICD-10 - F33.0) 10/22/2024 Major depressive disorder, recurrent, mild (ICD-10 - F33.0) 1. major depression- improved Lexapro 20 mg daily discuss and educated [...] Cannabis/marijua na information: http_s://chapin.ni h.gov/publicatio ns/drugfacts/can nabis-marijuana http_s://www.[employer]/can rmrvz-lzf-cldsyy hh-bqelptqhi-oha d/ 4. Sleep apnea-CPAP- sleep provider and PCP PCP seen for CPAP PCP labs Discussion Notes therapy scheduled JENNIFER- 10/22/2024 Encounter for screening for depression (ICD-10 - Z13.31) 1. major depression- improved Lexapro 20 mg daily discuss and educated [...] Cannabis/marijua na information: http_s://chapin.ni h.gov/publicatio ns/drugfacts/can nabis-marijuana http_s://www.[employer]/can hqqic-efc-qaqpnx qb-yxgnskpak-hte d/ 4. Sleep apnea-CPAP- sleep provider and PCP PCP seen for CPAP PCP labs Discussion Notes therapy scheduled JENNIFER- 01/29/2025 Major depressive disorder, recurrent, mild (ICD-10 - F33.0) 1. major depression- improved Lexapro 20 mg daily patient reported sweating on Cymbalta decrease Cymbalta 30 mg daily in am- for 2 weeks then stop Add Wellbutrin XL 150 mg in am Therapy scheduled JENNIFER refer to therapy http_s://www.nim [...] Generalized anxiety disorder -Lexapro 20 mg daily Medication Management and Follow-Up - Plan: - [...] Cannabis/marijua na information: http_s://chap[place].ni h.gov/publicatio ns/drugfacts/can nabis-marijuana http_s://www.[employer]/can hvcpy-eti-tpuldw tt-yzngmwmfs-tnd d/ 4. Sleep apnea-CPAP- sleep provider and PCP PCP seen for CPAP PCP labs Discussion Notes therapy scheduled JENNIFER- 01/29/2025 Encounter for screening for depression (ICD-10 - Z13.31) 1. major depression- improved Lexapro 20 mg daily patient reported sweating on Cymbalta decrease Cymbalta 30 mg daily in am- for 2 weeks then stop Add Wellbutrin XL 150 mg in am Therapy scheduled JENNIFER refer to therapy http_s://www.nim [...] Generalized anxiety disorder -Lexapro 20 mg daily Medication Management and Follow-Up - Plan: - [...] Cannabis/marijua na information: http_s://chapin.ni h.gov/publicatio ns/drugfacts/can nabis-marijuana http_s://www.[employer]/can fppjo-frj-khbwdh nb-codwsutwc-gjr d/ 4. Sleep apnea-CPAP- sleep provider and PCP PCP seen for CPAP PCP labs Discussion Notes therapy scheduled JENNIFER- 02/26/2025 Major depressive disorder, recurrent, mild (ICD-10 - F33.0) 1. major depression- improved Lexapro 20 mg daily patient reported hx sweating on Cymbalta Wellbutrin XL 150 mg in am Therapy scheduled JENNIFER refer to therapy http_s://www.nim [...] Generalized anxiety disorder -Lexapro 20 mg daily Medication Management and Follow-Up - Plan: - [...] Cannabis/marijua na information: http_s://chapin.ni h.gov/publicatio ns/drugfacts/can nabis-marijuana http_s://www.[employer]/can cycqe-prm-lrrfkp tk-yrbducbze-puc d/ 4. Sleep apnea-CPAP- sleep provider and PCP PCP seen for CPAP PCP labs Discussion Notes therapy scheduled JENNIFER- 02/26/2025 Generalized anxiety disorder (ICD-10 - F41.1) 1. major depression- improved Lexapro 20 mg daily patient reported hx sweating on Cymbalta Wellbutrin XL 150 mg in am Therapy scheduled JENNIFER refer to therapy http_s://www.nim [...] Generalized anxiety disorder -Lexapro 20 mg daily Medication Management and Follow-Up - Plan: - [...] Cannabis/marijua na information: http_s://chapin.ni h.gov/publicatio ns/drugfacts/can nabis-marijuana http_s://www.[employer]/can vvazp-ehk-cbxnmp nj-gwegzbnsr-ucm d/ 4. Sleep apnea-CPAP- sleep provider and PCP PCP seen for CPAP PCP labs Discussion Notes therapy scheduled JENNIFER- 02/26/2025 Sleep apnea, unspecified (ICD-10 - G47.30) 1. major depression- improved Lexapro 20 mg daily patient reported hx sweating on Cymbalta Wellbutrin XL 150 mg in am Therapy scheduled JENNIFER refer to therapy http_s://www.nim [...] Generalized anxiety disorder -Lexapro 20 mg daily Medication Management and Follow-Up - Plan: - [...] Cannabis/marijua na information: http_s://chapin.ni h.gov/publicatio ns/drugfacts/can nabis-marijuana http_s://www.[employer]/can otbia-bgr-jagqwm bp-ilicybejy-iol d/ 4. Sleep apnea-CPAP- sleep provider and PCP PCP seen for CPAP PCP labs Discussion Notes therapy scheduled JENNIFER- 01/29/2025 Encounter for screening for cardiovascular disorders (ICD-10 - Z13.6) 1. major depression- improved Lexapro 20 mg daily patient reported sweating on Cymbalta decrease Cymbalta 30 mg daily in am- for 2 weeks then stop Add Wellbutrin XL 150 mg in am Therapy scheduled JENNIFER refer to therapy http_s://www.nim [...] Generalized anxiety disorder -Lexapro 20 mg daily Medication Management and Follow-Up - Plan: - [...] Cannabis/marijua na information: http_s://chapin.ni h.gov/publicatio ns/drugfacts/can nabis-marijuana http_s://www.[employer]/can ookuh-dkw-bdiafn kf-anjoeryqu-bpb d/ 4. Sleep apnea-CPAP- sleep provider and PCP PCP seen for CPAP PCP labs Discussion Notes therapy scheduled JENNIFER- 08/02/2024 Major depressive disorder, recurrent, mild (ICD-10 - F33.0) 10/22/2024 Encounter for screening for cardiovascular disorders (ICD-10 - Z13.6) 1. major depression- improved Lexapro 20 mg daily discuss and educated [...] Cannabis/marijua na information: http_s://chapin.ni h.gov/publicatio ns/drugfacts/can nabis-marijuana http_s://www.[employer]/can svkzp-ldx-sthxzt io-nqenezocd-fxc d/ 4. Sleep apnea-CPAP- sleep provider and PCP PCP seen for CPAP PCP labs Discussion Notes therapy scheduled JENNIFER- 07/26/2024 [...] Cannabis/marijua na information: http_s://chapin.ni h.gov/publicatio ns/drugfacts/can nabis-marijuana http_s://www.[employer]/can qflaq-idu-pxafdy tt-oylcwrwxh-ccb d/ 4. Sleep apnea-CPAP- sleep provider and [...] will monitor for fatigue refer to therapy http_s://www.nim h.nih.gov/health /topics/mental-h ealth-medication [...] PCP sheduled and labs Discussion Notes 03/16/2024 Sleep apnea, unspecified (ICD-10 - G47.30) 1. Mild recurrent major depression- Lexapro 20 mg daily discuss and educated on Cymbalta help with depression and anxiety and also help with chronic pain, will increase Cymbalta 60 mg daily in am- will monitor for fatigue http_s://www.nim h.nih.gov/health /topics/mental-h ealth-medication s http_s://www.nam i.org/About-Ment [...] daily in am- will monitor for fatigue http_s://www.nim h.nih.gov/health /topics/mental-h ealth-medication s http_s://www.nam i.org/About-Ment [...] PCP sheduled and labs Discussion Notes 05/15/2024 Sleep apnea, unspecified (ICD-10 - G47.30) 1. major depression- Lexapro 20 mg daily discuss and educated on Cymbalta help with depression and anxiety and also help with chronic pain, Cymbalta 60 mg daily in am- will monitor for fatigue refer to therapy http_s://www.[facility].nih.gov/health /topics/mental-h ealth-medication s http_s://www.nam i.org/About-Ment al-Illness/Treat [...] am- Therapy scheduled JENNIFER refer to therapy http_s://www.[facility].nih.gov/health /topics/mental-h ealth-medication s http_s://www.nam i.org/About-Ment al-Illness/Treat ments/Mental-Hea [facility]-Medications educated on all medications, benefits, side effects [...] Cannabis/marijua na information: http_s://chapin.ni h.gov/publicatio ns/drugfacts/can nabis-marijuana http_s://www.[employer]/can wiibf-yka-hulgzy xe-hkfugdccl-hcw d/ 4. Sleep apnea-CPAP- sleep provider and PCP PCP seen for CPAP PCP sheduled and labs Discussion Notes therapy scheduled JENNIFER- 10/22/2024 Generalized anxiety disorder (ICD-10 - F41.1) 1. major depression- improved Lexapro 20 mg daily discuss and educated on Cymbalta help with depression and anxiety and also help with chronic pain, Cymbalta 60 mg daily in am- Therapy scheduled JENNIFER refer to therapy http_s://[facility].nih.gov/health /topics/mental-h ealth-medication s http_s://www.nam i.org/About-Ment al-Illness/Treat ments/Mental-Hea [facility]-Medications educated on all medications, benefits, side effects [...] Cannabis/marijua na information: http_s://chapin.ni h.gov/publicatio ns/drugfacts/can nabis-marijuana http_s://www.[employer]/can mppfh-cff-zrotus rf-vzkjtqoan-vtw d/ 4. Sleep apnea-CPAP- sleep provider and PCP PCP seen for CPAP PCP labs Discussion Notes therapy scheduled JENNIFER- 01/29/2025 Generalized anxiety disorder (ICD-10 - F41.1) 1. major depression- improved Lexapro 20 mg daily patient reported sweating on Cymbalta decrease Cymbalta 30 mg daily in am- for 2 weeks then stop Add Wellbutrin XL 150 mg in am Therapy scheduled JENNIFER refer to therapy http_s://www.nim h.nih.gov/health /topics/mental-h ealt-medication s http_s://www.nam i.org/About-Ment al-Illness/Treat ments/Mental-Hea lth-Medications educated [...] Generalized anxiety disorder -Lexapro 20 mg daily Medication Management and Follow-Up - Plan: - [...] Cannabis/marijua na information: http_s://chapin.ni h.gov/publicatio ns/drugfacts/can nabis-marijuana http_s://www.[employer]/can ofewj-bzv-bmiyhk wc-bgnfxqdqb-jwb d/ 4. Sleep apnea-CPAP- sleep provider and PCP PCP seen for CPAP PCP labs Discussion Notes therapy scheduled JENNIFER- 02/26/2025 Cannabis dependence, uncomplicated (ICD-10 - F12.20) 1. major depression- improved Lexapro 20 mg daily patient reported hx sweating on Cymbalta Wellbutrin XL 150 mg in am Therapy scheduled JENNIFER refer to therapy http_s://[facility].nih.gov/health /topics/mental-h ealth-medication s http_s://www.nam i.org/About-Ment al-Illness/Treat ments/Mental-Hea lt-Medications educated on all medications, benefits, side effects [...] Generalized anxiety disorder -Lexapro 20 mg daily Medication Management and Follow-Up - Plan: - [...] Cannabis/marijua na information: http_s://chapin.ni h.gov/publicatio ns/drugfacts/can nabis-marijuana http_s://www.[employer]/can tqona-jfd-sevjcm wf-kywlzpekc-thc d/ 4. Sleep apnea-CPAP- sleep provider and PCP PCP seen for CPAP PCP labs Discussion Notes therapy scheduled JENNIFER- 01/29/2025 Sleep apnea, unspecified (ICD-10 - G47.30) 1. major depression- improved Lexapro 20 mg daily patient reported sweating on Cymbalta decrease Cymbalta 30 mg daily in am- for 2 weeks then stop Add Wellbutrin XL 150 mg in am Therapy scheduled JENNIFER refer to therapy http_s://www.nim h.nih.gov/health /topics/mental-h ealt-medication s http_s://www.nam i.org/About-Ment al-Illness/Treat ments/Mental-Hea lt-Medications educated on all medications, benefits, side effects [...] Generalized anxiety disorder -Lexapro 20 mg daily Medication Management and Follow-Up - Plan: - [...] Cannabis/marijua na information: http_s://chapin.ni h.gov/publicatio ns/drugfacts/can nabis-marijuana http_s://www.[employer]/can sgkpj-hlp-orcvhp av-kkzxqgjhm-msp d/ 4. Sleep apnea-CPAP- sleep provider and PCP PCP seen for CPAP PCP labs Discussion Notes therapy scheduled JENNIFER- 10/22/2024 Sleep apnea, unspecified (ICD-10 - G47.30) 1. major depression- improved Lexapro 20 mg daily discuss and educated [...] Cannabis/marijua na information: http_s://chapin.ni h.gov/publicatio ns/drugfacts/can nabis-marijuana http_s://www.[employer]/can jivhc-mdg-efakpr pj-phbnajwpo-aas d/ 4. Sleep apnea-CPAP- sleep provider and PCP PCP seen for CPAP PCP labs Discussion Notes therapy scheduled JENNIFER- 07/26/2024 [...] Cannabis/marijua na information: http_s://chapin.ni h.gov/publicatio ns/drugfacts/can nabis-marijuana http_s://www.[employer]/can redtc-hcw-auogoy lu-acbangbbj-ckr d/ 4. Sleep apnea-CPAP- sleep provider and [...] will monitor for fatigue refer to therapy http_s://www.[facility].nih.gov/health /topics/mental-h ealth-medication s http_s://www.nam i.org/About-Ment al-Illness/Treat [...] sheduled and labs Discussion Notes 03/16/2024 On half-way drug therapy (ICD-10 - Z79.899) 1. Mild recurrent major depression- Lexapro 20 mg daily discuss and educated on Cymbalta help with depression and anxiety and also help with chronic pain, will increase Cymbalta 60 mg daily in am- will monitor for fatigue http_s://www.[facility].nih.gov/health /topics/mental-h ealth-medication s http_s://www.nam i.org/About-Ment al-Illness/Treat [...] PCP sheduled and labs Discussion Notes 05/15/2024 On half-way drug therapy (ICD-10 - Z79.899) 1. major depression- Lexapro 20 mg daily discuss and educated on Cymbalta help with depression and anxiety and also help with chronic pain, Cymbalta 60 mg daily in am- will monitor for fatigue refer to therapy http_s://www.nim h.nih.gov/health /topics/mental-h ealth-medication [...] CPAP PCP sheduled and labs Discussion Notes 10/22/2024 Cannabis dependence, uncomplicated (ICD-10 - F12.20) 1. major depression- improved Lexapro 20 mg daily discuss and educated on Cymbalta help with depression and anxiety and also help with chronic pain, Cymbalta 60 mg daily in am- Therapy scheduled JENNIFER refer to therapy http_s://[facility].nih.gov/health /topics/mental-h ealth-medication s http_s://www.nam i.org/About-Ment al-Illness/Treat [...] Cannabis/marijua na information: http_s://chapin.ni h.gov/publicatio ns/drugfacts/can nabis-marijuana http_s://www.[employer]/can stshk-gnc-smutys cq-qbwwkkbwj-zjo d/ 4. Sleep apnea-CPAP- sleep provider and PCP PCP seen for CPAP PCP labs Discussion Notes therapy scheduled JENNIFER- 07/26/2024 On superintendent terminal drug therapy (ICD-10 - Z79.899) 1. major [...] Cannabis/marijua na information: http_s://chapin.ni h.gov/publicatio ns/drugfacts/can nabis-marijuana http_s://www.[employer]/can ldmzk-jhd-kzueus sy-qvgxrgwdv-xpe d/ 4. Sleep apnea-CPAP- sleep provider and PCP PCP seen for CPAP PCP sheduled and labs Discussion Notes therapy scheduled JENNIFER- 01/29/2025 Cannabis dependence, uncomplicated (ICD-10 - F12.20) 1. major depression- improved Lexapro 20 mg daily patient reported sweating on Cymbalta decrease Cymbalta 30 mg daily in am- for 2 weeks then stop Add Wellbutrin XL 150 mg in am Therapy scheduled JENNIFER refer to therapy http_s://[facility].nih.gov/health /topics/mental-h ealth-medication s http_s://www.nam i.org/About-Ment al-Illness/Treat [...] Generalized anxiety disorder -Lexapro 20 mg daily Medication Management and Follow-Up - Plan: - [...] Cannabis/marijua na information: http_s://chapin.ni h.gov/publicatio ns/drugfacts/can nabis-marijuana http_s://www.[employer]/can lbzqp-pcc-tqbpem cm-hewznxtcl-vpx d/ 4. Sleep apnea-CPAP- sleep provider and PCP PCP seen for CPAP PCP labs Discussion Notes therapy scheduled JENNIFER- 10/22/2024 On half-way drug therapy (ICD-10 - Z79.899) 1. major depression- improved Lexapro 20 mg daily discuss and educated on Cymbalta help with depression and anxiety and also help with chronic pain, Cymbalta 60 mg daily in am- Therapy scheduled JENNIFER refer to therapy http_s://www.[facility].nih.gov/health /topics/mental-h ealth-medication s http_s://www.nam i.org/About-Ment al-Illness/Treat [...] Cannabis/marijua na information: http_s://chapin.ni h.gov/publicatio ns/drugfacts/can nabis-marijuana http_s://www.[employer]/can uagof-jvc-jydpwf wm-zcloaomws-lml d/ 4. Sleep apnea-CPAP- sleep provider and PCP PCP seen for CPAP PCP labs Discussion Notes therapy scheduled JENNIFER- 01/29/2025 On superintendent terminal drug therapy (ICD-10 - Z79.899) 1. major depression- improved Lexapro 20 mg daily patient reported sweating on Cymbalta decrease Cymbalta 30 mg daily in am- for 2 weeks then stop Add Wellbutrin XL 150 mg in am Therapy scheduled JENNIFER refer to therapy http_s://www.nim [...] Generalized anxiety disorder -Lexapro 20 mg daily Medication Management and Follow-Up - Plan: - [...] Cannabis/marijua na information: http_s://chapin.ni h.gov/publicatio ns/drugfacts/can nabis-marijuana http_s://www.[employer]/can bxncd-iug-zrhydx je-jladfjvzu-vuu d/ 4. Sleep apnea-CPAP- sleep provider and PCP PCP seen for CPAP PCP labs Discussion Notes therapy scheduled JENNIFER- Plan Of Treatment Next Appt Details Provider Name:Valerie Rodrigez , 05/21/2025 08:45:00 AM, [address] [facility] [address], [facility] [address], [place], [address], Insurance Providers Payer Name Payer Address Payer Phone Subscriber Number Group Number Insured Name Patient Relationship to Insured Coverage Start Date Coverage End Date Medicare-I l Medicare [address] [place] [phone] [id number] KRISTAL GARCIAE Self - patient is the insured [place] [address] [employer] [facility] [place] [phone] [id number] KRISTAL GARCIA Self - patient is the insured Medical (General) History Medical History History ICD Code Problems: Cannabis dependence Chronic pain Generalized anxiety disorder Major depressive disorder Mild recurrent major depression Sleep apnea , Past Psychiatric History: Anxiety Disord er undefined abdominal aortic aneurysm: No atrial fibrillation: No chronic fatigue syndrome: No essential tremor: No hypertension: No Parkinson's disease: No restless leg syndrome: No stroke: No subdural hematoma: No type 1 diabetes mellitus: No type 2 diabetes mellitus: No vitamin B12 deficiency: No vitamin D deficiency: No Surgical History Surgery Date(Month/Year) Removal of gallbladder (99914) Hysterectomy (07341) rt foot x3 bilateral shoulder Left Hip Replacement 09/26/2024
--- OUTSIDE RECORDS SUMMARY | 2025-03-04 15:00 | XMS_ITS | Clinical Summary ---
Author Organization [facility] Address [address] [place] [address] Care Team Providers Care Farm Planner Name Role Phone Rhea James MD Primary Care Provider [phone] Social History Tobacco Use Types Packs/Day Years [...] Scan (General) 2023 COVID-19 Vaccine (3 - 2024-2 6 season) 2025 09/14/2020, 08/19/2020 RSV Immunization or 60+ Years [...] complete this topic Insurance MEDICARE Care Teams Farm Planner Relationship Specialty Start Date End Date Rhea James MD [address] [place] [address] [place] [address] PCP - General FAMILY PRACTICE 02/12/21
--- OUTSIDE RECORDS SUMMARY | 2025-03-04 15:00 | XMS_ITS | Encounter Summary ---
Author Organization [facility] Address 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
--- OUTSIDE RECORDS SUMMARY | 2025-03-04 15:00 | XMS_ITS | Encounter Summary ---
Author Organization [facility] Address 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
== END 2025-03-04 14:17 | disposition home or self-care (01) ==
LOC: ANHFOHIMG 14:18
PROVIDERS: PCP Nurse Practitioner Family; Visit Provider Surgery
DX: N63.25 Unspecified lump in the left breast, overlapping quadrants (principal); N63.21 Unspecified lump in the left breast, upper outer quadrant; N63.24 Unspecified lump in the left breast, lower inner quadrant
CPT/HCPCS: 76642

== ENCOUNTER 2025-03-07 07:02 | Outpatient (CLI) | payer MEDICARE, OTHER, SELFPAY ==
--- NOTE | ~2025-03-07 | XR_ITS ---
XR lumbar spine min 4V Indication: M51.369 - Other intervertebral disc degeneration, lumbar ... Comparison: None Findings: The vertebral alignment intact, no fracture, no subluxation flexion-extension Moderate loss of disc at L4-5 and L5-S1. Soft tissues unremarkable Impression: No acute abnormality. Reviewed, dictated and finalized at location P. Impression: No acute abnormality.
--- NOTE | ~2025-03-07 | XR_ITS ---
XR cervical spine 4-5V Indication: R20.0 - Anesthesia of skin Comparison: None Findings: Grade 1 anterolisthesis of C4 on C5 and C3 on C4, no fracture, no subluxation flexion and extension. Severe loss of disc height C5-6 and C6-7 Soft tissues unremarkable Impression: No acute abnormality. Reviewed, dictated and finalized at location P. Impression: No acute abnormality.
== END 2025-03-07 07:03 | disposition home or self-care (01) ==
PROVIDERS: PCP Nurse Practitioner Family; Visit Provider Nurse Practitioner Adult Health
DX: M51.369 Other intervertebral disc degeneration, lumbar region without mention of lumbar back pain or lower extremity pain (principal); R20.0 Anesthesia of skin; R20.2 Paresthesia of skin
CPT/HCPCS: 72050; 72110